=== PATIENT | female | born 1935 | race Caucasian/White ===

== ENCOUNTER 2017-03-31 07:12 | Emergency (ER) | payer MEDICARE, BC ==
[2017-03-31 07:33] VITALS: BP 184/109
--- NOTE | 2017-03-31 08:17 | EDM.PDOC ---
ED HPI GENERAL MEDICAL PROBLEM - General Chief Complaint: Respiratory Problem Stated Complaint: RESPIRATORY ISSUES Time Seen by Provider: 03/31/17 07:16 Source of Information: Reports: Family (2 daughters + [id number]) History Limitations: Reports: Altered Mental Status - History of Present Illness INITIAL COMMENTS - FREE TEXT/NARRATIVE: The patient has Alzheimer dementia and is unable to contribute to her history. The patient's 2 daughters and [id number] state that the patient woke this morning screaming, appearing to be short of breath, complaining of chest pain and left second toe pain. She had a cough. They state that she has had cold- like symptoms, including rhinorrhea, for approximately 10 days, and state that her urine has been malodorous for the past 3-4 days. The patient has not had a fever. No recent vomiting. She had some watery diarrhea 2 or 3 days ago, but appeared to be constipated today. The patient has a history of diabetes, hypertension, and dyslipidemia, but no heart or lung disease. The family relates that the patient's about a week ago. She lives at home with family members. The family does not know if the patient received an influenza vaccine this season. The patient's PCP is Dr. Anisa York. 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: Neurological History: Reports: Alzheimers Disease Psychiatric History: Reports: Depression Endocrine/Metabolic History: Reports: Diabetes, Type II, Hypothyroidism, Obesity /BMI 30+ - Past Surgical History HEENT Surgical History: Reports: Cataract Surgery Musculoskeletal Surgical History: Reports: Hip Replacement (right) Social & Family History - Tobacco Use Smoking Status *Q: Never Smoker Month Tobacco Last Used: 30 yrs ago Second Hand Smoke Exposure: No - Caffeine Use Caffeine Use: Reports: Coffee - Recreational Drug Use Recreational Drug Use: No - Living Situation & Occupation Living situation: Reports: , with Family Occupation: Retired ED ROS GENERAL - Review of Systems Review Of Systems: ROS reveals no pertinent complaints other than HPI. ED EXAM, GENERAL - Physical Exam Exam: See Below Exam Limited By: Altered Mental Status General Appearance: WD/WN, Other (The patient remained with her eyes closed shut , moaning, however, she did take deep breaths upon request) Ears: Normal External Exam, Hearing Grossly Normal Nose: Normal Inspection, No Blood Throat/Mouth: Normal Inspection, Normal Lips, Normal Voice, No Airway Compromise Head: Atraumatic, Normocephalic Neck: Normal Inspection, Full Range of Motion Respiratory/Chest: No Respiratory Distress, Lungs Clear, Normal Breath Sounds, No Accessory Muscle Use Cardiovascular: Normal Peripheral Pulses, No Gallop, No JVD, No Murmur, No Rub, Irregularly Irregular Peripheral Pulses: 4+: Radial (L), Radial (R) GI/Abdominal: Normal Bowel Sounds, Soft, No Organomegaly, No Distention, No Abnormal Bruit, No Mass, Tender (Generalized, non-focal (manifested by increased moaning)), Other (Obese) (Female) Exam: Deferred Rectal (Female) Exam: Deferred Extremities: Normal Inspection, Normal Range of Motion, Non-Tender (including the left 2nd toe, which has had thetoenail removed), No Pedal Edema, Normal Capillary Refill, Other (No swelling or erythema, to suggest an infection) Neurological: Other (Moves all 4 extremities spontaneously.) Psychiatric: Other (Unable to assess) Skin Exam: Warm, Dry, Intact, Normal Color, No Rash EKG INTERPRETATION EKG Date: 03/31/17 Time: 08:40 Rhythm: Other (Wandering atrial pacemaker) Rate (Beats/Min): 96 Fleming: LAD-Left Fleming Deviation P-Wave: Present QRS: Normal ST-T: Normal QT: Prolonged (QTc 519 ms) Comparison: NA - No Prior EKG Course - Vital Signs Last Recorded V/S: Last Vital Signs Temp 36.3 C 03/31/17 07:24 Pulse 89 03/31/17 07:24 Resp 20 03/31/17 07:24 BP 184/109 H 03/31/17 07:24 Pulse Ox 95 03/31/17 07:24 - Orders/Labs/Meds Orders: Active Orders 24 hr Category Date Time Status EKG Documentation Completion [RC] STAT Care 03/31/17 08:07 Active CULTURE URINE [RM] Stat Lab 03/31/17 08:40 Received Magnesium Sulfate/Water [Magnesium Sulfate 2 GM in Med 03/31/17 08:58 Active Water 50 ML] 2 gm Premix Bag 1 bag IV ONETIME Medication Orders Magnesium Sulfate 2 gm/ Premix 50 mls @ 50 mls/hr IV ONETIME ONE Stop: 03/31/17 09:57 Last Admin: 03/31/17 09:16 Dose: 50 mls/hr Labs: Laboratory Tests 03/31/17 03/31/17 03/31/17 Range/Units 07:25 07:25 08:30 WBC 6.89 (3.98-10.04) K/mm3 RBC 4.66 (3.98-5.22) M/mm3 Hgb 13.9 (11.2-15.7) gm/L Hct 41.7 (34.1-44.9) % MCV 89.5 (79.4-94.8) fl MCH 29.8 (25.6-32.2) pg MCHC 33.3 (32.2-35.5) g/dl RDW Std Deviation 44.1 (36.4-46.3) fL Plt Count 198 (182-369) K/mm3 MPV 11.9 (9.4-12.3) fl Neutrophils % (Manual) 29 L (40-60) % Band Neutrophils % 0 (0-10) % Lymphocytes % (Manual) 58 H (20-40) % Atypical Lymphs % 0 % Monocytes % (Manual) 10 (2-10) % Eosinophils % (Manual) 2 (0.7-5.8) % Basophils % (Manual) 1 (0.1-1.2) Differential Comment See note Platelet Estimate Adequate RBC Morph Comment Normal Sodium 140 (136-145) mEq/L Potassium 4.1 (3.5-5.1) mEq/L Chloride 102 (98-107) mEq/L Carbon Dioxide 26 (21-32) mEq/L Anion Gap 16.1 H (5-15) BUN 18 (7-18) mg/dL Creatinine 1.1 H (0.55-1.02) mg/dL Est Cr Clr Drug Dosing 35.22 mL/min Estimated GFR (MDRD) 48 (>60) mL/min BUN/Creatinine Ratio 16.4 (14-18) Glucose 148 H (83-115) mg/dL Calcium 8.9 (8.5-10.1) mg/dL Magnesium 1.4 L (1.8-2.4) mg/dl Total Bilirubin 0.3 (0.2-1.0) mg/dL AST 15 (15-37) U/L ALT 19 (14-59) U/L Alkaline Phosphatase 59 (46-116) U/L Troponin I < 0.017 (0.00-0.056) ng/mL NT-Pro-B Natriuret Pep 317 (0-450) pg/mL Total Protein 7.5 (6.4-8.2) g/dl Albumin 3.2 L (3.4-5.0) g/dl Globulin 4.3 gm/dL Albumin/Globulin Ratio 0.7 L (1-2) Lipase 142 (73-393) U/L Urine Color Yellow (Yellow) Urine Appearance Cloudy H (Clear) Urine pH 6.0 (5.0-8.0) Ur Specific Cameron 1.020 (1.005-1.030) Urine Protein 1+ H (Negative) Urine Glucose (UA) Negative (Negative) Urine Ketones Negative (Negative) Urine Occult Blood Trace-lysed H (Negative) Urine Nitrite Positive H (Negative) Urine Bilirubin Negative (Negative) Urine Urobilinogen 0.2 (0.2-1.0) Ur Leukocyte Esterase 2+ H (Negative) Urine RBC 0-5 (0-5) /hpf Urine WBC 20-30 H (0-5) /hpf Ur Epithelial Cells 0-5 (0-5) /hpf Urine Bacteria Many H (FEW) /hpf Urine Mucus Few (FEW) /hpf Meds: Medications Generic Name Dose Route Start Last Admin Trade Name Freq PRN Reason Stop Dose Admin Magnesium Sulfate 2 gm/ Premix 50 mls @ 50 mls/hr 03/31/17 08:58 03/31/17 09: 16 IV 03/31/17 09:57 50 mls/hr ONETIME ONE Administration Discontinued Medications Generic Name Dose Route Start Last Admin Trade Name Freq PRN Reason Stop Dose Admin Trimethoprim/Sulfamethoxazole 1 tab 03/31/17 09:06 03/31/17 09:17 Septra Ds PO 03/31/17 09:07 1 tab ONETIME ONE Administration - Re-Assessments/Exams Free Text/Narrative Re-Assessment/Exam: 03/31/17 09:05 Two-view chest radiograph appears to be grossly normal. Cardiac silhouette is within normal limits. No pulmonary vascular congestion. No pleural effusions. No focal infiltrate. No pneumothorax. Formal read per the Radiologist pending. 03/31/17 09:06 The patient's urinalysis is consistent with a UTI. I have ordered a urine culture, and will start the patient on empiric oral Bactrim. The patient's magnesium level returned depressed at 1.4. I have ordered a 2 g magnesium rider. The remainder of the patient's workup is unremarkable. I do not see an indication for hospitalization. Once the patient's magnesium rider has infused, I will discharge her home. 03/31/17 09:46 The above plan was discussed with 3 family members at the bedside. 03/31/17 09:53 2 of the patient's daughters stated that the for the patient's is on Friday, and, speculating that the patient's earlier chest pain was related to anxiety, were wondering if I could prescribe some Xanax. Given the patient's age and fragility, however, I do not feel that would be appropriate for me to do. I recommended that they talk to Dr. York about that. 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 Workup in the ER included blood work, a urinalysis, and influenza swab, an ECG, and a chest x-ray. Her workup found that she has a urinary tract infection. She has been started on the antibiotic Bactrim. She should take one tablet every 12 hours, as prescribed. She should finish the entire prescription unless told otherwise by Dr. York. Her workup also found modestly low magnesium. Her magnesium was replaced by IV in the ER. Her ECG has an abnormality known as a wandering atrial pacemaker. This is not serious, and may have been there for a long time - we do not have any old ECGs to compare. A sample of her urine was sent for culture. Contact the office of Dr. Anisa York on , 04/03/2017, to check on the urine culture results, to make sure that Tabitha is on the correct antibiotic. If any other problems, please do not hesitate to return Tabitha to the ER. - My Orders Last 24 Hours: My Active Orders 03/31/17 08:07 EKG Documentation Completion [RC] STAT 03/31/17 08:40 CULTURE URINE [RM] Stat 03/31/17 08:58 Magnesium Sulfate/Water [Magnesium Sulfate 2 GM in Water 50 ML] 2 gm Premix Bag 1 bag IV ONETIME - Assessment/Plan Last 24 Hours: My Active Orders 03/31/17 08:07 EKG Documentation Completion [RC] STAT 03/31/17 08:40 CULTURE URINE [RM] Stat 03/31/17 08:58 Magnesium Sulfate/Water [Magnesium Sulfate 2 GM in Water 50 ML] 2 gm Premix Bag 1 bag IV ONETIME
--- NOTE | 2017-03-31 08:54 | CR ---
Chest: Two views of the chest were obtained. Comparison: No prior chest x-ray. Heart size and mediastinum are normal. Lungs are clear. Bony structures are within normal limits for the patient's age. Impression: 1. Nothing acute is seen on two-view chest x-ray. Diagnostic code #1
[2017-03-31] MEDS ORDERED: Magnesium Sulfate/Water 2 GM in Premix Bag 1 BAG IV ONE (08:58)
[2017-03-31] MEDS ORDERED: Sulfamethoxazole/Trimethoprim 800-160 MG Tab PO ONE (09:06)
== END 2017-03-31 10:44 | disposition home or self-care (01) ==
LOC: JD.ED 07:12
DX: I49.8 Other specified cardiac arrhythmias (principal); E11.9 Type 2 diabetes mellitus without complications; N30.01 Acute cystitis with hematuria; E83.42 Hypomagnesemia; I10 Essential (primary) hypertension; G30.9 Alzheimer's disease, unspecified; E78.00 Pure hypercholesterolemia, unspecified; E78.5 Hyperlipidemia, unspecified
CPT/HCPCS: 36415; 71046; 80053; 81001; 83690; 83735; 83880; 84484; 85025; 87086; 87088; 87186; 87804; 93005; 96365; 99285; A9270; 93010; J3475

== ENCOUNTER 2017-11-08 22:03 | Emergency (ER) | payer MEDICARE, BC ==
[2017-11-08 22:22] VITALS: BP 150/60
--- NOTE | 2017-11-08 22:47 | EDM.PDOC ---
ED HPI GENERAL MEDICAL PROBLEM - General Chief Complaint: Chest Pain Stated Complaint: PAIN UNDER RIGHT SHOULDER BLADE/SOB Time Seen by Provider: 11/08/17 22:47 Source of Information: Reports: Patient History Limitations: Reports: No Limitations - History of Present Illness INITIAL COMMENTS - FREE TEXT/NARRATIVE: 82-year-old female presents to the ED with 2 of her daughters. Tonight she is just not feeling well. She is complaining of pain that seems to sit underneath her right breast and pressure discomfort in her epigastrium with associated excessive belching to try and relieve the discomfort. Pain along her right shoulder blade which is gnawing at her. No known injuries to this area although she did fall a week ago but landed more in her hip on the left side. States she is perhaps a little more short of breath today than usual. Denies cough or sputum production. Denies fever or chills. Eyes any central chest pain. Denies any nausea or vomiting. Onset: Today, Sudden Onset Date: 11/08/17 Onset Time: 12:00 Duration: Hour(s): Location: Reports: Abdomen (Epigastric pain with radiation of pain along the costal margin which radiates through to her mid back. This is been a recurrent problem is worse today.), Back (Right upper back adjacent to her shoulder blade. ) Quality: Reports: Ache, Burning, Throbbing, Other Severity: Moderate (No position is comfortable in her upper back. Pain is rated as 7 out of 10) Improves with: Reports: None Worsens with: Reports: Movement Context: Denies: Activity (Certain movements seem to make it a bit worse), Exercise, Lifting, Sick Contact, Trauma, Other Associated Symptoms: Reports: Malaise, Shortness of Breath. 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 (see below) (No new medications.) Right Back Pain Score (Numeric/FACES): 10 - Related Data Allergies Allergy/AdvReac Type Severity Reaction Status Date / Time No Known Allergies Allergy Verified 03/31/17 07:34 Home Meds: Home Meds Furosemide [Lasix] 40 mg PO DAILY 03/31/17 [History] Insulin Aspart [Novolog Flexpen] 14 injection SUBCUT ACBREAKFAST 03/31/17 [ History] Insulin Detemir [Levemir Flextouch] 60 units SUBCUT QAM 03/31/17 [History] Levothyroxine [Levothroid] 137 mcg PO DAILY 03/31/17 [History] Lisinopril [Zestril] 20 mg PO BID 03/31/17 [History] Pravastatin [Pravachol] 20 mg PO DAILY 03/31/17 [History] Sertraline [Zoloft] 75 mg PO DAILY 03/31/17 [History] amLODIPine [Norvasc] 7.5 mg PO DAILY 03/31/17 [History] glipiZIDE [Glucotrol] 5 mg PO DAILY 03/31/17 [History] metFORMIN [Glucophage] 850 mg PO BID 03/31/17 [History] Acetaminophen [Acetaminophen Extra Strength] 1,000 mg PO BEDTIME 11/08/17 [ History] Aspirin 81 mg PO DAILY 11/08/17 [History] Gabapentin [Neurontin] 600 mg PO TID 11/08/17 [History] Insulin Aspart [NovoLOG] 7 units SQ ACLUNCH 11/08/17 [History] Insulin Aspart [NovoLOG] 10 units SQ ACDINNER 11/08/17 [History] Magnesium Oxide 400 mg PO BID 11/08/17 [History] Potassium Chloride 10 meq PO DAILY 11/08/17 [History] Pramipexole Di-HCl [Mirapex] 0.125 mg PO BEDTIME 11/08/17 [History] Sennosides [Senna] 8.6 mg PO DAILY 11/08/17 [History] Dicyclomine [Bentyl] 20 mg PO Q6H PRN #20 tablet 11/09/17 [Rx] oxyCODONE HCl/Acetaminophen [Percocet 5-325 mg Tablet] 1 each PO Q6H PRN #10 tablet 11/09/17 [Rx] Past Medical History HEENT History: Reports: Impaired Vision Other HEENT History: Wears glasses Cardiovascular History: Reports: Heart Failure, High Cholesterol, Hypertension, [place] Gastrointestinal History: Reports: GERD Genitourinary History: Reports: UTI, 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: Neurological History: Reports: Alzheimers Disease Psychiatric History: Reports: Dementia, Depression Endocrine/Metabolic History: Reports: Diabetes, Type II (Using insulin for current sugar control), Hypothyroidism (On supplementation), Obesity/BMI 30+, Vitamin D Deficiency (Hypomagnesemia), Other (See Below) - Past Surgical History HEENT Surgical History: Reports: Cataract Surgery Musculoskeletal Surgical History: Reports: Hip Replacement Social & Family History - Caffeine Use Caffeine Use: Reports: Coffee - Living Situation & Occupation Living situation: Reports: , with Family Occupation: Retired ED ROS GENERAL - Review of Systems Review Of Systems: See Below Constitutional: Reports: Malaise, Weakness, Fatigue, Decreased Appetite. Denies : Fever, Chills, Weight Loss HEENT: Reports: Glasses, Vertigo (Occasional.). Denies: Hearing Loss, Nosebleed , Nose Pain, Rhinitis, Throat Swelling Respiratory: Reports: Shortness of Breath. Denies: Wheezing, Pleuritic Chest Pain (Perhaps a little worse today), Cough, Sputum, Hemoptysis Cardiovascular: Reports: Blood Pressure Problem (Has chronic hypertension.), Dyspnea on Exertion. Denies: Chest Pain, Claudication, Edema, Lightheadedness, Orthopnea, Palpitations (Chronically) Endocrine: Reports: Fatigue, High Glucose GI/Abdominal: Reports: Abdominal Pain (Epigastric pain associated with a lot of burping and belching chronically to try and relieve this discomfort.), Constipation : Reports: Frequency, Incontinence (Post stress and urge components.) Musculoskeletal: Reports: Joint Pain (Knees hips back and neck.) Skin: Reports: No Symptoms Neurological: Reports: Difficulty Walking (Can't walk very far due to leg weakness and pain in her knees and hips). Denies: Confusion, Dizziness, Headache, Numbness, Pre-Existing Deficit, Seizure, Syncope, Tingling Psychiatric: Reports: No Symptoms Hematologic/Lymphatic: Reports: No Symptoms Immunologic: Reports: No Symptoms ED EXAM, GENERAL - Physical Exam Exam: See Below Exam Limited By: No Limitations General Appearance: Alert, WD/WN, Moderate Distress (Just seems to be out of sorts with no position,.) Eye Exam: Bilateral Eye: Normal Inspection Neck: Normal Inspection, Limited Range of Motion, Tender Lateral (Bilateral cervical neck discomfort to palpation both posterior arthritic changes). No: Carotid Bruit, Lymphadenopathy (L), Lymphadenopathy (R) Respiratory/Chest: Respiratory Distress (Mild tachypnea at rest. O2 sats are 94 % on room air), Decreased Breath Sounds (Decreased breath sounds to the lower 20 % of lung cooper bilaterally), Crackles (Patient has crackles/rales in both bases perhaps a little worse on the right as compared to the left.) Cardiovascular: Regular Rate, Rhythm, No Edema, No Gallop, No Murmur, No Rub. No: Normal Peripheral Pulses Peripheral Pulses: 0: Posterior Tibial (L), Posterior Tibial (R), Dorsalis Pedis (L), Dorsalis Pedis (R), 1+: Femoral (L), Femoral (R), 2+: Carotid (L), Carotid (R), Radial (L), Radial (R) GI/Abdominal: Normal Bowel Sounds, Soft, Distended (Mildly distended and slightly hyperattenuated tympanitic to percussion in the epigastrium compatible with aerophagia.), Tender (Tenderness primarily in the epigastrium and along the costal margins bilaterally. No positive Bal's sign.) Back Exam: Decreased Range of Motion, Vertebral Tenderness (She has diffuse tenderness along the vertebra of the lumbar spine bilaterally.), Other (Patient has paraspinal muscle spasm on the right side from thoracic 4 to thoracic 9 vertebral. She has maximal point tenderness at the C5 rib head which seems to be causing a good deal of her right mid back pain.). No: CVA Tenderness (L), CVA Tenderness (R) Extremities: Limited Range of Motion (She has evidence most arthritic changes both knees and is severely limited range of motion both hips externally rotated compared with most arthritic changes.), Other (Labs are nontender with no evidence of DVT.). No: Normal Range of Motion Neurological: Alert, Oriented, CN II-XII Intact, Normal Cognition, Normal Gait Psychiatric: Normal Affect, Anxious Skin Exam: Warm, Dry (Mild), Intact, Normal Color, No Rash EKG INTERPRETATION EKG Date: 11/08/17 Time: 23:05 Rhythm: NSR Rate (Beats/Min): 72 [place]: LAD-Left [place] Deviation (-45) P-Wave: Present QRS: Other (There is initial poor R-wave progression with development of Q waves V4 V5 and V6 compatible with a anterior apical infarction. There are Q waves also in leads II, III, and F aVF compatible with an inferior wall myocardial infarction.) ST-T: Other (T-wave flattening in aVL which is nonspecific) QT: Normal EKG Interpretation Comments: Abnormal ECG Course - Vital Signs Last Recorded V/S: Last Vital Signs Temp 36.6 C 11/08/17 22:19 Pulse 67 11/08/17 22:19 Resp 21 H 11/08/17 22:19 BP 150/60 H 11/08/17 22:19 Pulse Ox 94 L 11/08/17 22:19 - Orders/Labs/Meds Orders: Active Orders 24 hr Category Date Time Status EKG Documentation Completion [RC] STAT Care 11/08/17 22:48 Active Chest 1V Frontal [CR] Stat Exams 11/08/17 22:48 Taken Labs: Laboratory Tests 11/08/17 11/08/17 11/08/17 Range/Units 23:04 23:04 23:04 WBC 10.15 H (3.98-10.04) K/mm3 RBC 4.66 (3.98-5.22) M/mm3 Hgb 13.1 (11.2-15.7) gm/L Hct 39.6 (34.1-44.9) % MCV 85.0 (79.4-94.8) fl MCH 28.1 (25.6-32.2) pg MCHC 33.1 (32.2-35.5) g/dl RDW Std Deviation 43.0 (36.4-46.3) fL Plt Count 229 (182-369) K/mm3 MPV 11.4 (9.4-12.3) fl Neutrophils % (Manual) 72 H (40-60) % Band Neutrophils % 1 (0-10) % Lymphocytes % (Manual) 22 (20-40) % Atypical Lymphs % 0 % Monocytes % (Manual) 4 (2-10) % Eosinophils % (Manual) 1 (0.7-5.8) % Basophils % (Manual) 0 L (0.1-1.2) Platelet Estimate Adequate RBC Morph Comment Normal PT 10.5 (9.5-12.1) SECONDS INR 0.96 D-Dimer, Quantitative 0.51 H (0.19-0.50) mg/L Sodium 137 (136-145) mEq/L Potassium 4.8 (3.5-5.1) mEq/L Chloride 102 (98-107) mEq/L Carbon Dioxide 25 (21-32) mEq/L Anion Gap 14.8 (5-15) BUN 21 H (7-18) mg/dL Creatinine 1.2 H (0.55-1.02) mg/dL Est Cr Clr Drug Dosing 26.41 mL/min Estimated GFR (MDRD) 43 (>60) mL/min BUN/Creatinine Ratio 17.5 (14-18) Glucose 121 H (83-115) mg/dL Calcium 9.5 (8.5-10.1) mg/dL Magnesium 1.6 L (1.8-2.4) mg/dl Total Bilirubin 0.2 (0.2-1.0) mg/dL AST 16 (15-37) U/L ALT 17 (14-59) U/L Alkaline Phosphatase 93 (46-116) U/L CK-MB (CK-2) 2.1 (0-3.6) ng/ml Troponin I < 0.017 (0.00-0.056) ng/mL C-Reactive Protein 0.2 (<1.0) mg/dL NT-Pro-B Natriuret Pep (0-450) pg/mL Total Protein 7.7 (6.4-8.2) g/dl Albumin 3.4 (3.4-5.0) g/dl Globulin 4.3 gm/dL Albumin/Globulin Ratio 0.8 L (1-2) /18/18 Range/Units 23:04 WBC (3.98-10.04) K/mm3 RBC (3.98-5.22) M/mm3 Hgb (11.2-15.7) gm/L Hct (34.1-44.9) % MCV (79.4-94.8) fl MCH (25.6-32.2) pg MCHC (32.2-35.5) g/dl RDW Std Deviation (36.4-46.3) fL Plt Count (182-369) K/mm3 MPV (9.4-12.3) fl Neutrophils % (Manual) (40-60) % Band Neutrophils % (0-10) % Lymphocytes % (Manual) (20-40) % Atypical Lymphs % % Monocytes % (Manual) (2-10) % Eosinophils % (Manual) (0.7-5.8) % Basophils % (Manual) (0.1-1.2) Platelet Estimate RBC Morph Comment PT (9.5-12.1) SECONDS INR D-Dimer, Quantitative (0.19-0.50) mg/L Sodium (136-145) mEq/L Potassium (3.5-5.1) mEq/L Chloride (98-107) mEq/L Carbon Dioxide (21-32) mEq/L Anion Gap (5-15) BUN (7-18) mg/dL Creatinine (0.55-1.02) mg/dL Est Cr Clr Drug Dosing mL/min Estimated GFR (MDRD) (>60) mL/min BUN/Creatinine Ratio (14-18) Glucose (83-115) mg/dL Calcium (8.5-10.1) mg/dL Magnesium (1.8-2.4) mg/dl Total Bilirubin (0.2-1.0) mg/dL AST (15-37) U/L ALT (14-59) U/L Alkaline Phosphatase (46-116) U/L CK-MB (CK-2) (0-3.6) ng/ml Troponin I (0.00-0.056) ng/mL C-Reactive Protein (<1.0) mg/dL NT-Pro-B Natriuret Pep 617 H (0-450) pg/mL Total Protein (6.4-8.2) g/dl Albumin (3.4-5.0) g/dl Globulin gm/dL Albumin/Globulin Ratio (1-2) Meds: Medications Discontinued Medications Generic Name Dose Route Start Last Admin Trade Name Elian PRN Reason Stop Dose Admin Dicyclomine HCl 20 mg 11/09/17 00:36 11/09/17 00:53 Bentyl PO 11/09/17 00:37 20 mg ONETIME ONE Administration Ondansetron HCl 4 mg 11/09/17 00:38 11/09/17 00:52 Zofran Odt PO 11/09/17 00:39 4 mg ONETIME ONE Administration Oxycodone/Acetaminophen 1 tab 11/09/17 00:38 11/09/17 00:52 Percocet 325-5 Mg PO 11/09/17 00:39 1 tab ONETIME ONE Administration - Radiology Interpretation Free Text/Narrative:: 82-year-old female brought to the ED by 2 of her daughters due to her just generally feeling poor. She is complaining primarily of pain in her right upper back between her shoulder blade in her spine. No known injuries. She has associated epigastric pressure discomfort with excessive burping and belching. He just doesn't feel well. No noted fever or chills. Is a history of insulin- dependent diabetes and sugars tend to run around 180. She does has urinary frequency. Denies any dysuria at this time. Perhaps is a little more short of breath than normal. She hasn't a lot of burping and belching to try and relieve epigastric pressure discomfort. This is a chronic problem. She never been told she has a hiatal hernia in the past but clinically this is highly suspect. Examination reveals paraspinal muscle spasm on the right side over rib head subluxation at thoracic 5 rib head. She has diffuse low back pain due to degenerative arthritic changes. He is tender in the epigastrium. Plan ECG chest x-ray to be done portably rule out myocardial infarction and PE. Medically her pain appears to be musculoskeletal in origin. Her abdominal discomfort and excessive burping and belching is most likely due to hiatal hernia. - Re-Assessments/Exams Free Text/Narrative Re-Assessment/Exam: 11/09/17 00:29 chest x-ray done portably reveals moderate cardiomegaly. 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 There is mild tortuosity of the thoracic aorta. There is very mild diffuse vascular congestion pattern with no pleural effusions. Transfer text. 11/09/17 00:32 Labs revealed a mildly elevated white count at 10.15 within 72% neutrophils and 1% band cells reported. Hemoglobin is 13.1 with hematocrit of 39.6. PT is 10.5 with an INR 0.96. D-dimer is 0.51 which is normal for her age. Sodium is 137 with potassium of 4.8. Cord 102 with a bicarbonate 25. And a gap is normal at 14.8. BUN is minimally elevated at 21 with a creatinine of 1.2. EGFR is reported to be 43. This suggests grade 3 renal insufficiency. Blood sugar today is 121. Calcium is 9.5 magnesium is slightly low at 1.6. Lobe and is 0.2. AST is 16 and ALT is 17. Alkaline phosphatase normal at 93. CK-MB fraction is 2.1 with a troponin I of less than 0.017. C-reactive protein is 0.2. BNP is elevated at 617. Patient and daughter is reassured of the findings. Peers that her pain is musculoskeletal in origin. Plan is to give her one Percocet tablet now for pain relief with Zofran 4 mg sublingually. Bentyl 29 g will also be given by mouth to help alleviate upper epigastric pain which I believe is due to hiatal hernia discomfort. She will need to see a chiropractor to have a rib heads luxation reduced in her right upper back. I did write a prescription for Bentyl 20 mg to be used on a every 6-8 hour when necessary basis for similar type symptoms with excessive burping belching due to hiatal hernia type pain. Advised her to increase her Lasix dose from 40 mg once daily in the morning to 40 in the morning and 20 in the p.m. for the next week and then follow-up with her personal care physician. Note she is already mildly hypomagnesemic but is on a magnesium supplement but admits she doesn't always take it. Departure - Departure Time of Disposition: 00:39 Disposition: Home, Self-Care 01 Condition: Fair Clinical Impression: Epigastric abdominal pain, Hiatal hernia CHF (congestive heart failure) Qualifiers: Heart failure type: diastolic Heart failure chronicity: chronic Qualified Code( s): I50.32 - Chronic diastolic (congestive) heart failure Acute thoracic back pain Qualifiers: Back pain laterality: right Qualified Code(s): M54.6 - Pain in thoracic spine - Discharge Information *PRESCRIPTION DRUG MONITORING PROGRAM REVIEWED*: Not Applicable *COPY OF PRESCRIPTION DRUG MONITORING REPORT IN PATIENT ROCHELLE: Not Applicable Prescriptions: Dicyclomine [Bentyl] 20 mg PO Q6H PRN #20 tablet PRN Reason: Abdominal cramps/diarrhea oxyCODONE HCl/Acetaminophen [Percocet 5-325 mg Tablet] 1 each PO Q6H PRN #10 tablet PRN Reason: pain relief. Instructions: Hiatal Hernia, Heart Failure Referrals: Anisa York MD [Primary Care Provider] - Forms: ED Department Discharge Additional Instructions: Evaluation in the emergency room tonight in regards to 2 or 3 things. One is development of right upper thoracic back pain which identified to be a rib head subluxation at thoracic 5 level on the right side of your back. For whatever reason this rib head has partially dislocated is causing significant pain and discomfort due to overlying muscle spasm. I would suggest follow-up with the massage therapist or chiropractor have this rib head replaced back in its normal position to alleviate her pain. In the meantime you may use Percocet tablet 1 tablet every 6 hours as needed for pain relief. Second problem is epigastric pain that radiates along the lower rib cage bilaterally and through to mid back highly suggestive of a hiatal hernia. Excessive need to burp and belch with intermittent feeling of nausea as well. Is to use of Bentyl tablet 20 mg every 6-8 hours as needed for relief of this type of discomfort on an as- needed basis. Thirdly identify that there is an excess amount of fluid buildup in your lungs both by lab and x-ray. He need to increase your water pill to 40 mg in the morning and a further dose 20 mg or half a tablet at about 2:00 in the afternoon for the next week to clear the extra fluid out of your lungs. Suggest follow-up with her personal care physician in 7-10 days for recheck. Bentyl is helping her stomach then it may be refilled if there are no other problems. - My Orders Last 24 Hours: My Active Orders 11/08/17 22:48 EKG Documentation Completion [RC] STAT Chest 1V Frontal [CR] Stat - Assessment/Plan Last 24 Hours: My Active Orders 11/08/17 22:48 EKG Documentation Completion [RC] STAT Chest 1V Frontal [CR] Stat
[2017-11-09] MEDS ORDERED: Dicyclomine 10 MG Cap PO ONE (00:36)
[2017-11-09] MEDS ORDERED: Acetaminophen/oxyCODONE 325-5 MG Tab PO ONE (00:38)
[2017-11-09] MEDS ORDERED: Ondansetron 4 MG Tab.DIS PO ONE (00:38)
--- NOTE | 2017-11-13 09:22 | CR ---
Chest: Portable view of the chest was obtained. Comparison: Right chest x-ray of 03/31/17. Heart size and mediastinum are within normal limits. Lungs are clear without acute parenchymal change. Scoliosis is noted within the spine. Impression: 1. Nothing acute is seen on portable chest x-ray. Diagnostic code #2
== END 2017-11-09 00:55 | disposition home or self-care (01) ==
LOC: JD.ED 22:03
DX: I11.0 Hypertensive heart disease with heart failure (principal); I50.32 Chronic diastolic (congestive) heart failure; K44.9 Diaphragmatic hernia without obstruction or gangrene; M54.6 Pain in thoracic spine; I25.2 Old myocardial infarction; E11.9 Type 2 diabetes mellitus without complications; Z79.4 Long term (current) use of insulin; Z79.899 Other long term (current) drug therapy; Z79.84 Long term (current) use of oral hypoglycemic drugs
CPT/HCPCS: 36415; 71045; 80053; 82553; 83735; 83880; 84484; 85007; 85027; 85379; 85610; 86140; 93005; 99285; A9270

== ENCOUNTER 2019-11-20 08:55 | Inpatient (IN) | payer MEDICARE, BC ==
--- NOTE | 2019-11-20 09:17 | EDM.PDOC ---
ED HPI GENERAL MEDICAL PROBLEM - General Chief Complaint: General Stated Complaint: VOMITING/HIGH BP Time Seen by Provider: 11/20/19 09:07 - History of Present Illness INITIAL COMMENTS - FREE TEXT/NARRATIVE: 84-year-old female brought in from [facility]. She has had a fever vomiting and was hypoxic. According to the folks at [facility] I talked to yesterday she was fine this morning she was complaining of her left second toe being painful but she complains of her toes hurting all the time secondary to her diabetic neuropathy. She was found to be hypertensive after a single episode of emesis where she brought up some bilious material and her O2 saturation was about 81% on room air. She looked pale and shaky they checked her blood sugar and it was 180 they checked her blood sugar again it was approximately 250 she did receive her morning insulin. I have no other history on this patient with interviewing the patient she answers simple questions but mostly complains that her toe hurts. - Related Data Allergies Allergy/AdvReac Type Severity Reaction Status Date / Time No Known Allergies Allergy Verified 11/20/19 12:52 Home Meds: Home Meds Furosemide [Lasix] 80 mg PO DAILY 03/31/17 [History] Insulin Aspart [Novolog Flexpen] 18 injection SUBCUT ACBREAKFAST 03/31/17 [History] Insulin Detemir [Levemir Flextouch] 60 units SUBCUT QAM 03/31/17 [History] Levothyroxine [Levothroid] 137 mcg PO DAILY 03/31/17 [History] Sertraline [Zoloft] 100 mg PO DAILY 03/31/17 [History] amLODIPine [Norvasc] 7.5 mg PO DAILY 03/31/17 [History] lisinopriL [Zestril] 20 mg PO BID 03/31/17 [History] metFORMIN [Glucophage] 500 mg PO DAILY 03/31/17 [History] Acetaminophen [Acetaminophen Extra Strength] 650 mg PO BID 11/08/17 [History] Aspirin 81 mg PO DAILY 11/08/17 [History] Gabapentin [Neurontin] 600 mg PO TID 11/08/17 [History] Insulin Aspart [NovoLOG] 12 units SQ ACLUNCH 11/08/17 [History] Insulin Aspart [NovoLOG] 14 units SQ ACDINNER 11/08/17 [History] Magnesium Oxide 400 mg PO BID 11/08/17 [History] Potassium Chloride 10 meq PO DAILY 11/08/17 [History] Pramipexole Di-HCl [Mirapex] 0.25 mg PO BEDTIME 11/08/17 [History] Sennosides [Senna] 8.6 mg PO DAILY 11/08/17 [History] Dicyclomine [Bentyl] 20 mg PO Q6H PRN #20 tablet 11/09/17 [Rx] Acetaminophen [Tylenol] 650 mg PO Q6HR PRN 11/20/19 [History] Cyanocobalamin (Vitamin B12) [Vitamin B13] 500 mcg PO DAILY 11/20/19 [History] Omeprazole 20 mg PO DAILY 11/20/19 [History] Past Medical History HEENT History: Reports: Impaired Vision Other HEENT History: Wears glasses Cardiovascular History: Reports: Heart Failure, High Cholesterol, Hypertension, [place] Gastrointestinal History: Reports: GERD Genitourinary History: Reports: UTI, Recurrent [employer] History: Reports: Neurological History: Reports: Alzheimers Disease Psychiatric History: Reports: Dementia, Depression Endocrine/Metabolic History: Reports: Diabetes, Type II (Using insulin for current sugar control), Hypothyroidism (On supplementation), Obesity/BMI 30+, Vitamin D Deficiency (Hypomagnesemia), Other (See Below) - Past Surgical History HEENT Surgical History: Reports: Cataract Surgery Musculoskeletal Surgical History: Reports: Hip Replacement Social & Family History - Caffeine Use Caffeine Use: Reports: Coffee - Living Situation & Occupation Living situation: Reports: , with Family Occupation: Retired ED ROS GENERAL - Review of Systems Review Of Systems: See Below Reason Not Obtained: Unable to obtain from the patient at this time ED EXAM, GENERAL - Physical Exam Exam: See Below Free Text/Narrative:: Unable to obtain from the patient at this time Exam Limited By: Other (Dementia. She answers simple questions she denies pain other than her toe and when asked other questions she wants to talk about her toe.) General Appearance: Alert, Lethargic, Obese Eye Exam: Bilateral Eye: Normal Inspection Ears: Normal External Exam, Normal Canal, Hearing Grossly Normal, Normal TMs Nose: Normal Inspection, Normal Mucosa, No Blood Throat/Mouth: Normal Inspection, Normal Lips, Normal Gums, Normal Oropharynx, Normal Voice, No Airway Compromise Head: Atraumatic, Normocephalic Neck: Normal Inspection, Supple, Non-Tender, Full Range of Motion. No: Lymphadenopathy (L), Lymphadenopathy (R) Respiratory/Chest: No Respiratory Distress, Lungs Clear Cardiovascular: Regular Rate, Rhythm, No Murmur, Other (He has trace pitting edema in the lower extremities more so in the right) GI/Abdominal: Normal Bowel Sounds, Soft, Non-Tender Extremities: Other (Right lower leg is more erythematous and slightly warm compared to the left. She has trace pitting edema more so on the right) Psychiatric: Other (Significant dementia) Skin Exam: Warm, Dry, Intact Course - Vital Signs Last Recorded V/S: Last Vital Signs Temp 39.4 C H 11/20/19 16:12 Pulse 87 11/20/19 15:27 Resp 20 11/20/19 15:26 BP 137/52 L 11/20/19 15:26 Pulse Ox 91 L 11/20/19 15:27 - Orders/Labs/Meds Orders: Active Orders 24 hr Category Date Time Status CULTURE BLOOD [BC] Stat Lab 11/20/19 09:20 Received CULTURE BLOOD [BC] Stat Lab 11/20/19 09:40 Received CULTURE URINE [RM] Stat Lab 11/20/19 09:15 Received PROCALCITONIN [REF] Stat Lab 11/20/19 09:20 Received VANCOMYCIN TROUGH [CHEM] Timed Lab 11/23/19 12:30 Ordered Lactated Ringers [Ringers, Lactated] 1,000 ml Med 11/20/19 11:00 Active IV ASDIRECTED Pharmacy to Dose - Vancomycin Med 11/20/19 11:15 Active 1 dose .XX ONETIME PRN Blood Culture x2 Reflex Set [OM.PC] Stat Oth 11/20/19 09:32 Ordered Medication Orders Acetaminophen (Tylenol) 325 mg PO Q4H PRN PRN Reason: Pain (Mild 1-3)/fever Last Admin: 11/20/19 16:12 Dose: 325 mg Documented by: NADEEM Budesonide (Pulmicort) 0.5 mg NEB BIDRT NISHA Last Admin: 11/20/19 16:56 Dose: Not Given Documented by: KARIN Dextrose/Water (Dextrose 50% In Water) 50 ml IVPUSH ASDIRECTED PRN PRN Reason: Hypoglycemia Enoxaparin Sodium (Lovenox) 40 mg SUBCUT BID NISHA Guaifenesin (Mucinex) 600 mg PO BID PRN PRN Reason: Cough Hydralazine HCl (Apresoline) 10 mg IVPUSH Q2H PRN PRN Reason: Hypertension Lactated Ringer's (Ringers, Lactated) 1,000 mls @ 150 mls/hr IV ASDIRECTED [facility] Cefazolin Sodium/Dextrose 2 gm (/ Premix) 50 mls @ 100 mls/hr IV Q8H [facility] Last Admin: 11/20/19 12:27 Dose: 100 mls/hr Documented by: NADEEM Ipratropium [place] (Atrovent) 0.5 mg NEB Q8HRRT [facility] Last Admin: 11/20/19 13:47 Dose: 0.5 mg Documented by: KARIN Methyl Salicylate (Icy Hot Cream) 0 gm TOP Q2HR PRN PRN Reason: Pain (mild 1-3) Methylprednisolone Sodium Succinate (Solu-Medrol) 40 mg IVPUSH Q12H [facility] Stop: 11/21/19 04:46 Last Admin: 11/20/19 17:43 Dose: 40 mg Documented by: NADEEM Ondansetron HCl (Zofran) 4 mg IV Q6H PRN PRN Reason: Nausea/Vomiting Vancomycin HCl (Pharmacy To Dose - Vancomycin) 1 dose .XX ONETIME PRN PRN Reason: RX TO DOSE VANCO Labs: Laboratory Tests 11/20/19 11/20/19 11/20/19 Range/Units 09:15 09:20 09:20 WBC 15.61 H (3.98-10.04) K/mm3 RBC 4.92 (3.98-5.22) M/mm3 Hgb 13.2 (11.2-15.7) gm/dl Hct 42.0 (34.1-44.9) % MCV 85.4 (79.4-94.8) fl MCH 26.8 (25.6-32.2) pg MCHC 31.4 L (32.2-35.5) g/dl RDW Std Deviation 44.8 (36.4-46.3) fL Plt Count 233 (182-369) K/mm3 MPV 11.3 (9.4-12.3) fl Neutrophils % (Manual) 88 H (40-60) % Band Neutrophils % 0 (0-10) % Lymphocytes % (Manual) 12 L (20-40) % Atypical Lymphs % 0 % Monocytes % (Manual) 0 L (2-10) % Eosinophils % (Manual) 0 L (0.7-5.8) % Basophils % (Manual) 0 L (0.1-1.2) Platelet Estimate Adequate RBC Morph Comment Normal PT 10.7 (9.7-11.7) SECONDS INR 1.00 Puncture Site ABG pH (7.35-7.45) ABG pCO2 (35.0-45.0) mmHg ABG pO2 (80.0-100.0) mmHg ABG HCO3 (22.0-26.0) meq/L ABG O2 Saturation (96.0-97.0) % ABG Base Excess (-2-2.0) Gianluca Test A-a Gradient mmHg O2 Delivery Device FiO2 (21.00-100.00) % Sodium (136-145) mEq/L Potassium (3.5-5.1) mEq/L Chloride (98-107) mEq/L Carbon Dioxide (21-32) mEq/L Anion Gap (5-15) BUN (7-18) mg/dL Creatinine (0.55-1.02) mg/dL Est Cr Clr Drug Dosing mL/min Estimated GFR (MDRD) (>60) mL/min BUN/Creatinine Ratio (14-18) Glucose (83-115) mg/dL Hemoglobin A1c (4.50-6.20) % Lactic Acid (0.4-2.0) mmol/L Calcium (8.5-10.1) mg/dL Phosphorus (2.6-4.7) mg/dL Magnesium (1.8-2.4) mg/dl Total Bilirubin (0.2-1.0) mg/dL AST (15-37) U/L ALT (14-59) U/L Alkaline Phosphatase (46-116) U/L Troponin I (0.00-0.056) ng/mL NT-Pro-B Natriuret Pep (0-450) pg/mL Total Protein (6.4-8.2) g/dl Albumin (3.4-5.0) g/dl Globulin gm/dL Albumin/Globulin Ratio (1-2) Urine Color Light yellow (Yellow) Urine Appearance Clear (Clear) Urine pH 7.0 (5.0-8.0) Ur Specific [place] 1.020 (1.005-1.030) Urine Protein 1+ H (Negative) Urine Glucose (UA) Negative (Negative) Urine Ketones 1+ H (Negative) Urine Occult Blood Trace-intact H (Negative) Urine Nitrite Negative (Negative) Urine Bilirubin Negative (Negative) Urine Urobilinogen 0.2 (0.2-1.0) Ur Leukocyte Esterase 1+ H (Negative) Urine RBC 0-5 (0-5) /hpf Urine WBC 50-75 H (0-5) /hpf Ur Epithelial Cells 0-5 (0-5) /hpf Urine Bacteria Few (FEW) /hpf Urine Mucus Few (FEW) /hpf SARS Virus RNA (PCR) (NEGATIVE) 11/20/19 11/20/19 11/20/19 Range/Units 09:20 09:20 09:20 WBC (3.98-10.04) K/mm3 RBC (3.98-5.22) M/mm3 Hgb (11.2-15.7) gm/dl Hct (34.1-44.9) % MCV (79.4-94.8) fl MCH (25.6-32.2) pg MCHC (32.2-35.5) g/dl RDW Std Deviation (36.4-46.3) fL Plt Count (182-369) K/mm3 MPV (9.4-12.3) fl Neutrophils % (Manual) (40-60) % Band Neutrophils % (0-10) % Lymphocytes % (Manual) (20-40) % Atypical Lymphs % % Monocytes % (Manual) (2-10) % Eosinophils % (Manual) (0.7-5.8) % Basophils % (Manual) (0.1-1.2) Platelet Estimate RBC Morph Comment PT (9.7-11.7) SECONDS INR Puncture Site ABG pH (7.35-7.45) ABG pCO2 (35.0-45.0) mmHg ABG pO2 (80.0-100.0) mmHg ABG HCO3 (22.0-26.0) meq/L ABG O2 Saturation (96.0-97.0) % ABG Base Excess (-2-2.0) Gianluca Test A-a Gradient mmHg O2 Delivery Device FiO2 (21.00-100.00) % Sodium 133 L (136-145) mEq/L Potassium 4.3 (3.5-5.1) mEq/L Chloride 98 (98-107) mEq/L Carbon Dioxide 29 (21-32) mEq/L Anion Gap 10.3 (5-15) BUN 27 H (7-18) mg/dL Creatinine 1.3 H (0.55-1.02) mg/dL Est Cr Clr Drug Dosing 27.12 mL/min Estimated GFR (MDRD) 39 (>60) mL/min BUN/Creatinine Ratio 20.8 H (14-18) Glucose 209 H (83-115) mg/dL Hemoglobin A1c (4.50-6.20) % Lactic Acid 1.8 (0.4-2.0) mmol/L Calcium 9.3 (8.5-10.1) mg/dL Phosphorus (2.6-4.7) mg/dL Magnesium (1.8-2.4) mg/dl Total Bilirubin 0.5 (0.2-1.0) mg/dL AST 18 (15-37) U/L ALT 18 (14-59) U/L Alkaline Phosphatase 88 (46-116) U/L Troponin I 0.155 H* (0.00-0.056) ng/mL NT-Pro-B Natriuret Pep 740 H (0-450) pg/mL Total Protein 8.5 H (6.4-8.2) g/dl Albumin 3.8 (3.4-5.0) g/dl Globulin 4.7 gm/dL Albumin/Globulin Ratio 0.8 L (1-2) Urine Color (Yellow) Urine Appearance (Clear) Urine pH (5.0-8.0) Ur Specific [place] (1.005-1.030) Urine Protein (Negative) Urine Glucose (UA) (Negative) Urine Ketones (Negative) Urine Occult Blood (Negative) Urine Nitrite (Negative) Urine Bilirubin (Negative) Urine Urobilinogen (0.2-1.0) Ur Leukocyte Esterase (Negative) Urine RBC (0-5) /hpf Urine WBC (0-5) /hpf Ur Epithelial Cells (0-5) /hpf Urine Bacteria (FEW) /hpf Urine Mucus (FEW) /hpf SARS Virus RNA (PCR) (NEGATIVE) 11/20/19 11/20/19 11/20/19 Range/Units 09:20 09:20 09:20 WBC (3.98-10.04) K/mm3 RBC (3.98-5.22) M/mm3 Hgb (11.2-15.7) gm/dl Hct (34.1-44.9) % MCV (79.4-94.8) fl MCH (25.6-32.2) pg MCHC (32.2-35.5) g/dl RDW Std Deviation (36.4-46.3) fL Plt Count (182-369) K/mm3 MPV (9.4-12.3) fl Neutrophils % (Manual) (40-60) % Band Neutrophils % (0-10) % Lymphocytes % (Manual) (20-40) % Atypical Lymphs % % Monocytes % (Manual) (2-10) % Eosinophils % (Manual) (0.7-5.8) % Basophils % (Manual) (0.1-1.2) Platelet Estimate RBC Morph Comment PT (9.7-11.7) SECONDS INR Puncture Site ABG pH (7.35-7.45) ABG pCO2 (35.0-45.0) mmHg ABG pO2 (80.0-100.0) mmHg ABG HCO3 (22.0-26.0) meq/L ABG O2 Saturation (96.0-97.0) % ABG Base Excess (-2-2.0) Gianluca Test A-a Gradient mmHg O2 Delivery Device FiO2 (21.00-100.00) % Sodium (136-145) mEq/L Potassium (3.5-5.1) mEq/L Chloride (98-107) mEq/L Carbon Dioxide (21-32) mEq/L Anion Gap (5-15) BUN (7-18) mg/dL Creatinine (0.55-1.02) mg/dL Est Cr Clr Drug Dosing mL/min Estimated GFR (MDRD) (>60) mL/min BUN/Creatinine Ratio (14-18) Glucose (83-115) mg/dL Hemoglobin A1c (4.50-6.20) % Lactic Acid (0.4-2.0) mmol/L Calcium (8.5-10.1) mg/dL Phosphorus 2.6 (2.6-4.7) mg/dL Magnesium 1.8 (1.8-2.4) mg/dl Total Bilirubin (0.2-1.0) mg/dL AST (15-37) U/L ALT (14-59) U/L Alkaline Phosphatase (46-116) U/L Troponin I (0.00-0.056) ng/mL NT-Pro-B Natriuret Pep (0-450) pg/mL Total Protein (6.4-8.2) g/dl Albumin (3.4-5.0) g/dl Globulin gm/dL Albumin/Globulin Ratio (1-2) Urine Color (Yellow) Urine Appearance (Clear) Urine pH (5.0-8.0) Ur Specific [place] (1.005-1.030) Urine Protein (Negative) Urine Glucose (UA) (Negative) Urine Ketones (Negative) Urine Occult Blood (Negative) Urine Nitrite (Negative) Urine Bilirubin (Negative) Urine Urobilinogen (0.2-1.0) Ur Leukocyte Esterase (Negative) Urine RBC (0-5) /hpf Urine WBC (0-5) /hpf Ur Epithelial Cells (0-5) /hpf Urine Bacteria (FEW) /hpf Urine Mucus (FEW) /hpf SARS Virus RNA (PCR) Negative (NEGATIVE) 11/20/19 11/20/19 Range/Units 09:20 10:23 WBC (3.98-10.04) K/mm3 RBC (3.98-5.22) M/mm3 Hgb (11.2-15.7) gm/dl Hct (34.1-44.9) % MCV (79.4-94.8) fl MCH (25.6-32.2) pg MCHC (32.2-35.5) g/dl RDW Std Deviation (36.4-46.3) fL Plt Count (182-369) K/mm3 MPV (9.4-12.3) fl Neutrophils % (Manual) (40-60) % Band Neutrophils % (0-10) % Lymphocytes % (Manual) (20-40) % Atypical Lymphs % % Monocytes % (Manual) (2-10) % Eosinophils % (Manual) (0.7-5.8) % Basophils % (Manual) (0.1-1.2) Platelet Estimate RBC Morph Comment PT (9.7-11.7) SECONDS INR Puncture Site Rt radial ABG pH 7.45 (7.35-7.45) ABG pCO2 36.9 (35.0-45.0) mmHg ABG pO2 54.0 L (80.0-100.0) mmHg ABG HCO3 25.2 (22.0-26.0) meq/L ABG O2 Saturation 85.1 L (96.0-97.0) % ABG Base Excess 1.8 (-2-2.0) Gianluca Test Positive A-a Gradient 128 mmHg O2 Delivery Device Room air FiO2 21.00 (21.00-100.00) % Sodium (136-145) mEq/L Potassium (3.5-5.1) mEq/L Chloride (98-107) mEq/L Carbon Dioxide (21-32) mEq/L Anion Gap (5-15) BUN (7-18) mg/dL Creatinine (0.55-1.02) mg/dL Est Cr Clr Drug Dosing mL/min Estimated GFR (MDRD) (>60) mL/min BUN/Creatinine Ratio (14-18) Glucose (83-115) mg/dL Hemoglobin A1c 6.00 (4.50-6.20) % Lactic Acid (0.4-2.0) mmol/L Calcium (8.5-10.1) mg/dL Phosphorus (2.6-4.7) mg/dL Magnesium (1.8-2.4) mg/dl Total Bilirubin (0.2-1.0) mg/dL AST (15-37) U/L ALT (14-59) U/L Alkaline Phosphatase (46-116) U/L Troponin I (0.00-0.056) ng/mL NT-Pro-B Natriuret Pep (0-450) pg/mL Total Protein (6.4-8.2) g/dl Albumin (3.4-5.0) g/dl Globulin gm/dL Albumin/Globulin Ratio (1-2) Urine Color (Yellow) Urine Appearance (Clear) Urine pH (5.0-8.0) Ur Specific [place] (1.005-1.030) Urine Protein (Negative) Urine Glucose (UA) (Negative) Urine Ketones (Negative) Urine Occult Blood (Negative) Urine Nitrite (Negative) Urine Bilirubin (Negative) Urine Urobilinogen (0.2-1.0) Ur Leukocyte Esterase (Negative) Urine RBC (0-5) /hpf Urine WBC (0-5) /hpf Ur Epithelial Cells (0-5) /hpf Urine Bacteria (FEW) /hpf Urine Mucus (FEW) /hpf SARS Virus RNA (PCR) (NEGATIVE) Meds: Medications Generic Name Dose Route Start Last Admin Trade Name Freq PRN Reason Stop Dose Admin Acetaminophen 325 mg 11/20/19 11:25 11/20/19 16:12 Tylenol PO 325 mg Q4H PRN Administration Pain (Mild 1-3)/fever Budesonide 0.5 mg 11/20/19 16:32 11/20/19 16:56 Pulmicort NEB Not Given BIDRT NISHA Dextrose/Water 50 ml 11/20/19 11:32 Dextrose 50% In Water IVPUSH ASDIRECTED PRN Hypoglycemia Enoxaparin Sodium 40 mg 11/20/19 21:00 Lovenox SUBCUT BID NISHA Guaifenesin 600 mg 11/20/19 11:32 Mucinex PO BID PRN Cough Hydralazine HCl 10 mg 11/20/19 11:32 Apresoline IVPUSH Q2H PRN Hypertension Lactated Ringer's 1,000 mls @ 150 mls/hr 11/20/19 11:00 Ringers, Lactated IV ASDIRECTED NISHA Cefazolin Sodium/Dextrose 2 gm 50 mls @ 100 mls/hr 11/20/19 12:00 11/20/19 12:27 / Premix IV 100 mls/hr Q8H NISHA Administration Ipratropium [place] 0.5 mg 11/20/19 14:00 11/20/19 13:47 Atrovent NEB 0.5 mg Q8HRRT NISHA Administration Methyl Salicylate 0 gm 11/20/19 18:18 Icy Hot Cream TOP Q2HR PRN Pain (mild 1-3) Methylprednisolone Sodium Succinate 40 mg 11/20/19 16:45 11/20/19 17:43 Solu-Medrol IVPUSH 11/21/19 04:46 40 mg Q12H NISHA Administration Ondansetron HCl 4 mg 11/20/19 11:25 Zofran IV Q6H PRN Nausea/Vomiting Vancomycin HCl 1 dose 11/20/19 11:15 Pharmacy To Dose - Vancomycin .XX ONETIME PRN RX TO DOSE VANCO Discontinued Medications Generic Name Dose Route Start Last Admin Trade Name Freq PRN Reason Stop Dose Admin Lactated Ringer's 1,000 mls @ 999 mls/hr 11/20/19 09:34 11/20/19 09:42 Ringers, Lactated IV 11/20/19 10:34 999 mls/hr .BOLUS ONE Administration Lactated Ringer's 500 mls @ 999 mls/hr 11/20/19 10:56 11/20/19 11:01 Ringers, Lactated IV 11/20/19 11:26 999 mls/hr .BOLUS ONE Administration Piperacillin Sod/Tazobactam 100 mls @ 200 mls/hr 11/20/19 11:08 11/20/19 11:23 Sod 4.5 gm/ Sodium Chloride IV 11/20/19 11:37 200 mls/hr ONETIME ONE Administration Vancomycin HCl 1 gm/ 500 mls @ 250 mls/hr 11/20/19 13:00 11/20/19 13:07 Vancomycin HCl 500 mg/ Sodium IV 11/20/19 14:59 250 mls/hr Chloride ONETIME ONE Administration Vancomycin HCl 1 gm/ Sodium 250 mls @ 250 mls/hr 11/21/19 13:00 Chloride IV Q24H NISHA Levalbuterol HCl 1.25 mg 11/20/19 16:33 11/20/19 18:47 Xopenex NEB Not Given Q8HRRT NISHA Ondansetron HCl 4 mg 11/20/19 10:07 11/20/19 10:22 Zofran IVPUSH 11/20/19 10:08 4 mg ONETIME ONE Administration - Re-Assessments/Exams Free Text/Narrative Re-Assessment/Exam: 11/20/19 10:34 She has an elevated white count urine is probably suggestive of UTI. Chest x- ray shows no definitive abnormality however she is rotated and I am wondering if perhaps she might have a infiltrate developing in the left lower costophrenic angle. The patient could be septic at this point and will definitely need to be admitted I have notified Dr. Avila, our hospitalist, of the situation and she will see the patient shortly. Departure - Departure Time of Disposition: 10:30 Disposition: Admitted As Inpatient 67 Clinical Impression: Urinary tract infection Qualifiers: Urinary tract infection type: acute cystitis Hematuria presence: with hematuria Qualified Code(s): N30.01 - Acute cystitis with hematuria - Discharge Information Sepsis Event Note (ED) - Focused Exam Vital Signs: Vital Signs Temp Pulse Resp BP Pulse Ox 11/20/19 09:16 38.3 C H 101 H 27 H 164/94 H 80 L - My Orders Last 24 Hours: My Active Orders 11/20/19 09:15 CULTURE URINE [RM] Stat 11/20/19 09:20 CULTURE BLOOD [BC] Stat PROCALCITONIN [REF] Stat 11/20/19 09:32 Blood Culture x2 Reflex Set [OM.PC] Stat 11/20/19 09:40 CULTURE BLOOD [BC] Stat 11/20/19 11:00 Lactated Ringers [Ringers, Lactated] 1,000 ml IV ASDIRECTED 11/20/19 11:15 Pharmacy to Dose - Vancomycin 1 dose .XX ONETIME PRN - Assessment/Plan Last 24 Hours: My Active Orders 11/20/19 09:15 CULTURE URINE [RM] Stat 11/20/19 09:20 CULTURE BLOOD [BC] Stat PROCALCITONIN [REF] Stat 11/20/19 09:32 Blood Culture x2 Reflex Set [OM.PC] Stat 11/20/19 09:40 CULTURE BLOOD [BC] Stat 11/20/19 11:00 Lactated Ringers [Ringers, Lactated] 1,000 ml IV ASDIRECTED 11/20/19 11:15 Pharmacy to Dose - Vancomycin 1 dose .XX ONETIME PRN
[2019-11-20] MEDS ORDERED: Lactated Ringers 1,000 ML IV ONE (09:34)
[2019-11-20] MEDS ORDERED: Ondansetron 4 MG/2 ML SDV IVPUSH ONE (10:07)
[2019-11-20] MEDS ORDERED: Lactated Ringers 500 ML IV ONE (10:56)
[2019-11-20] MEDS ORDERED: Piperacillin/Tazobactam 4.5 GM in Sodium Chloride 0.9% 100 ML IV ONE (11:08)
[2019-11-20] MEDS ORDERED: Ondansetron 4 MG/2 ML SDV IV PRN (11:25)
[2019-11-20] MEDS ORDERED: 50% Dextrose in Water 50 ML Syringe IVPUSH PRN (11:32)
[2019-11-20] MEDS ORDERED: hydrALAZINE 20 MG/ML SDV IVPUSH PRN (11:32)
--- NOTE | 2019-11-20 11:39 | CR ---
Chest: Portable upright view of the chest was obtained. Comparison: Prior chest x-ray of 11/08/17. Heart size and mediastinum are normal. Lung markings are minimally increased from prior study. Difficult to exclude mild bronchitis if patient is correlating symptoms. No alveolar type densities of pneumonia are seen. Bony structures are grossly intact. Impression: 1. Slight increased central lung markings raising the possibility of mild bronchitis. 2. Nothing acute is otherwise seen. Diagnostic code #3 This report was dictated in MDT
--- NOTE | 2019-11-20 11:52 | PCM.HP.2 ---
H&P History of Present Illness - General Date of Service: 11/20/19 Admit Problem/Dx: Admission Diagnosis/Problem Admission Diagnosis/Problem UTI, Urinary tract infectious disease - History of Present Illness Initial Comments - Free Text/Narative: Information obtained by chart review due to patient's cognitive status This is an 84-year-old male with past medical history of diabetes, hypertension and dementia who is brought to the ED via private car sent by [facility] for high blood pressure, vomiting bile, fever and pallor. As per [facility] staff patient was fine yesterday with usual complaints. Found to be hypertensive after vomiting episode and pulse ox dropped to 81%, described as looking pale and shaky. Glucose 180 with repeat 250 Bilateral Foot Pain Score (Numeric/FACES): 5 - Related Data Allergies/Adverse Reactions: Allergies Allergy/AdvReac Type Severity Reaction Status Date / Time No Known Allergies Allergy Verified 11/20/19 12:52 Home Medications: Home Meds Furosemide [Lasix] 80 mg PO DAILY 03/31/17 [History] Insulin Aspart [Novolog Flexpen] 18 injection SUBCUT ACBREAKFAST 03/31/17 [History] Insulin Detemir [Levemir Flextouch] 60 units SUBCUT QAM 03/31/17 [History] Levothyroxine [Levothroid] 137 mcg PO DAILY 03/31/17 [History] Sertraline [Zoloft] 100 mg PO DAILY 03/31/17 [History] amLODIPine [Norvasc] 7.5 mg PO DAILY 03/31/17 [History] lisinopriL [Zestril] 20 mg PO BID 03/31/17 [History] metFORMIN [Glucophage] 500 mg PO DAILY 03/31/17 [History] Acetaminophen [Acetaminophen Extra Strength] 650 mg PO BID 11/08/17 [History] Aspirin 81 mg PO DAILY 11/08/17 [History] Gabapentin [Neurontin] 600 mg PO TID 11/08/17 [History] Insulin Aspart [NovoLOG] 12 units SQ ACLUNCH 11/08/17 [History] Insulin Aspart [NovoLOG] 14 units SQ ACDINNER 11/08/17 [History] Magnesium Oxide 400 mg PO BID 11/08/17 [History] Potassium Chloride 10 meq PO DAILY 11/08/17 [History] Pramipexole Di-HCl [Mirapex] 0.25 mg PO BEDTIME 11/08/17 [History] Sennosides [Senna] 8.6 mg PO DAILY 11/08/17 [History] Dicyclomine [Bentyl] 20 mg PO Q6H PRN #20 tablet 11/09/17 [Rx] Acetaminophen [Tylenol] 650 mg PO Q6HR PRN 11/20/19 [History] Cyanocobalamin (Vitamin B12) [Vitamin B13] 500 mcg PO DAILY 11/20/19 [History] Omeprazole 20 mg PO DAILY 11/20/19 [History] Past Medical History HEENT History: Reports: Impaired Vision Other HEENT History: Wears glasses Cardiovascular History: Reports: Heart Failure, High Cholesterol, Hypertension, [place] Gastrointestinal History: Reports: GERD Genitourinary History: Reports: UTI, Recurrent [employer] History: Reports: Neurological History: Reports: Alzheimers Disease Psychiatric History: Reports: Dementia, Depression Endocrine/Metabolic History: Reports: Diabetes, Type II (Using insulin for current sugar control), Hypothyroidism (On supplementation), Obesity/BMI 30+, Vitamin D Deficiency (Hypomagnesemia), Other (See Below) - Past Surgical History HEENT Surgical History: Reports: Cataract Surgery Musculoskeletal Surgical History: Reports: Hip Replacement Social & Family History - Family History Family Medical History: Noncontributory - Tobacco Use Smoking Status *Q: Never Smoker Second Hand Smoke Exposure: No - Caffeine Use Caffeine Use: Reports: Coffee - Living Situation & Occupation Living situation: Reports: , with Family Occupation: Retired H&P Review of Systems - Review of Systems: Review Of Systems: Unable To Obtain Reason Not Obtained: Patient with cognitive impairment Exam - Exam Exam: See Below - Vital Signs Vital Signs: Last Vital Signs Temp 100.2 F 11/20/19 11:34 Pulse 101 H 11/20/19 09:16 Resp 27 H 11/20/19 09:16 BP 164/94 H 11/20/19 09:16 Pulse Ox 80 L 11/20/19 09:16 Weight: 105.868 kg - Exam Quality Assessment: Supplemental Oxygen General: Alert, Cooperative, Mild Distress, Moderate Distress HEENT: Conjunctiva Clear, EACs Clear, EOMI, Mucosa Moist & [place] Neck: Supple, Trachea Midline, Full Range of Motion, Carotid Bruit. No: Lymphadenopathy Lungs: Clear to Auscultation, Decreased Breath Sounds, Crackles, Wheezing (end expiratory). No: Rales, Rhonchi, Rub, Stridor Cardiovascular: Regular Rate, Regular Rhythm, Systolic Murmur. No: Diastolic Murmur, Rubs, Gallop/S3, Gallop/S4 GI/Abdominal Exam: Normal Bowel Sounds, Soft, Non-Tender, Distended. No: Guarding, Rigid, Rebound Extremities: Other (erythema over right phillips that covers most of anterior surface and goes around leg, no drainage or wounds visible. 1-2+ pitting edema) Peripheral Pulses: 2+: Radial (L), Radial (R), Dorsalis Pedis (L), Dorsalis Pedis (R) Skin: Warm, Dry, Rash Psychiatric: Normal Affect - Patient Data Result Diagrams: 11/22/19 05:20 11/22/19 05:20 Sepsis Event Note - Evaluation Sepsis Screening Result: No Definite Risk - Problem List (1) UTI (urinary tract infection) SNOMED Code(s): 87531547 ICD Code: N39.0 - URINARY TRACT INFECTION, SITE NOT SPECIFIED Status: Acute Current Visit: Yes Qualifiers: Urinary tract infection type: acute cystitis Hematuria presence: with hematuria Qualified Code(s): N30.01 - Acute cystitis with hematuria (2) Cellulitis of right leg without foot SNOMED Code(s): 423935073 ICD Code: L03.115 - CELLULITIS OF RIGHT LOWER LIMB Status: Acute Current Visit: Yes (3) Acute kidney injury SNOMED Code(s): 56495279, 72191280 ICD Code: N17.9 - ACUTE KIDNEY FAILURE, UNSPECIFIED Status: Acute Current Visit: Yes (4) Fever SNOMED Code(s): 893276745 ICD Code: R50.9 - FEVER, UNSPECIFIED Status: Acute Current Visit: Yes (5) Sinus tachycardia SNOMED Code(s): 79306904 ICD Code: R00.0 - TACHYCARDIA, UNSPECIFIED Status: Acute Current Visit: Yes (6) Leukocytosis SNOMED Code(s): 589466335, 256042782 ICD Code: D72.829 - ELEVATED WHITE BLOOD CELL COUNT, UNSPECIFIED Status: Acute Current Visit: Yes (7) Acute hypoxemic respiratory failure SNOMED Code(s): 585272355 ICD Code: J96.01 - ACUTE RESPIRATORY FAILURE WITH HYPOXIA Status: Acute Current Visit: Yes (8) Hypertension SNOMED Code(s): 65914671 ICD Code: I10 - ESSENTIAL (PRIMARY) HYPERTENSION Status: Acute Current Visit: Yes (9) Diabetes mellitus SNOMED Code(s): 20021765 ICD Code: E11.9 - TYPE 2 DIABETES MELLITUS WITHOUT COMPLICATIONS Status: Acute Current Visit: Yes (10) Diastolic heart failure SNOMED Code(s): 157262308 ICD Code: I50.30 - UNSPECIFIED DIASTOLIC (CONGESTIVE) HEART FAILURE Status: Acute Current Visit: Yes (11) Dyslipidemia SNOMED Code(s): 782939731 ICD Code: E78.5 - HYPERLIPIDEMIA, UNSPECIFIED Status: Acute Current Visit: Yes (12) Gastroparesis SNOMED Code(s): 826204139 ICD Code: K31.84 - GASTROPARESIS Status: Acute Current Visit: Yes (13) Hypothyroidism SNOMED Code(s): 76165960 ICD Code: E03.9 - HYPOTHYROIDISM, UNSPECIFIED Status: Acute Current Visit: Yes (14) Depression SNOMED Code(s): 61442139 ICD Code: F32.9 - MAJOR DEPRESSIVE DISORDER, SINGLE EPISODE, UNSPECIFIED Status: Acute Current Visit: Yes (15) Dementia SNOMED Code(s): 39867541 ICD Code: F03.90 - UNSPECIFIED DEMENTIA WITHOUT BEHAVIORAL DISTURBANCE Status: Acute Current Visit: Yes Problem List Initiated/Reviewed/Updated: Yes Assessment/Plan Comment:: ASSESSMENT [facility] for fever hypertension nausea vomiting and hypoxemia Vital signs on admission: BP 164/94, heart rate 101, respiratory rate 27, temperature 101, pulse ox 80% Lab results CBC: WBC 15.61 (88% neutrophils without bands), hemoglobin 13.2, hematocrit 42, platelets 233 CMP: Sodium 133, potassium 4.3, chloride 98, CO2 29, BUN 27, creatinine 1.3, GFR 39, glucose 209, calcium 9.3, magnesium 1.8 Lactate 1.8 Troponin 0 0.155, proBNP 740 Liver function tests: Total bili 0.5, a AST 18, ALT 18, alk phos 88, total protein 8.5, albumin 3.8 Urinalysis: Light yellow, 1.0 20, pH 7, +1 protein, +1 leukocyte esterase, +1 ketones and trace blood, negative nitrites, glucose, bilirubin, urobilinogen Micro WBC 50-75, RBC 0-5 Few bacteria Few mucus ABGs: 7.45/36.9/54/25.2/85.1 Was given all her medications this morning Urine and blood culture sent in the emergency department Meets sirs criteria but does not qualify for sepsis as no end organ damage was identified Physical exam: No CVA tenderness Erythematous rash on anterior right lower leg, no purulent drainage, obvious demarcation PLAN UTI (urinary tract infection) Cellulitis of right leg without foot Leukocytosis/Fever/Sinus tachycardia Start piperacillin tazobactam and cefazolin MRSA PCR Follow-up on blood and urine cultures Trend temperature and panculture if temperature greater than 100.1 Intractable nausea and vomiting Acute kidney injury Hyponatremia Start NS PRN Zofran Monitor urine output Renally dose medications Repeat labs in the morning Acute hypoxemic respiratory failure Continue oxygen supplementation via nasal cannula Pulse ox with vital signs Taper down supplementation as tolerated Hypertension Continue home medications once available Diabetes mellitus Gastroparesis Peripheral neuropathy Continue home insulin Hold any p.o. home medications Scheduled Accu-Cheks before meals and 2 hours after New hemoglobin A1c Hypoglycemia protocol Diastolic heart failure Continue home meds Request prior echocardiogram Dyslipidemia Continue home meds Hypothyroidism Continue home meds Dementia Depression Let me sleep protocol Continue home medications Polypharmacy Reconciled medications prior to discharge as per beers criteria PROPHYLAXIS DVT Lovenox GI not indicated CODE STATUS: DNR/DNI DISPOSITION: Patient will be admitted for IV antibiotics and oxygen supplementation as well as IV fluids. SOCIAL: Resident of [facility] - Mortality Measure Prognosis:: Poor
[2019-11-20] MEDS: ceFAZolin 2 GM in Premix Bag 1 BAG IV SCH ×2 (12:27→22:03)
[2019-11-20] MEDS ORDERED: Vancomycin 1 GM, Vancomycin 500 MG in Sodium Chloride 0.9% 500 ML IV ONE (13:00)
[2019-11-20] MEDS: Ipratropium 0.02% 0.5 MG/2.5 ML Neb Soln NEB SCH ×2 (13:47→20:33)
[2019-11-20] MEDS: Acetaminophen 325 MG Tab PO PRN ×2 (16:12→22:39)
[2019-11-20] MEDS ORDERED: Levalbuterol HCl 1.25 MG/3 ML Neb NEB SCH (16:33)
[2019-11-20] MEDS: Budesonide 0.5 MG/2 ML Neb Susp NEB SCH ×2 (16:56→20:33)
[2019-11-20] MEDS: methylPREDNISolone Sodium Succinate 40 MG/1 ML SDV IVPUSH SCH (17:43)
[2019-11-20] MEDS: Lactated Ringers 1,000 ML IV SCH (19:32)
[2019-11-20] MEDS: Enoxaparin 40 MG/0.4 ML Syringe SUBCUT SCH (22:04)
[2019-11-21] MEDS: ceFAZolin 2 GM in Premix Bag 1 BAG IV SCH ×3 (03:54→20:26)
[2019-11-21] MEDS: methylPREDNISolone Sodium Succinate 40 MG/1 ML SDV IVPUSH SCH (03:54)
[2019-11-21] MEDS: Lactated Ringers 1,000 ML IV SCH (03:54)
[2019-11-21] MEDS: Ipratropium 0.02% 0.5 MG/2.5 ML Neb Soln NEB SCH ×3 (05:47→20:53)
[2019-11-21] MEDS: Budesonide 0.5 MG/2 ML Neb Susp NEB SCH ×2 (05:48→20:53)
[2019-11-21] MEDS: Enoxaparin 40 MG/0.4 ML Syringe SUBCUT SCH ×2 (08:54→20:33)
[2019-11-21] MEDS ORDERED: Furosemide 40 MG/4 ML VIAL IVPUSH ONE (08:55)
[2019-11-21] MEDS: Acetaminophen 325 MG Tab PO PRN ×3 (09:40→20:32)
[2019-11-21] MEDS: Menthol/Methyl Salicylate 85 GM Tube TOP PRN ×2 (10:43→20:33)
[2019-11-21] MEDS: guaiFENesin 600 MG Tab.ER PO PRN (12:15)
[2019-11-21] MEDS ORDERED: Insuln Aspart Prot/Insulin Aspart 100 Units/ML 3 ML FlexPen SUBCUT STA (12:30)
[2019-11-21] MEDS ORDERED: Insulin Lispro 100 Units/ML 3 ML Vial SUBCUT ONE (12:42)
--- NOTE | 2019-11-21 18:51 | PCM.PN ---
- General Info Date of Service: 11/21/19 Subjective Update: Tolerating diet Slept through the night Ambulating with assistance - Patient Data Vitals - Most Recent: Last Vital Signs Temp 98.1 F 11/21/19 15:44 Pulse 75 11/21/19 15:44 Resp 20 11/21/19 15:44 BP 177/53 H 11/21/19 15:44 Pulse Ox 95 11/21/19 15:44 Weight - Most Recent: 106.503 kg - Exam General: Alert, Cooperative, No Acute Distress HEENT: Pupils Equal, Pupils Reactive, EOMI, Mucous Membr. Moist/[place] Neck: Supple Lungs: Normal Respiratory Effort, Decreased Breath Sounds, Crackles. No: Rales, Rhonchi, Rub, Stridor, Wheezing Cardiovascular: Regular Rate, Regular Rhythm. No: Murmurs, Gallops, Rubs GI/Abdominal Exam: Normal Bowel Sounds, Soft, Non-Tender, Distended. No: Guarding, Rigid, Rebound Back Exam: No: CVA Tenderness (L), CVA Tenderness (R) Extremities: Pedal Edema, Slow Capillary Refill. No: Non-Tender Peripheral Pulses: 2+: Radial (L), Radial (R), Dorsalis Pedis (L), Dorsalis Pedis (R) Skin: Warm, Dry, Rash (stable). No: Intact Neurological: No New Focal Deficit Psy/Mental Status: Normal Affect, Normal Mood Sepsis Event Note - Evaluation Sepsis Screening Result: No Definite Risk - Problem List & Annotations (1) UTI (urinary tract infection) SNOMED Code(s): 14514148 Code(s): N39.0 - URINARY TRACT INFECTION, SITE NOT SPECIFIED Status: Acute Current Visit: Yes Qualifiers: Urinary tract infection type: acute cystitis Hematuria presence: with hematuria Qualified Code(s): N30.01 - Acute cystitis with hematuria (2) Cellulitis of right leg without foot SNOMED Code(s): 813976679 Code(s): L03.115 - CELLULITIS OF RIGHT LOWER LIMB Status: Acute Current Visit: Yes (3) Acute kidney injury SNOMED Code(s): 24435811, 42811223 Code(s): N17.9 - ACUTE KIDNEY FAILURE, UNSPECIFIED Status: Acute Current Visit: Yes (4) Fever SNOMED Code(s): 149466567 Code(s): R50.9 - FEVER, UNSPECIFIED Status: Acute Current Visit: Yes (5) Sinus tachycardia SNOMED Code(s): 35076585 Code(s): R00.0 - TACHYCARDIA, UNSPECIFIED Status: Acute Current Visit: Yes (6) Leukocytosis SNOMED Code(s): 386138597, 268352475 Code(s): D72.829 - ELEVATED WHITE BLOOD CELL COUNT, UNSPECIFIED Status: Acute Current Visit: Yes (7) Acute hypoxemic respiratory failure SNOMED Code(s): 967098239 Code(s): J96.01 - ACUTE RESPIRATORY FAILURE WITH HYPOXIA Status: Acute Current Visit: Yes (8) Hypertension SNOMED Code(s): 95818296 Code(s): I10 - ESSENTIAL (PRIMARY) HYPERTENSION Status: Acute Current Visit: Yes (9) Diabetes mellitus SNOMED Code(s): 18190792 Code(s): E11.9 - TYPE 2 DIABETES MELLITUS WITHOUT COMPLICATIONS Status: Acute Current Visit: Yes (10) Diastolic heart failure SNOMED Code(s): 315519128 Code(s): I50.30 - UNSPECIFIED DIASTOLIC (CONGESTIVE) HEART FAILURE Status: Acute Current Visit: Yes (11) Dyslipidemia SNOMED Code(s): 391432178 Code(s): E78.5 - HYPERLIPIDEMIA, UNSPECIFIED Status: Acute Current Visit: Yes (12) Gastroparesis SNOMED Code(s): 975028803 Code(s): K31.84 - GASTROPARESIS Status: Acute Current Visit: Yes (13) Hypothyroidism SNOMED Code(s): 57538030 Code(s): E03.9 - HYPOTHYROIDISM, UNSPECIFIED Status: Acute Current Visit: Yes (14) Depression SNOMED Code(s): 00666586 Code(s): F32.9 - MAJOR DEPRESSIVE DISORDER, SINGLE EPISODE, UNSPECIFIED Status: Acute Current Visit: Yes (15) Dementia SNOMED Code(s): 95247343 Code(s): F03.90 - UNSPECIFIED DEMENTIA WITHOUT BEHAVIORAL DISTURBANCE Status: Acute Current Visit: Yes (16) Intractable nausea and vomiting SNOMED Code(s): 952711162 Code(s): R11.2 - NAUSEA WITH VOMITING, UNSPECIFIED Status: Acute Current Visit: Yes (17) Polypharmacy SNOMED Code(s): 677973563 Code(s): Z79.899 - OTHER HALF-WAY (CURRENT) DRUG THERAPY Status: Acute Current Visit: Yes - Problem List Review Problem List Initiated/Reviewed/Updated: Yes - Assessment Assessment:: 11/20/19 [facility] hypertension nausea vomiting and hypoxemia Vital signs on admission: BP 164/94, heart rate 101, respiratory rate 27, temperature 101, pulse ox 80% Lab results CBC: WBC 15.61 (88% neutrophils without bands), hemoglobin 13.2, hematocrit 42, platelets 233 CMP: Sodium 133, potassium 4.3, chloride 98, CO2 29, BUN 27, creatinine 1.3, GFR 39, glucose 209, calcium 9.3, magnesium 1.8 Lactate 1.8 Troponin 0 0.155, proBNP 740 Liver function tests: Total bili 0.5, a AST 18, ALT 18, alk phos 88, total protein 8.5, albumin 3.8 Urinalysis: Light yellow, 1.0 20, pH 7, +1 protein, +1 leukocyte esterase, +1 ketones and trace blood, negative nitrites, glucose, bilirubin, urobilinogen Micro WBC 50-75, RBC 0-5 Few bacteria Few mucus ABGs: 7.45/36.9/54/25.2/85.1 Was given all her medications this morning Urine and blood culture sent in the emergency department Meets sirs criteria but does not qualify for sepsis as no end organ damage was identified Physical exam: No CVA tenderness Erythematous rash on anterior right lower leg, no purulent drainage, obvious demarcation PLAN Start piperacillin tazobactam and cefazolin MRSA PCR Follow-up on blood and urine cultures Trend temperature and panculture if temperature greater than 100.1 Start NS PRN Zofran Monitor urine output Renally dose medications Repeat labs in the morning Continue oxygen supplementation via nasal cannula Pulse ox with vital signs Taper down O2 supplementation as tolerated Continue home medications once available Scheduled Accu-Cheks before meals and 2 hours after New hemoglobin A1c Hypoglycemia protocol Request prior echocardiogram Let me sleep protocol Reconcile medications prior to discharge as per beers criteria Patient will be admitted for IV antibiotics and oxygen supplementation as well as IV fluids. 11/21/19 Vital signs BP: 126-164/50-94 T-max 103 Heart rate 81-94 Pulse ox greater than 90 Dropped oxygenation on exertion, increased NC to 3 L/min at 4:30 PM Lab results WBC 15.61 down to 13.98 Hemoglobin down from 13.2-10.3 Platelets down from 233-268 Sodium up from 133-234 GFR down from 39-36 Glucose trend 172-291 Hemoglobin A1c 6% MRSA PCR negative - Plan Plan:: PLAN UTI (urinary tract infection) Cellulitis of right leg without foot, stable Continue piperacillin tazobactam and cefazolin Follow-up on blood and urine cultures Trend temperature and panculture if temperature greater than 100.1 Intractable nausea and vomiting Acute kidney injury Hyponatremia, improved Discontinue NS PRN Zofran Monitor urine output Renally dose medications Repeat labs in the morning Acute hypoxemic respiratory failure, worsened Lasix 40 mg IV now Continue oxygen supplementation via nasal cannula Pulse ox with vital signs Taper down supplementation as tolerated Hypertension, controlled Continue home medications once available Diabetes mellitus, [id number]% Gastroparesis Peripheral neuropathy Continue home insulin Scheduled Accu-Cheks before meals and 2 hours after Hypoglycemia protocol Diastolic heart failure Continue home meds Request prior echocardiogram Dyslipidemia Continue home meds Hypothyroidism Continue home meds Dementia Depression Let me sleep protocol Continue home medications Polypharmacy Reconcile medications prior to discharge as per beers criteria Leukocytosis/Fever/Sinus tachycardia,, resolved PROPHYLAXIS DVT Lovenox GI not indicated CODE STATUS: DNR/DNI DISPOSITION: Patient will remain admitted for IV antibiotics and oxygen supplementation as well as IV fluids.
[2019-11-21] MEDS ORDERED: hydrALAZINE 20 MG/ML SDV IVPUSH PRN (21:49)
[2019-11-22] MEDS: ceFAZolin 2 GM in Premix Bag 1 BAG IV SCH (03:02)
[2019-11-22] MEDS: guaiFENesin 600 MG Tab.ER PO PRN (03:02)
[2019-11-22] MEDS: Acetaminophen 325 MG Tab PO PRN ×2 (03:02→08:21)
[2019-11-22] MEDS: Budesonide 0.5 MG/2 ML Neb Susp NEB SCH (06:27)
[2019-11-22] MEDS: Ipratropium 0.02% 0.5 MG/2.5 ML Neb Soln NEB SCH ×2 (06:27→13:29)
[2019-11-22] MEDS ORDERED: Insulin Lispro 100 Units/ML 3 ML Vial SUBCUT SCH ×3 (07:30→16:00)
[2019-11-22] MEDS ORDERED: Insulin Glarg,Human.Rec.Analog 100 Unit/ML SUBCUT SCH (08:00)
[2019-11-22] MEDS: Gabapentin 600 MG Tab PO SCH ×2 (08:22→15:52)
[2019-11-22] MEDS: Enoxaparin 40 MG/0.4 ML Syringe SUBCUT SCH (08:29)
[2019-11-22] MEDS ORDERED: amLODIPine 5 MG Tab PO SCH (09:00)
[2019-11-22] MEDS ORDERED: Sertraline 25 MG Tab PO SCH (09:00)
[2019-11-22] MEDS ORDERED: Furosemide 40 MG/4 ML VIAL IVPUSH SCH (09:00)
[2019-11-22] MEDS ORDERED: Sennosides 8.6 MG Tab PO SCH (09:00)
[2019-11-22] MEDS ORDERED: Aspirin 81 MG Tab.Chew PO SCH (09:00)
[2019-11-22] MEDS ORDERED: Insulin Lispro 100 Units/ML 3 ML Vial SUBCUT ONE (10:45)
[2019-11-22] MEDS ORDERED: Cephalexin 500 MG Cap PO SCH (11:00)
--- NOTE | 2019-11-22 12:41 | PCM.PN ---
- General Info Date of Service: 11/22/19 Admission Dx/Problem (Free Text): Admission Diagnosis/Problem Admission Diagnosis/Problem UTI, Urinary tract infectious disease - Patient Data Vitals - Most Recent: Last Vital Signs Temp 98.8 F 11/22/19 11:31 Pulse 98 11/22/19 11:31 Resp 20 11/22/19 11:31 BP 144/79 H 11/22/19 11:31 Pulse Ox 94 L 11/22/19 11:31 Weight - Most Recent: 234 lb 12.8 oz I&O - Last 24 Hours: Intake & Output 11/21/19 11/22/19 11/22/19 22:59 06:59 14:59 Intake Total 1672 450 900 Output Total 464 1575 1030 Balance 1208 -1125 -130 Lab Results Last 24 Hours: Laboratory Results - last 24 hr 11/21/19 11/21/19 11/21/19 Range/Units 14:34 16:45 18:52 WBC (3.98-10.04) K/mm3 RBC (3.98-5.22) M/mm3 Hgb (11.2-15.7) gm/dl Hct (34.1-44.9) % MCV (79.4-94.8) fl MCH (25.6-32.2) pg MCHC (32.2-35.5) g/dl RDW Std Deviation (36.4-46.3) fL Plt Count (182-369) K/mm3 MPV (9.4-12.3) fl Neut % (Auto) (34.0-71.1) % Lymph % (Auto) (19.3-51.7) % Dunn % (Auto) (4.7-12.5) % Eos % (Auto) (0.7-5.8) Baso % (Auto) (0.1-1.2) % Neut # (Auto) (1.56-6.13) K/mm3 Lymph # (Auto) (1.18-3.74) K/mm3 Dunn # (Auto) (0.24-0.36) K/mm3 Eos # (Auto) (0.04-0.36) K/mm3 Baso # (Auto) (0.01-0.08) K/mm3 Manual Slide Review Sodium (136-145) mEq/L Potassium (3.5-5.1) mEq/L Chloride (98-107) mEq/L Carbon Dioxide (21-32) mEq/L Anion Gap (5-15) BUN (7-18) mg/dL Creatinine (0.55-1.02) mg/dL Est Cr Clr Drug Dosing mL/min Estimated GFR (MDRD) (>60) mL/min BUN/Creatinine Ratio (14-18) Glucose (83-115) mg/dL POC Glucose 348 H 256 H 312 H (83-110) mg/dL Calcium (8.5-10.1) mg/dL Phosphorus (2.6-4.7) mg/dL Magnesium (1.8-2.4) mg/dl SARS Virus RNA (PCR) (NEGATIVE) 11/22/19 11/22/19 11/22/19 Range/Units 05:20 05:20 06:11 WBC 16.81 H (3.98-10.04) K/mm3 RBC 3.88 L (3.98-5.22) M/mm3 Hgb 10.5 L (11.2-15.7) gm/dl Hct 33.5 L (34.1-44.9) % MCV 86.3 (79.4-94.8) fl MCH 27.1 (25.6-32.2) pg MCHC 31.3 L (32.2-35.5) g/dl RDW Std Deviation 45.1 (36.4-46.3) fL Plt Count 184 (182-369) K/mm3 MPV 11.9 (9.4-12.3) fl Neut % (Auto) 87.3 H (34.0-71.1) % Lymph % (Auto) 5.8 L (19.3-51.7) % Dunn % (Auto) 6.5 (4.7-12.5) % Eos % (Auto) 0 L (0.7-5.8) Baso % (Auto) 0.1 (0.1-1.2) % Neut # (Auto) 14.68 H (1.56-6.13) K/mm3 Lymph # (Auto) 0.97 L (1.18-3.74) K/mm3 Dunn # (Auto) 1.10 H (0.24-0.36) K/mm3 Eos # (Auto) 0.00 L (0.04-0.36) K/mm3 Baso # (Auto) 0.01 (0.01-0.08) K/mm3 Manual Slide Review Abnormal smear Sodium 135 L (136-145) mEq/L Potassium 3.9 (3.5-5.1) mEq/L Chloride 99 (98-107) mEq/L Carbon Dioxide 27 (21-32) mEq/L Anion Gap 12.9 (5-15) BUN 39 H (7-18) mg/dL Creatinine 1.4 H (0.55-1.02) mg/dL Est Cr Clr Drug Dosing 25.19 mL/min Estimated GFR (MDRD) 36 (>60) mL/min BUN/Creatinine Ratio 27.9 H (14-18) Glucose 309 H (83-115) mg/dL POC Glucose 290 H (83-110) mg/dL Calcium 8.7 (8.5-10.1) mg/dL Phosphorus 2.8 (2.6-4.7) mg/dL Magnesium 1.8 (1.8-2.4) mg/dl SARS Virus RNA (PCR) (NEGATIVE) 11/22/19 11/22/19 11/22/19 Range/Units 09:43 11:00 11:47 WBC (3.98-10.04) K/mm3 RBC (3.98-5.22) M/mm3 Hgb (11.2-15.7) gm/dl Hct (34.1-44.9) % MCV (79.4-94.8) fl MCH (25.6-32.2) pg MCHC (32.2-35.5) g/dl RDW Std Deviation (36.4-46.3) fL Plt Count (182-369) K/mm3 MPV (9.4-12.3) fl Neut % (Auto) (34.0-71.1) % Lymph % (Auto) (19.3-51.7) % Dunn % (Auto) (4.7-12.5) % Eos % (Auto) (0.7-5.8) Baso % (Auto) (0.1-1.2) % Neut # (Auto) (1.56-6.13) K/mm3 Lymph # (Auto) (1.18-3.74) K/mm3 Dunn # (Auto) (0.24-0.36) K/mm3 Eos # (Auto) (0.04-0.36) K/mm3 Baso # (Auto) (0.01-0.08) K/mm3 Manual Slide Review Sodium (136-145) mEq/L Potassium (3.5-5.1) mEq/L Chloride (98-107) mEq/L Carbon Dioxide (21-32) mEq/L Anion Gap (5-15) BUN (7-18) mg/dL Creatinine (0.55-1.02) mg/dL Est Cr Clr Drug Dosing mL/min Estimated GFR (MDRD) (>60) mL/min BUN/Creatinine Ratio (14-18) Glucose 396 H (83-115) mg/dL POC Glucose 222 H (83-110) mg/dL Calcium (8.5-10.1) mg/dL Phosphorus (2.6-4.7) mg/dL Magnesium (1.8-2.4) mg/dl SARS Virus RNA (PCR) Negative (NEGATIVE) [facility]ides Results Last 24 Hours: Microbiology 11/20/19 09:15 Urine Culture - Final Urine, Clean Catch Escherichia Coli 11/20/19 09:40 Aerobic Blood Culture - Preliminary Blood - Venous - Lab Draw NO GROWTH AFTER 2 DAYS Anaerobic Blood Culture - Final 11/20/19 09:20 Aerobic Blood Culture - Preliminary Blood - Venous NO GROWTH AFTER 2 DAYS Anaerobic Blood Culture - Preliminary NO GROWTH AFTER 2 DAYS Med Orders - Current: Current Medications Acetaminophen (Tylenol) 325 mg PO Q4H PRN PRN Reason: Pain (Mild 1-3)/fever Last Admin: 11/22/19 08:21 Dose: 325 mg Documented by: Amlodipine Besylate (Norvasc) 7.5 mg PO DAILY [facility] Last Admin: 11/22/19 08:22 Dose: 7.5 mg Documented by: Aspirin (Aspirin) 81 mg PO DAILY [facility] Last Admin: 11/22/19 08:21 Dose: 81 mg Documented by: Budesonide (Pulmicort) 0.5 mg NEB BIDRT [facility] Last Admin: 11/22/19 06:27 Dose: 0.5 mg Documented by: Cephalexin (Keflex) 500 mg PO BID [facility] Last Admin: 11/22/19 11:07 Dose: 500 mg Documented by: Dextrose/Water (Dextrose 50% In Water) 50 ml IVPUSH ASDIRECTED PRN PRN Reason: Hypoglycemia Enoxaparin Sodium (Lovenox) 40 mg SUBCUT BID [facility] Last Admin: 11/22/19 08:29 Dose: 40 mg Documented by: Furosemide (Lasix) 80 mg IVPUSH DAILY [facility] Last Admin: 11/22/19 08:31 Dose: 80 mg Documented by: Gabapentin (Neurontin) 600 mg PO TID [facility] Last Admin: 11/22/19 08:22 Dose: 600 mg Documented by: Guaifenesin (Mucinex) 600 mg PO BID PRN PRN Reason: Cough Last Admin: 11/22/19 03:02 Dose: 600 mg Documented by: Hydralazine HCl (Apresoline) 10 mg IVPUSH Q2H PRN PRN Reason: Hypertension Insulin Glargine (Lantus) 60 unit SUBCUT QAM [facility] Last Admin: 11/22/19 08:28 Dose: 60 units Documented by: Insulin Human Lispro (Humalog) 12 unit SUBCUT ACLUNCH [facility] Last Admin: 11/22/19 10:46 Dose: Not Given Documented by: Insulin Human Lispro (Humalog) 14 unit SUBCUT ACDINNER [facility] Insulin Human Lispro (Humalog) 18 unit SUBCUT ACBREAKFAST [facility] Last Admin: 11/22/19 08:26 Dose: 18 units Documented by: Ipratropium [place] (Atrovent) 0.5 mg NEB Q8HRRT [facility] Last Admin: 11/22/19 06:27 Dose: 0.5 mg Documented by: Lisinopril (Prinivil) 20 mg PO BEDTIME [facility] Methyl Salicylate (Icy Hot Cream) 0 gm TOP Q2HR PRN PRN Reason: Pain (mild 1-3) Last Admin: 11/21/19 20:33 Dose: 1 applic Documented by: Ondansetron HCl (Zofran) 4 mg IV Q6H PRN PRN Reason: Nausea/Vomiting Pramipexole Dihydrochloride (Mirapex) 0.25 mg PO BEDTIME [facility] Senna (Senna) 8.6 mg PO DAILY [facility] Last Admin: 11/22/19 08:22 Dose: 8.6 mg Documented by: Sertraline HCl (Zoloft) 100 mg PO DAILY [facility] Last Admin: 11/22/19 08:22 Dose: 100 mg Documented by: Discontinued Medications Furosemide (Lasix) 40 mg IVPUSH NOW ONE Stop: 11/21/19 08:56 Last Admin: 11/21/19 09:41 Dose: 40 mg Documented by: Hydralazine HCl (Apresoline) 10 mg IVPUSH Q2H PRN PRN Reason: Hypertension Lactated Ringer's (Ringers, Lactated) 1,000 mls @ 999 mls/hr IV .BOLUS ONE Stop: 11/20/19 10:34 Last Admin: 11/20/19 09:42 Dose: 999 mls/hr Documented by: Lactated Ringer's (Ringers, Lactated) 500 mls @ 999 mls/hr IV .BOLUS ONE Stop: 11/20/19 11:26 Last Admin: 11/20/19 11:01 Dose: 999 mls/hr Documented by: Lactated Ringer's (Ringers, Lactated) 1,000 mls @ 150 mls/hr IV ASDIRECTED [facility] Last Admin: 11/21/19 03:54 Dose: 150 mls/hr Documented by: Piperacillin Sod/Tazobactam (Sod 4.5 gm/ Sodium Chloride) 100 mls @ 200 mls/hr IV ONETIME ONE Stop: 11/20/19 11:37 Last Admin: 11/20/19 11:23 Dose: 200 mls/hr Documented by: Vancomycin HCl 1 gm/Vancomycin HCl 500 mg/ Sodium Chloride 500 mls @ 250 mls/hr IV ONETIME ONE Stop: 11/20/19 14:59 Last Admin: 11/20/19 13:07 Dose: 250 mls/hr Documented by: Vancomycin HCl 1 gm/ Sodium (Chloride) 250 mls @ 250 mls/hr IV Q24H [facility] Cefazolin Sodium/Dextrose 2 gm (/ Premix) 50 mls @ 100 mls/hr IV Q8H [facility] Last Admin: 11/22/19 03:02 Dose: 100 mls/hr Documented by: Insulin Aspart (Novolog Mix 70-30) 12 unit SUBCUT STAT STA Stop: 11/21/19 12:31 Last Admin: 11/21/19 12:45 Dose: Not Given Documented by: Insulin Aspart (Novolog) 18 unit SUBCUT ACBREAKFAST [facility] Last Admin: 11/22/19 08:28 Dose: Not Given Documented by: Insulin Human Lispro (Humalog) 12 unit SUBCUT ONETIME ONE Stop: 11/21/19 12:43 Last Admin: 11/21/19 12:55 Dose: 12 units Documented by: Insulin Human Lispro (Humalog) 10 unit SUBCUT ONETIME ONE Stop: 11/22/19 10:46 Last Admin: 11/22/19 11:10 Dose: 10 units Documented by: Levalbuterol HCl (Xopenex) 1.25 mg NEB Q8HRRT [facility] Last Admin: 11/20/19 18:47 Dose: Not Given Documented by: Methylprednisolone Sodium Succinate (Solu-Medrol) 40 mg IVPUSH Q12H [facility] Stop: 11/21/19 04:46 Last Admin: 11/21/19 03:54 Dose: 40 mg Documented by: Ondansetron HCl (Zofran) 4 mg IVPUSH ONETIME ONE Stop: 11/20/19 10:08 Last Admin: 11/20/19 10:22 Dose: 4 mg Documented by: Vancomycin HCl (Pharmacy To Dose - Vancomycin) 1 dose .XX ONETIME PRN PRN Reason: RX TO DOSE VANCO Sepsis Event Note - Evaluation Sepsis Screening Result: No Definite Risk - Focused Exam Vital Signs: Vital Signs Temp Temp Pulse Pulse Resp BP BP 11/22/19 11:31 98.8 F 98 20 144/79 H 11/22/19 08:28 85 11/22/19 08:22 176/96 H 11/22/19 08:04 97.9 F 83 20 176/96 H 11/22/19 06:27 11/22/19 03:29 99.8 F 89 89 21 H 147/61 H 11/22/19 00:44 98.2 F 88 18 145/76 H Pulse Ox Pulse Ox 11/22/19 11:31 94 L 11/22/19 08:28 90 L 11/22/19 08:22 11/22/19 08:04 11/22/19 06:27 90 L 11/22/19 03:29 97 11/22/19 00:44 93 L - Assessment Assessment:: 11/20/19 [facility] nausea vomiting and hypoxemia Vital signs on admission: BP 164/94, heart rate 101, respiratory rate 27, temperature 101, pulse ox 80% Lab results CBC: WBC 15.61 (88% neutrophils without bands), hemoglobin 13.2, hematocrit 42, platelets 233 CMP: Sodium 133, potassium 4.3, chloride 98, CO2 29, BUN 27, creatinine 1.3, GFR 39, glucose 209, calcium 9.3, magnesium 1.8 Lactate 1.8 Troponin 0 0.155, proBNP 740 Liver function tests: Total bili 0.5, a AST 18, ALT 18, alk phos 88, total protein 8.5, albumin 3.8 Urinalysis: Light yellow, 1.0 20, pH 7, +1 protein, +1 leukocyte esterase, +1 ketones and trace blood, negative nitrites, glucose, bilirubin, urobilinogen Micro WBC 50-75, RBC 0-5 Few bacteria Few mucus ABGs: 7.45/36.9/54/25.2/85.1 Was given all her medications this morning Urine and blood culture sent in the emergency department Meets sirs criteria but does not qualify for sepsis as no end organ damage was identified Physical exam: No CVA tenderness Erythematous rash on anterior right lower leg, no purulent drainage, obvious demarcation PLAN Start piperacillin tazobactam and cefazolin MRSA PCR Follow-up on blood and urine cultures Trend temperature and panculture if temperature greater than 100.1 Start NS PRN Zofran Monitor urine output Renally dose medications Repeat labs in the morning Continue oxygen supplementation via nasal cannula Pulse ox with vital signs Taper down O2 supplementation as tolerated Continue home medications once available Scheduled Accu-Cheks before meals and 2 hours after New hemoglobin A1c Hypoglycemia protocol Request prior echocardiogram Let ok sleep protocol Reconcile medications prior to discharge as per beers criteria Patient will be admitted for IV antibiotics and oxygen supplementation as well as IV fluids. 11/21/19 Vital signs BP: 126-164/50-94 T-max 103 Heart rate 81-94 Pulse ox greater than 90 Dropped oxygenation on exertion, increased NC to 3 L/min at 4:30 PM Lab results WBC 15.61 down to 13.98 Hemoglobin down from 13.2-10.3 Platelets down from 233-268 Sodium up from 133-234 GFR down from 39-36 Glucose trend 172-291 Hemoglobin A1c 6% MRSA PCR negative - Plan Plan:: PLAN UTI (urinary tract infection) Cellulitis of right leg without foot, stable Continue piperacillin tazobactam and cefazolin Follow-up on blood and urine cultures Trend temperature and panculture if temperature greater than 100.1 Intractable nausea and vomiting Acute kidney injury Hyponatremia, improved Discontinue NS PRN Zofran Monitor urine output Renally dose medications Repeat labs in the morning Acute hypoxemic respiratory failure, worsened Lasix 40 mg IV now Continue oxygen supplementation via nasal cannula Pulse ox with vital signs Taper down supplementation as tolerated Hypertension, controlled Continue home medications once available Diabetes mellitus, [id number]% Gastroparesis Peripheral neuropathy Continue home insulin Scheduled Accu-Cheks before meals and 2 hours after Hypoglycemia protocol Diastolic heart failure Continue home meds Request prior echocardiogram Dyslipidemia Continue home meds Hypothyroidism Continue home meds Dementia Depression Let me sleep protocol Continue home medications Polypharmacy Reconcile medications prior to discharge as per beers criteria Leukocytosis/Fever/Sinus tachycardia,, resolved PROPHYLAXIS DVT Lovenox GI not indicated CODE STATUS: DNR/DNI DISPOSITION: Patient will remain admitted for IV antibiotics and oxygen supplementation as well as IV fluids.
[2019-11-22] MEDS ORDERED: Diltiazem 50 MG/10 ML SDV IVPUSH STA (13:35)
[2019-11-22 14:52] VITALS: PULSE 145
--- NOTE | 2019-11-22 15:32 | CR ---
Chest: PA and lateral views of the chest were obtained. Comparison: Prior chest x-ray of 11/20/19. Increased density within the left mid and lower lung is seen most likely representing pneumonia. Small left-sided pleural effusion which may represent a small parapneumonic effusion. Heart at the upper limits of normal in size. Scattered degenerative change is noted throughout the spine. Impression: 1. Increased density left mid and lower lung most likely representing pneumonia. 2. Small left-sided parapneumonic effusion. 3. Heart size at the upper limits of normal. Other findings believed to be nonacute and incidental. Diagnostic code #3 Study was dictated in [facility]
[2019-11-22] MEDS ORDERED: Heparin Sodium 5,000 Units/ML Vial IVPUSH ONE (15:45)
[2019-11-22] MEDS ORDERED: Heparin Sodium/D5W 25,000 UNITS/500 ML BAG IV SCH (15:45)
[2019-11-22] MEDS ORDERED: Diltiazem 100 MG in Sodium Chloride 0.9% 100 ML IV SCH (15:45)
--- NOTE | 2019-11-22 16:16 | PCM.DCSUM1 ---
Discharge Summary - Hospital Course HPI Initial Comments: Information obtained by chart review due to patient's cognitive status This is an 84-year-old male with past medical history of diabetes, hypertension and dementia who is brought to the ED via private car sent by [facility] for high blood pressure, vomiting bile, fever and pallor. As per [facility] staff patient was fine yesterday with usual complaints. Found to be hypertensive after vomiting episode and pulse ox dropped to 81%, nadia cribed as looking pale and shaky. Glucose 180 with repeat 250 Diagnosis: Stroke: No - Discharge Data Discharge Date: 11/22/19 (Admit date: 11/20/19) Discharge Disposition: DC/Tfer to [facility] 02 Condition: Stable - Referral to Home Health Primary Care Physician: Anisa York MD - Discharge Diagnosis/Problem(s) (1) Hyponatremia SNOMED Code(s): 91821619 ICD Code: E87.1 - HYPO-OSMOLALITY AND HYPONATREMIA Status: Chronic Priority: High Current Visit: Yes (2) Peripheral neuropathy SNOMED Code(s): 097868316 ICD Code: G62.9 - POLYNEUROPATHY, UNSPECIFIED Status: Chronic Priority: Medium Current Visit: No Qualifiers: Peripheral neuropathy type: polyneuropathy, unspecified Qualified Code(s): G62.9 - Polyneuropathy, unspecified (3) Atrial fibrillation with RVR SNOMED Code(s): 173095027180814 ICD Code: I48.91 - UNSPECIFIED ATRIAL FIBRILLATION Status: Acute Priority: High Current Visit: Yes (4) Non-STEMI (non-ST elevated myocardial infarction) SNOMED Code(s): 48468226 ICD Code: I21.4 - NON-ST ELEVATION (NSTEMI) MYOCARDIAL INFARCTION Status: Acute Priority: High Current Visit: Yes (5) Elevated troponin SNOMED Code(s): 561964612, 093985706, 041494198 ICD Code: R79.89 - OTHER SPECIFIED ABNORMAL FINDINGS OF BLOOD CHEMISTRY Status: Acute Priority: High Current Visit: Yes (6) Acute hypoxemic respiratory failure SNOMED Code(s): 296570473 ICD Code: J96.01 - ACUTE RESPIRATORY FAILURE WITH HYPOXIA Status: Acute Priority: High Current Visit: Yes (7) Acute kidney injury SNOMED Code(s): 17585456, 80411839 ICD Code: N17.9 - ACUTE KIDNEY FAILURE, UNSPECIFIED Status: Acute Priority: High Current Visit: Yes (8) Cellulitis of right leg without foot SNOMED Code(s): 274259919 ICD Code: L03.115 - CELLULITIS OF RIGHT LOWER LIMB Status: Acute Priority: High Current Visit: Yes (9) Dementia SNOMED Code(s): 14977196 ICD Code: F03.90 - UNSPECIFIED DEMENTIA WITHOUT BEHAVIORAL DISTURBANCE Status: Chronic Priority: Medium Current Visit: Yes Qualifiers: Dementia type: Alzheimer's disease Alzheimer's disease onset: unspecified onset Dementia behavioral disturbance: without behavioral disturbance Qualified Code(s): G30.9 - Alzheimer's disease, unspecified; F02.80 - Dementia in other diseases classified elsewhere without behavioral disturbance (10) Depression SNOMED Code(s): 76334871 ICD Code: F32.9 - MAJOR DEPRESSIVE DISORDER, SINGLE EPISODE, UNSPECIFIED Status: Chronic Priority: Low Current Visit: No Qualifiers: Depression Type: other depression Qualified Code(s): F32.89 - Other s pecified depressive episodes (11) Diabetes mellitus SNOMED Code(s): 64606395 ICD Code: E11.9 - TYPE 2 DIABETES MELLITUS WITHOUT COMPLICATIONS Status: Chronic Priority: Medium Current Visit: Yes Qualifiers: Diabetes mellitus type: type 2 Diabetes mellitus buttermaker insulin use: with fpc use Diabetes mellitus complication status: with other specified complication Qualified Code(s): E11.69 - Type 2 diabetes mellitus with other specified complication; Z79.4 - terminal carman (current) use of insulin (12) Diastolic heart failure SNOMED Code(s): 153435868 ICD Code: I50.30 - UNSPECIFIED DIASTOLIC (CONGESTIVE) HEART FAILURE Status: Chronic Priority: Medium Current Visit: Yes Qualifiers: Heart failure chronicity: unspecified Qualified Code(s): I50.30 - Unspecified diastolic (congestive) heart failure (13) Dyslipidemia SNOMED Code(s): 705928080 ICD Code: E78.5 - HYPERLIPIDEMIA, UNSPECIFIED Status: Chronic Priority: Low Current Visit: No (14) Fever SNOMED Code(s): 591218438 ICD Code: R50.9 - FEVER, UNSPECIFIED Status: Resolved Priority: High Current Visit: Yes (15) Gastroparesis SNOMED Code(s): 480227666 ICD Code: K31.84 - GASTROPARESIS Status: Chronic Priority: Medium Current Visit: No (16) Hypertension SNOMED Code(s): 37128125 ICD Code: I10 - ESSENTIAL (PRIMARY) HYPERTENSION Status: Chronic Priority: Medium Current Visit: No Qualifiers: Hypertension type: unspecified Qualified Code(s): I10 - Essential (primary) hypertension (17) Hypothyroidism SNOMED Code(s): 58240209 ICD Code: E03.9 - HYPOTHYROIDISM, UNSPECIFIED Status: Chronic Priority: Low Current Visit: No Qualifiers: Hypothyroidism type: unspecified Qualified Code(s): E03.9 - Hypothyroidism, unspecified (18) Intractable nausea and vomiting SNOMED Code(s): 108547563 ICD Code: R11.2 - NAUSEA WITH VOMITING, UNSPECIFIED Status: Resolved Priority: High Current Visit: Yes (19) Leukocytosis SNOMED Code(s): 238869474, 021724777 ICD Code: D72.829 - ELEVATED WHITE BLOOD CELL COUNT, UNSPECIFIED Status: Acute Priority: High Current Visit: Yes Qualifiers: Leukocytosis type: unspecified Qualified Code(s): D72.829 - Elevated white blood cell count, unspecified (20) Polypharmacy SNOMED Code(s): 860762217 ICD Code: Z79.899 - OTHER PRISON (CURRENT) DRUG THERAPY Status: Chronic Priority: Medium Current Visit: Yes (21) UTI (urinary tract infection) SNOMED Code(s): 13875423 ICD Code: N39.0 - URINARY TRACT INFECTION, SITE NOT SPECIFIED Status: Acute Priority: High Current Visit: Yes Qualifiers: Urinary tract infection type: acute cystitis Hematuria presence: with hematuria Qualified Code(s): N30.01 - Acute cystitis with hematuria - Patient Summary/Data Consults: Consultations 11/20/19 11:25 OT Evaluation and Treatment [CONS] Routine PT Evaluation and Treatment [CONS] Routine Labs Pending at D/C: aPTT and TSH obtained and pending . Hospital Course: Tabitha was admitted to the floor due to intractable nausea and vomiting with hypoxemia. She initially noted to have an elevated WBC of 15.61. Lactate was 1.8 and troponin was 0.155. proBNP was 740. UA showed 1+ leukocyte esterase 5075 WBCs and few bacteria. Urine and blood cultures were sent in the ED and although blood cultures were negative urine cultures revealed pansensitive E. coli. She was noted to meet Sirs criteria but not sepsis. She was started on cefazolin and Zosyn. She was requiring oxygen. He was noted to have a temperature of 103 and a pulse ox that would drop with exertion. Oxygen was therefore turned up to 3 L. WBC did trend down to 13.98. Sodium was stable. Hemoglobin A1c was obtained was 6.0. MRSA screen was negative. Unfortunately her oxygen demand continue to increase. Repeat chest x-ray was obtained and showed a possible pneumonia in the left lower and midlung. She had been switched to p.o. antibiotics earlier in the day. Her white count did also increase to 16.81. Blood sugars have been in the 2-300s. Today nursing noticed that the patient had a heart rate in the 140s. Twelve-lead EKG was obtained showing A. fib with RVR. Patient does not have a history of A. fib. Patient was given a 5 mg dose of diltiazem with minimal response. Troponin was obtained and was 2.533. [place] [phone] call was contacted and report was given to Dr. Butler, melvin with [facility] who recommended starting the patient on diltiazem drip and also starting a heparin drip. Report was then given to Dr. Colon, hospitalist, with [facility] who accepted patient care. Patient will be transferred via ground ambulance. aPTT and TSH were obtained prior to transport. Patient's daughter was contacted and she did agree to the transport. - Patient Instructions Diet: Heart Healthy Diet, Diabetic Diet - Discharge Plan *PRESCRIPTION DRUG MONITORING PROGRAM REVIEWED*: No *COPY OF PRESCRIPTION DRUG MONITORING REPORT IN PATIENT ROCHELLE: No Home Medications: Home Meds Furosemide [Lasix] 80 mg PO DAILY 03/31/17 [History] Insulin Aspart [Novolog Flexpen] 18 injection SUBCUT ACBREAKFAST 03/31/17 [History] Insulin Detemir [Levemir Flextouch] 60 units SUBCUT QAM 03/31/17 [History] Levothyroxine [Levothroid] 137 mcg PO DAILY 03/31/17 [History] Sertraline [Zoloft] 100 mg PO DAILY 03/31/17 [History] amLODIPine [Norvasc] 7.5 mg PO DAILY 03/31/17 [History] lisinopriL [Zestril] 20 mg PO BID 03/31/17 [History] metFORMIN [Glucophage] 500 mg PO DAILY 03/31/17 [History] Acetaminophen [Acetaminophen Extra Strength] 650 mg PO BID 11/08/17 [History] Aspirin 81 mg PO DAILY 11/08/17 [History] Gabapentin [Neurontin] 600 mg PO TID 11/08/17 [History] Insulin Aspart [NovoLOG] 12 units SQ ACLUNCH 11/08/17 [History] Insulin Aspart [NovoLOG] 14 units SQ ACDINNER 11/08/17 [History] Magnesium Oxide 400 mg PO BID 11/08/17 [History] Potassium Chloride 10 meq PO DAILY 11/08/17 [History] Pramipexole Di-HCl [Mirapex] 0.25 mg PO BEDTIME 11/08/17 [History] Sennosides [Senna] 8.6 mg PO DAILY 11/08/17 [History] Dicyclomine [Bentyl] 20 mg PO Q6H PRN #20 tablet 11/09/17 [Rx] Acetaminophen [Tylenol] 650 mg PO Q6HR PRN 11/20/19 [History] Cyanocobalamin (Vitamin B12) [Vitamin B13] 500 mcg PO DAILY 11/20/19 [History] Omeprazole 20 mg PO DAILY 11/20/19 [History] Oxygen Therapy Mode: Nasal Cannula Oxygen Flow Rate (L/min): 4 Patient Handouts: Heart Failure, Self Care, Heart Failure Action Plan, Heart- Healthy Eating Plan Referrals: Anisa York MD [Primary Care Provider] - - Discharge Summary/Plan Comment DC Time >30 min.: Yes (60 minutes ) - General Info Date of Service: 11/22/19 Functional Status: Reports: Pain Controlled, Tolerating Diet, Ambulating, Urinating - Review of Systems General: Reports: No Symptoms. Denies: Fever, Weakness, Fatigue, Malaise, Chil ls HEENT: Reports: No Symptoms. Denies: Headaches, Sore Throat Pulmonary: Reports: No Symptoms. Denies: Shortness of Breath, Cough, Hemoptysis Cardiovascular: Reports: No Symptoms. Denies: Chest Pain, Palpitations, Dyspnea on Exertion, Edema Gastrointestinal: Reports: No Symptoms. Denies: Abdominal Pain, Constipation, Difficulty Swallowing Genitourinary: Reports: No Symptoms. Denies: Pain Musculoskeletal: Reports: No Symptoms Skin: Reports: No Symptoms. Denies: Cyanosis Neurological: Reports: Confusion (Baseline ) Psychiatric: Reports: No Symptoms - Patient Data Vitals - Most Recent: Last Vital Signs Temp 98.4 F 11/22/19 16:11 Pulse 145 H 11/22/19 13:12 Resp 18 11/22/19 16:11 BP 153/94 H 11/22/19 16:11 Pulse Ox 96 11/22/19 16:11 Weight - Most Recent: 234 lb 12.8 oz I&O - Last 24 hours: Intake & Output 11/22/19 11/22/19 11/22/19 06:59 14:59 22:59 Intake Total 450 950 Output Total 1575 1230 Balance -1125 -280 Lab Results - Last 24 hrs: Laboratory Results - last 24 hr 11/21/19 11/21/19 11/22/19 Range/Units 16:45 18:52 05:20 WBC 16.81 H (3.98-10.04) K/mm3 RBC 3.88 L (3.98-5.22) M/mm3 Hgb 10.5 L (11.2-15.7) gm/dl Hct 33.5 L (34.1-44.9) % MCV 86.3 (79.4-94.8) fl MCH 27.1 (25.6-32.2) pg MCHC 31.3 L (32.2-35.5) g/dl RDW Std Deviation 45.1 (36.4-46.3) fL Plt Count 184 (182-369) K/mm3 MPV 11.9 (9.4-12.3) fl Neut % (Auto) 87.3 H (34.0-71.1) % Lymph % (Auto) 5.8 L (19.3-51.7) % [place] % (Auto) 6.5 (4.7-12.5) % Eos % (Auto) 0 L (0.7-5.8) Baso % (Auto) 0.1 (0.1-1.2) % Neut # (Auto) 14.68 H (1.56-6.13) K/mm3 Lymph # (Auto) 0.97 L (1.18-3.74) K/mm3 [place] # (Auto) 1.10 H (0.24-0.36) K/mm3 Eos # (Auto) 0.00 L (0.04-0.36) K/mm3 Baso # (Auto) 0.01 (0.01-0.08) K/mm3 Manual Slide Review Abnormal smear Sodium (136-145) mEq/L Potassium (3.5-5.1) mEq/L Chloride (98-107) mEq/L Carbon Dioxide (21-32) mEq/L Anion Gap (5-15) BUN (7-18) mg/dL Creatinine (0.55-1.02) mg/dL Est Cr Clr Drug Dosing mL/min Estimated GFR (MDRD) (>60) mL/min BUN/Creatinine Ratio (14-18) Glucose (83-115) mg/dL POC Glucose 256 H 312 H (83-110) mg/dL Calcium (8.5-10.1) mg/dL Phosphorus (2.6-4.7) mg/dL Magnesium (1.8-2.4) mg/dl Troponin I (0.00-0.056) ng/mL SARS Virus RNA (PCR) (NEGATIVE) 11/22/19 11/22/19 11/22/19 Range/Units 05:20 06:11 09:43 WBC (3.98-10.04) K/mm3 RBC (3.98-5.22) M/mm3 Hgb (11.2-15.7) gm/dl Hct (34.1-44.9) % MCV (79.4-94.8) fl MCH (25.6-32.2) pg MCHC (32.2-35.5) g/dl RDW Std Deviation (36.4-46.3) fL Plt Count (182-369) K/mm3 MPV (9.4-12.3) fl Neut % (Auto) (34.0-71.1) % Lymph % (Auto) (19.3-51.7) % [place] % (Auto) (4.7-12.5) % Eos % (Auto) (0.7-5.8) Baso % (Auto) (0.1-1.2) % Neut # (Auto) (1.56-6.13) K/mm3 Lymph # (Auto) (1.18-3.74) K/mm3 [place] # (Auto) (0.24-0.36) K/mm3 Eos # (Auto) (0.04-0.36) K/mm3 Baso # (Auto) (0.01-0.08) K/mm3 Manual Slide Review Sodium 135 L (136-145) mEq/L Potassium 3.9 (3.5-5.1) mEq/L Chloride 99 (98-107) mEq/L Carbon Dioxide 27 (21-32) mEq/L Anion Gap 12.9 (5-15) BUN 39 H (7-18) mg/dL Creatinine 1.4 H (0.55-1.02) mg/dL Est Cr Clr Drug Dosing 25.19 mL/min Estimated GFR (MDRD) 36 (>60) mL/min BUN/Creatinine Ratio 27.9 H (14-18) Glucose 309 H 396 H (83-115) mg/dL POC Glucose 290 H (83-110) mg/dL Calcium 8.7 (8.5-10.1) mg/dL Phosphorus 2.8 (2.6-4.7) mg/dL Magnesium 1.8 (1.8-2.4) mg/dl Troponin I (0.00-0.056) ng/mL SARS Virus RNA (PCR) (NEGATIVE) 11/22/19 11/22/19 11/22/19 Range/Units 11:00 11:47 13:19 WBC (3.98-10.04) K/mm3 RBC (3.98-5.22) M/mm3 Hgb (11.2-15.7) gm/dl Hct (34.1-44.9) % MCV (79.4-94.8) fl MCH (25.6-32.2) pg MCHC (32.2-35.5) g/dl RDW Std Deviation (36.4-46.3) fL Plt Count (182-369) K/mm3 MPV (9.4-12.3) fl Neut % (Auto) (34.0-71.1) % Lymph % (Auto) (19.3-51.7) % [place] % (Auto) (4.7-12.5) % Eos % (Auto) (0.7-5.8) Baso % (Auto) (0.1-1.2) % Neut # (Auto) (1.56-6.13) K/mm3 Lymph # (Auto) (1.18-3.74) K/mm3 [place] # (Auto) (0.24-0.36) K/mm3 Eos # (Auto) (0.04-0.36) K/mm3 Baso # (Auto) (0.01-0.08) K/mm3 Manual Slide Review Sodium (136-145) mEq/L Potassium (3.5-5.1) mEq/L Chloride (98-107) mEq/L Carbon Dioxide (21-32) mEq/L Anion Gap (5-15) BUN (7-18) mg/dL Creatinine (0.55-1.02) mg/dL Est Cr Clr Drug Dosing mL/min Estimated GFR (MDRD) (>60) mL/min BUN/Creatinine Ratio (14-18) Glucose (83-115) mg/dL POC Glucose 222 H (83-110) mg/dL Calcium (8.5-10.1) mg/dL Phosphorus (2.6-4.7) mg/dL Magnesium (1.8-2.4) mg/dl Troponin I 2.533 H* (0.00-0.056) ng/mL SARS Virus RNA (PCR) Negative (NEGATIVE) 11/22/19 Range/Units 15:58 WBC (3.98-10.04) K/mm3 RBC (3.98-5.22) M/mm3 Hgb (11.2-15.7) gm/dl Hct (34.1-44.9) % MCV (79.4-94.8) fl MCH (25.6-32.2) pg MCHC (32.2-35.5) g/dl RDW Std Deviation (36.4-46.3) fL Plt Count (182-369) K/mm3 MPV (9.4-12.3) fl Neut % (Auto) (34.0-71.1) % Lymph % (Auto) (19.3-51.7) % [place] % (Auto) (4.7-12.5) % Eos % (Auto) (0.7-5.8) Baso % (Auto) (0.1-1.2) % Neut # (Auto) (1.56-6.13) K/mm3 Lymph # (Auto) (1.18-3.74) K/mm3 [place] # (Auto) (0.24-0.36) K/mm3 Eos # (Auto) (0.04-0.36) K/mm3 Baso # (Auto) (0.01-0.08) K/mm3 Manual Slide Review Sodium (136-145) mEq/L Potassium (3.5-5.1) mEq/L Chloride (98-107) mEq/L Carbon Dioxide (21-32) mEq/L Anion Gap (5-15) BUN (7-18) mg/dL Creatinine (0.55-1.02) mg/dL Est Cr Clr Drug Dosing mL/min Estimated GFR (MDRD) (>60) mL/min BUN/Creatinine Ratio (14-18) Glucose (83-115) mg/dL POC Glucose 191 H (83-110) mg/dL Calcium (8.5-10.1) mg/dL Phosphorus (2.6-4.7) mg/dL Magnesium (1.8-2.4) mg/dl Troponin I (0.00-0.056) ng/mL SARS Virus RNA (PCR) (NEGATIVE) TEX Results - Last 24 hrs: Microbiology 11/20/19 09:15 Urine Culture - Final Urine, Clean Catch Escherichia Coli 11/20/19 09:40 Aerobic Blood Culture - Preliminary Blood - Venous - Lab Draw NO GROWTH AFTER 2 DAYS Anaerobic Blood Culture - Final 11/20/19 09:20 Aerobic Blood Culture - Preliminary Blood - Venous NO GROWTH AFTER 2 DAYS Anaerobic Blood Culture - Preliminary NO GROWTH AFTER 2 DAYS Med Orders - Current: Current Medications Acetaminophen (Tylenol) 325 mg PO Q4H PRN PRN Reason: Pain (Mild 1-3)/fever Last Admin: 11/22/19 08:21 Dose: 325 mg Documented by: Amlodipine Besylate (Norvasc) 7.5 mg PO DAILY [facility] Last Admin: 11/22/19 08:22 Dose: 7.5 mg Documented by: Aspirin (Aspirin) 81 mg PO DAILY [facility] Last Admin: 11/22/19 08:21 Dose: 81 mg Documented by: Budesonide (Pulmicort) 0.5 mg NEB BIDRT [facility] Last Admin: 11/22/19 06:27 Dose: 0.5 mg Documented by: Cephalexin (Keflex) 500 mg PO BID [facility] Last Admin: 11/22/19 11:07 Dose: 500 mg Documented by: Dextrose/Water (Dextrose 50% In Water) 50 ml IVPUSH ASDIRECTED PRN PRN Reason: Hypoglycemia Enoxaparin Sodium (Lovenox) 40 mg SUBCUT BID [facility] Last Admin: 11/22/19 08:29 Dose: 40 mg Documented by: Furosemide (Lasix) 80 mg IVPUSH DAILY [facility] Last Admin: 11/22/19 08:31 Dose: 80 mg Documented by: Gabapentin (Neurontin) 600 mg PO TID [facility] Last Admin: 11/22/19 15:52 Dose: 600 mg Documented by: Guaifenesin (Mucinex) 600 mg PO BID PRN PRN Reason: Cough Last Admin: 11/22/19 03:02 Dose: 600 mg Documented by: Hydralazine HCl (Apresoline) 10 mg IVPUSH Q2H PRN PRN Reason: Hypertension Diltiazem HCl 100 mg/ Sodium (Chloride) 100 mls @ 5 mls/hr IV TITRATE [facility]; Protocol Last Admin: 11/22/19 15:50 Dose: 5 mg/hr, 5 mls/hr Documented by: Heparin Sodium/Dextrose (Heparin 25,000 Units In D5w 500 Ml) 25,000 units in 500 mls @ 25.561 mls/hr IV TITRATE [facility]; Protocol Last Admin: 11/22/19 16:04 Dose: 12 units/kg/hr, 25.561 mls/hr Documented by: Insulin Glargine (Lantus) 60 unit SUBCUT QAM [facility] Last Admin: 11/22/19 08:28 Dose: 60 units Documented by: Insulin Human Lispro (Humalog) 12 unit SUBCUT ACLUNCH [facility] Last Admin: 11/22/19 10:46 Dose: Not Given Documented by: Insulin Human Lispro (Humalog) 14 unit SUBCUT ACDINNER [facility] Last Admin: 11/22/19 16:00 Dose: Not Given Documented by: Insulin Human Lispro (Humalog) 18 unit SUBCUT ACBREAKFAST [facility] Last Admin: 11/22/19 08:26 Dose: 18 units Documented by: Ipratropium Winter (Atrovent) 0.5 mg NEB Q8HRRT [facility] Last Admin: 11/22/19 13:29 Dose: 0.5 mg Documented by: Lisinopril (Prinivil) 20 mg PO BEDTIME [facility] Methyl Salicylate (Icy Hot Cream) 0 gm TOP Q2HR PRN PRN Reason: Pain (mild 1-3) Last Admin: 11/21/19 20:33 Dose: 1 applic Documented by: Ondansetron HCl (Zofran) 4 mg IV Q6H PRN PRN Reason: Nausea/Vomiting Pramipexole Dihydrochloride (Mirapex) 0.25 mg PO BEDTIME [facility] Senna (Senna) 8.6 mg PO DAILY [facility] Last Admin: 11/22/19 08:22 Dose: 8.6 mg Documented by: Sertraline HCl (Zoloft) 100 mg PO DAILY [facility] Last Admin: 11/22/19 08:22 Dose: 100 mg Documented by: Discontinued Medications Diltiazem HCl (Cardizem) 25 mg IVPUSH ONETIME STA Stop: 11/22/19 13:36 Last Admin: 11/22/19 13:47 Dose: 25 mg Documented by: Furosemide (Lasix) 40 mg IVPUSH NOW ONE Stop: 11/21/19 08:56 Last Admin: 11/21/19 09:41 Dose: 40 mg Documented by: Heparin Sodium (Porcine) (Heparin Sodium) 4,000 units IVPUSH .BOLUS ONE Stop: 11/22/19 15:46 Last Admin: 11/22/19 15:59 Dose: 4,000 units Documented by: Hydralazine HCl (Apresoline) 10 mg IVPUSH Q2H PRN PRN Reason: Hypertension Lactated Ringer's (Ringers, Lactated) 1,000 mls @ 999 mls/hr IV .BOLUS ONE Stop: 11/20/19 10:34 Last Admin: 11/20/19 09:42 Dose: 999 mls/hr Documented by: Lactated Ringer's (Ringers, Lactated) 500 mls @ 999 mls/hr IV .BOLUS ONE Stop: 11/20/19 11:26 Last Admin: 11/20/19 11:01 Dose: 999 mls/hr Documented by: Lactated Ringer's (Ringers, Lactated) 1,000 mls @ 150 mls/hr IV ASDIRECTED [facility] Last Admin: 11/21/19 03:54 Dose: 150 mls/hr Documented by: Piperacillin Sod/Tazobactam (Sod 4.5 gm/ Sodium Chloride) 100 mls @ 200 mls/hr IV ONETIME ONE Stop: 11/20/19 11:37 Last Admin: 11/20/19 11:23 Dose: 200 mls/hr Documented by: Vancomycin HCl 1 gm/Vancomycin HCl 500 mg/ Sodium Chloride 500 mls @ 250 mls/hr IV ONETIME ONE Stop: 11/20/19 14:59 Last Admin: 11/20/19 13:07 Dose: 250 mls/hr Documented by: Vancomycin HCl 1 gm/ Sodium (Chloride) 250 mls @ 250 mls/hr IV Q24H [facility] Cefazolin Sodium/Dextrose 2 gm (/ Premix) 50 mls @ 100 mls/hr IV Q8H [facility] Last Admin: 11/22/19 03:02 Dose: 100 mls/hr Documented by: Insulin Aspart (Novolog Mix 70-30) 12 unit SUBCUT STAT STA Stop: 11/21/19 12:31 Last Admin: 11/21/19 12:45 Dose: Not Given Documented by: Insulin Aspart (Novolog) 18 unit SUBCUT ACBREAKFAST [facility] Last Admin: 11/22/19 08:28 Dose: Not Given Documented by: Insulin Human Lispro (Humalog) 12 unit SUBCUT ONETIME ONE Stop: 11/21/19 12:43 Last Admin: 11/21/19 12:55 Dose: 12 units Documented by: Insulin Human Lispro (Humalog) 10 unit SUBCUT ONETIME ONE Stop: 11/22/19 10:46 Last Admin: 11/22/19 11:10 Dose: 10 units Documented by: Levalbuterol HCl (Xopenex) 1.25 mg NEB Q8HRRT [facility] Last Admin: 11/20/19 18:47 Dose: Not Given Documented by: Methylprednisolone Sodium Succinate (Solu-Medrol) 40 mg IVPUSH Q12H [facility] Stop: 11/21/19 04:46 Last Admin: 11/21/19 03:54 Dose: 40 mg Documented by: Ondansetron HCl (Zofran) 4 mg IVPUSH ONETIME ONE Stop: 11/20/19 10:08 Last Admin: 11/20/19 10:22 Dose: 4 mg Documented by: Vancomycin HCl (Pharmacy To Dose - Vancomycin) 1 dose .XX ONETIME PRN PRN Reason: RX TO DOSE VANCO - Exam Quality Assessment: Reports: DVT Prophylaxis General: Reports: Alert, Cooperative, No Acute Distress HEENT: Reports: Pupils Equal, Pupils Reactive, Mucous Membr. Moist/[place] Neck: Reports: Supple, Trachea Midline Lungs: Reports: Normal Respiratory Effort, Decreased Breath Sounds Cardiovascular: Reports: Irregular Rhythm (A-fib with RVR ), Tachycardia GI/Abdominal Exam: Normal Bowel Sounds, Soft, Non-Tender, No Distention (Female) Exam: Deferred Rectal (Female) Exam: Deferred Back Exam: Reports: Normal Inspection, Full Range of Motion Extremities: Normal Inspection, Normal Range of Motion, Non-Tender, No Pedal Edema, Normal Capillary Refill Skin: Reports: Warm, Dry, Intact Wound/Incisions: Reports: Healing Well, No Drainage, Erythema Improving Neurological: Reports: No New Focal Deficit Psy/Mental Status: Reports: Alert
[2019-11-22] MEDS ORDERED: Diltiazem 50 MG/10 ML SDV IVPUSH ONE (16:30)
[2019-11-22 16:47] VITALS: BP 156/80
[2019-11-22] MEDS ORDERED: Pramipexole 0.25 MG Tab PO SCH (21:00)
[2019-11-22] MEDS ORDERED: Lisinopril 10 MG Tab PO SCH (21:00)
== END 2019-11-22 17:49 | DRG 280 ==
LOC: JD.ED 08:55 → JD.MS 11:25 → JD.ICU 11-22 15:35
PROVIDERS: ADMIT Internal Medicine; ATTEND Internal Medicine
DX: I21.4 Non-ST elevation (NSTEMI) myocardial infarction (principal); J96.01 Acute respiratory failure with hypoxia; J18.9 Pneumonia, unspecified organism; E87.1 Hypo-osmolality and hyponatremia; I50.9 Heart failure, unspecified; E78.00 Pure hypercholesterolemia, unspecified; N17.9 Acute kidney failure, unspecified; L03.115 Cellulitis of right lower limb; Z87.440 Personal history of urinary (tract) infections; N30.01 Acute cystitis with hematuria; E11.40 Type 2 diabetes mellitus with diabetic neuropathy, unspecified; I50.32 Chronic diastolic (congestive) heart failure; F32.9 Major depressive disorder, single episode, unspecified; R65.10 Systemic inflammatory response syndrome (SIRS) of non-infectious origin without acute organ dysfunction; E66.9 Obesity, unspecified; E55.9 Vitamin D deficiency, unspecified; Z98.49 Cataract extraction status, unspecified eye; Z96.649 Presence of unspecified artificial hip joint; K21.9 Gastro-esophageal reflux disease without esophagitis; E11.43 Type 2 diabetes mellitus with diabetic autonomic (poly)neuropathy; H54.7 Unspecified visual loss; Z66 Do not resuscitate; I11.0 Hypertensive heart disease with heart failure; Z20.828 Contact with and (suspected) exposure to other viral communicable diseases; E11.42 Type 2 diabetes mellitus with diabetic polyneuropathy; I48.91 Unspecified atrial fibrillation; G30.9 Alzheimer's disease, unspecified; F02.80 Dementia in other diseases classified elsewhere, unspecified severity, without behavioral disturbance, psychotic disturbance, mood disturbance, and anxiety; F32.89 Other specified depressive episodes; E78.5 Hyperlipidemia, unspecified; K31.84 Gastroparesis; E03.9 Hypothyroidism, unspecified; Z79.899 Other long term (current) drug therapy; I25.2 Old myocardial infarction; Z79.4 Long term (current) use of insulin; Z79.890 Hormone replacement therapy; Z79.82 Long term (current) use of aspirin
CPT/HCPCS: 36415; 36600; 71045; 80053; 81001; 82803; 83036; 83605; 83735; 83880; 84100; 84145; 84484; 85007; 85027; 85610; 87040 ×2; 87086; 87088; 87186; 93005; 96361; 96374; 96375; 99285; J2405; J2543; J7050; J7120 ×2; U0002; 71046; 71046-26; 80048; 82947; 82962; 84134; 84443; 85025; 85730; 87641; 94640; 97162-GP; 97165-GO; 97530-GO; 99284; A9270-GY; J0690; J1644; J1650; J1815-GY; J1940; J2920; J3370; J3490; J7040

== ENCOUNTER 2020-09-14 20:44 | Inpatient (IN) | payer MEDICARE, BC ==
[2020-09-14] MEDS ORDERED: Sodium Chloride 0.9% 10 ML Syringe FLUSH PRN (21:07)
[2020-09-14] MEDS ORDERED: cefTRIAXone 2 GM in Sodium Chloride 0.9% 100 ML IV ONE (21:09)
--- NOTE | 2020-09-14 22:24 | EDM.PDOC ---
ED HPI GENERAL MEDICAL PROBLEM - General Chief Complaint: Respiratory Problem Stated Complaint: [facility] Time Seen by Provider: 09/14/20 20:47 Source of Information: Reports: Patient, EMS, Family, Alf Records History Limitations: Reports: No Limitations - History of Present Illness INITIAL COMMENTS - FREE TEXT/NARRATIVE: The patient presents by [facility] for low oxygen saturations and a fever. The patient is a resident of [facility]. She did not feel well today. She did not want to eat. She had a cough. Her oxygen saturations were low in the 70s. She normally does not use oxygen. She also had a temp. She has no chest pain. She has no abdominal pain, nausea or vomiting. She does have dementia. Onset: Gradual Duration: Hour(s): Severity: Moderate Improves with: Reports: None Worsens with: Reports: None Associated Symptoms: Reports: Cough, Fever/Chills. Denies: Chest Pain, Headaches, Nausea/Vomiting, Shortness of Breath - Related Data Allergies Allergy/AdvReac Type Severity Reaction Status Date / Time No Known Allergies Allergy Verified 09/14/20 20:52 Home Meds: Home Meds Furosemide [Lasix] 80 mg PO DAILY 03/31/17 [History] Levothyroxine [Levothroid] 175 mcg PO DAILY 03/31/17 [History] Sertraline [Zoloft] 100 mg PO DAILY 03/31/17 [History] lisinopriL [Zestril] 20 mg PO DAILY 03/31/17 [History] Acetaminophen [Acetaminophen Extra Strength] 650 mg PO BID 11/08/17 [History] Aspirin 81 mg PO DAILY 11/08/17 [History] Gabapentin [Neurontin] 300 mg PO BID 11/08/17 [History] Magnesium Oxide 400 mg PO BID 11/08/17 [History] Pramipexole Di-HCl [Mirapex] 0.25 mg PO BEDTIME 11/08/17 [History] Acetaminophen [Tylenol] 650 mg PO BID PRN 11/20/19 [History] Cyanocobalamin (Vitamin B12) [Vitamin B13] 500 mcg PO DAILY 11/20/19 [History] Albuterol Sulfate [Proair Digihaler] 2 puff IH Q6HR PRN 09/14/20 [History] Baclofen 5 mg PO BID 09/14/20 [History] Diltiazem [Cardizem CD] 240 mg PO DAILY 09/14/20 [History] Metoprolol Succinate [Toprol Xl] 50 mg PO DAILY 09/14/20 [History] Nitroglycerin [Nitro-Bid 2%] 0.5 inch TOP Q6HR PRN 09/14/20 [History] Pantoprazole Sodium [Protonix] 40 mg PO DAILY 09/14/20 [History] Pravastatin [Pravachol] 20 mg PO BEDTIME 09/14/20 [History] bisacodyL [Dulcolax] 10 mg RC DAILY PRN 09/14/20 [History] cloNIDine [Catapres] 0.3 mg PO BID 09/14/20 [History] hydrALAZINE [Apresoline] 20 mg PO QID 09/14/20 [History] Past Medical History HEENT History: Reports: Impaired Vision Other HEENT History: Wears glasses Cardiovascular History: Reports: Heart Failure, High Cholesterol, Hypertension, [place] Other Cardiovascular History: acute chronic diastolic CHF Respiratory History: Reports: None Gastrointestinal History: Reports: GERD Other Gastrointestinal History: gastroparesis Genitourinary History: Reports: UTI, 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 - Infectious Disease History Infectious Disease History: Reports: Chicken Pox, Measles - Past Surgical History HEENT Surgical History: Reports: Cataract Surgery Other Female Surgeries/Procedures: 10 vaginal deliveries and 2 misccarriages Musculoskeletal Surgical History: Reports: Hip Replacement Other Musculoskeletal Surgeries/Procedures:: this isnt on history portion on the paperwork given by [facility]. Social & Family History - Family History Family Medical History: No Pertinent Family History - Tobacco Use Tobacco Use Status *Q: Never Tobacco User - Caffeine Use Caffeine Use: Reports: Coffee - Recreational Drug Use Recreational Drug Use: No - Living Situation & Occupation Living situation: Reports: , with Family Occupation: Retired ED ROS GENERAL - Review of Systems Review Of Systems: See Below Constitutional: Reports: Fever HEENT: Reports: No Symptoms Respiratory: Reports: Shortness of Breath, Cough Cardiovascular: Reports: No Symptoms Endocrine: Reports: No Symptoms GI/Abdominal: Reports: No Symptoms : Reports: No Symptoms Musculoskeletal: Reports: No Symptoms ED EXAM, GENERAL - Physical Exam Exam: See Below Exam Limited By: No Limitations General Appearance: Alert, No Apparent Distress Ears: Normal External Exam Nose: Normal Inspection Head: Atraumatic, Normocephalic Neck: Normal Inspection Respiratory/Chest: No Respiratory Distress, Decreased Breath Sounds Cardiovascular: Regular Rate, Rhythm, No Edema, No Murmur GI/Abdominal: Soft, Non-Tender, No Organomegaly, No Mass Back Exam: Normal Inspection Extremities: Normal Inspection Neurological: Alert, Oriented, No Motor/Sensory Deficits Course - Vital Signs Last Recorded V/S: Last Vital Signs Temp 99.6 F 09/14/20 20:55 Pulse 63 09/14/20 23:30 Resp 18 09/14/20 23:30 BP 110/38 L 09/14/20 23:30 Pulse Ox 95 09/14/20 23:30 - Orders/Labs/Meds Orders: Active Orders 24 hr Category Date Time Status Cardiac Monitoring [RC] . DIRECTED Care 09/14/20 21:07 Active Oxygen Therapy [RC] PRN Care 09/14/20 21:07 Active Peripheral IV Care [RC] . DIRECTED Care 09/14/20 21:08 Active Chest 1V Frontal [CR] Stat Exams 09/14/20 21:09 Taken CULTURE BLOOD [BC] Stat Lab 09/14/20 21:35 Received CULTURE BLOOD [BC] Stat Lab 09/14/20 21:44 Received Sodium Chloride 0.9% [Saline Flush] Med 09/14/20 21:07 Active 10 ml FLUSH ASDIRECTED PRN Blood Culture x2 Reflex Set [OM.PC] Stat Oth 09/14/20 21:09 Ordered Peripheral IV Insertion Adult [OM.PC] Stat Oth 09/14/20 21:07 Ordered Medication Orders Sodium Chloride (Sodium Chloride 0.9% 10 Ml Syringe) 10 ml FLUSH ASDIRECTED PRN PRN Reason: Keep Vein Open Last Admin: 09/14/20 21:35 Dose: 10 ml Documented by: LAURA Labs: Laboratory Tests 06/09/14/20 09/14/20 Range/Units 20:52 20:52 20:56 WBC 14.36 H (3.98-10.04) K/mm3 RBC 4.27 (3.98-5.22) M/mm3 Hgb 11.7 (11.2-15.7) gm/dl Hct 36.7 (34.1-44.9) % MCV 85.9 (79.4-94.8) fl MCH 27.4 (25.6-32.2) pg MCHC 31.9 L (32.2-35.5) g/dl RDW Std Deviation 48.8 H (36.4-46.3) fL Plt Count 209 (182-369) K/mm3 MPV 11.9 (9.4-12.3) fl Neut % (Auto) 85.2 H (34.0-71.1) % Lymph % (Auto) 8.7 L (19.3-51.7) % Esmeralda % (Auto) 5.6 (4.7-12.5) % Eos % (Auto) 0.1 L (0.7-5.8) Baso % (Auto) 0.1 (0.1-1.2) % Neut # (Auto) 12.23 H (1.56-6.13) K/mm3 Lymph # (Auto) 1.25 (1.18-3.74) K/mm3 Esmeralda # (Auto) 0.80 H (0.24-0.36) K/mm3 Eos # (Auto) 0.02 L (0.04-0.36) K/mm3 Baso # (Auto) 0.02 (0.01-0.08) K/mm3 Manual Slide Review Abnormal smear Sodium 133 L (136-145) mEq/L Potassium 4.5 (3.5-5.1) mEq/L Chloride 97 L (98-107) mEq/L Carbon Dioxide 29 (21-32) mEq/L Anion Gap 11.5 (5-15) BUN 38 H (7-18) mg/dL Creatinine 1.5 H (0.55-1.02) mg/dL Est Cr Clr Drug Dosing 25.57 mL/min Estimated GFR (MDRD) 33 (>60) mL/min BUN/Creatinine Ratio 25.3 H (14-18) Glucose 402 H* (70-99) mg/dL POC Glucose 369 H (70-99) mg/dL Lactic Acid (0.4-2.0) mmol/L Calcium 8.3 L (8.5-10.1) mg/dL Total Bilirubin 0.4 (0.2-1.0) mg/dL AST 11 L (15-37) U/L ALT 15 (14-59) U/L Alkaline Phosphatase 78 (46-116) U/L C-Reactive Protein 3.1 H* (<1.0) mg/dL Total Protein 7.1 (6.4-8.2) g/dl Albumin 3.1 L (3.4-5.0) g/dl Globulin 4.0 gm/dL Albumin/Globulin Ratio 0.8 L (1-2) Urine Color (Yellow) Urine Appearance (Clear) Urine pH (5.0-8.0) Ur Specific [place] (1.005-1.030) Urine Protein (Negative) Urine Glucose (UA) (Negative) Urine Ketones (Negative) Urine Occult Blood (Negative) Urine Nitrite (Negative) Urine Bilirubin (Negative) Urine Urobilinogen (0.2-1.0) Ur Leukocyte Esterase (Negative) Urine RBC (0-5) /hpf Urine WBC (0-5) /hpf Ur Squamous Epith Cells (0-5) /hpf Urine Bacteria (FEW) /hpf Urine Mucus (FEW) /hpf SARS-CoV-2 RNA (ROXY) (NEGATIVE) 09/14/20 09/14/20 09/14/20 Range/Units 21:15 21:35 22:28 WBC (3.98-10.04) K/mm3 RBC (3.98-5.22) M/mm3 Hgb (11.2-15.7) gm/dl Hct (34.1-44.9) % MCV (79.4-94.8) fl MCH (25.6-32.2) pg MCHC (32.2-35.5) g/dl RDW Std Deviation (36.4-46.3) fL Plt Count (182-369) K/mm3 MPV (9.4-12.3) fl Neut % (Auto) (34.0-71.1) % Lymph % (Auto) (19.3-51.7) % Esmeralda % (Auto) (4.7-12.5) % Eos % (Auto) (0.7-5.8) Baso % (Auto) (0.1-1.2) % Neut # (Auto) (1.56-6.13) K/mm3 Lymph # (Auto) (1.18-3.74) K/mm3 Esmeralda # (Auto) (0.24-0.36) K/mm3 Eos # (Auto) (0.04-0.36) K/mm3 Baso # (Auto) (0.01-0.08) K/mm3 Manual Slide Review Sodium (136-145) mEq/L Potassium (3.5-5.1) mEq/L Chloride (98-107) mEq/L Carbon Dioxide (21-32) mEq/L Anion Gap (5-15) BUN (7-18) mg/dL Creatinine (0.55-1.02) mg/dL Est Cr Clr Drug Dosing mL/min Estimated GFR (MDRD) (>60) mL/min BUN/Creatinine Ratio (14-18) Glucose (70-99) mg/dL POC Glucose (70-99) mg/dL Lactic Acid 1.0 (0.4-2.0) mmol/L Calcium (8.5-10.1) mg/dL Total Bilirubin (0.2-1.0) mg/dL AST (15-37) U/L ALT (14-59) U/L Alkaline Phosphatase (46-116) U/L C-Reactive Protein (<1.0) mg/dL Total Protein (6.4-8.2) g/dl Albumin (3.4-5.0) g/dl Globulin gm/dL Albumin/Globulin Ratio (1-2) Urine Color Yellow (Yellow) Urine Appearance Slt cloudy H (Clear) Urine pH 5.5 (5.0-8.0) Ur Specific [place] 1.020 (1.005-1.030) Urine Protein 1+ H (Negative) Urine Glucose (UA) 1+ H (Negative) Urine Ketones Negative (Negative) Urine Occult Blood Negative (Negative) Urine Nitrite Positive H (Negative) Urine Bilirubin Negative (Negative) Urine Urobilinogen 0.2 (0.2-1.0) Ur Leukocyte Esterase 1+ H (Negative) Urine RBC 0-5 (0-5) /hpf Urine WBC 30-40 H (0-5) /hpf Ur Squamous Epith Cells 5-10 H (0-5) /hpf Urine Bacteria Many H (FEW) /hpf Urine Mucus Few (FEW) /hpf SARS-CoV-2 RNA (ROXY) Negative (NEGATIVE) Meds: Medications Generic Name Dose Route Start Last Admin Trade Name Elian PRN Reason Stop Dose Admin Sodium Chloride 10 ml 09/14/20 21:07 09/14/20 21:35 Sodium Chloride 0.9% 10 Ml Syringe FLUSH 10 ml ASDIRECTED PRN Administration Keep Vein Open Discontinued Medications Generic Name Dose Route Start Last Admin Trade Name Freandry PRN Reason Stop Dose Admin Ceftriaxone Sodium 2 gm/ 100 mls @ 200 mls/hr 09/14/20 21:09 09/14/20 22:02 Sodium Chloride IV 09/14/20 21:38 200 mls/hr ONETIME ONE Administration Insulin Human Regular 10 unit 09/14/20 23:30 Insulin Regular, Human 100 Units/Ml 3 Ml Vial SUBCUT 09/14/20 23:31 ONETIME ONE - Re-Assessments/Exams Free Text/Narrative Re-Assessment/Exam: 09/14/20 23:34 I ordered oxygen, CXR, IV saline lock, labs, blood cultures, UA and rocephin 2 grams IV. Her CXR shows a right middle lobe infiltrate. Her WBC was elevated at 14.36. Her Na was low at 133. Her creatinine is elevated at 1.5. Her glucose is elevated at 402. Her lactic acid is normal at 1. Her CRP is elevated at 3.1. Her UA shows a UTI. I have ordered urine cultures. I called Dr Scherer and he agreed to the admission. 09/14/20 23:37 COVID was negative. Departure - Departure Time of Disposition: 23:40 Disposition: Admitted As Inpatient 67 Condition: Serious Clinical Impression: Hypoxia Pneumonia Qualifiers: Pneumonia type: due to unspecified organism Laterality: right Lung location: middle lobe of lung Qualified Code(s): J18.9 - Pneumonia, unspecified organism UTI (urinary tract infection) Qualifiers: Urinary tract infection type: acute cystitis Hematuria presence: with hematuria Qualified Code(s): N30.01 - Acute cystitis with hematuria - Discharge Information Sepsis Event Note (ED) - Evaluation Sepsis Screening Result: No Definite Risk - Focused Exam Vital Signs: Vital Signs Temp Pulse Resp BP Pulse Ox 09/14/20 20:55 99.6 F 72 24 H 147/84 H 98 - My Orders Last 24 Hours: My Active Orders 09/14/20 21:07 Cardiac Monitoring [RC] . DIRECTED Oxygen Therapy [RC] PRN Sodium Chloride 0.9% [Saline Flush] 10 ml FLUSH ASDIRECTED PRN Peripheral IV Insertion Adult [OM.PC] Stat 09/14/20 21:08 Peripheral IV Care [RC] . DIRECTED 09/14/20 21:09 Chest 1V Frontal [CR] Stat Blood Culture x2 Reflex Set [OM.PC] Stat 09/14/20 21:35 CULTURE BLOOD [BC] Stat 09/14/20 21:44 CULTURE BLOOD [BC] Stat - Assessment/Plan Last 24 Hours: My Active Orders 09/14/20 21:07 Cardiac Monitoring [RC] . DIRECTED Oxygen Therapy [RC] PRN Sodium Chloride 0.9% [Saline Flush] 10 ml FLUSH ASDIRECTED PRN Peripheral IV Insertion Adult [OM.PC] Stat 09/14/20 21:08 Peripheral IV Care [RC] . DIRECTED 09/14/20 21:09 Chest 1V Frontal [CR] Stat Blood Culture x2 Reflex Set [OM.PC] Stat 09/14/20 21:35 CULTURE BLOOD [BC] Stat 09/14/20 21:44 CULTURE BLOOD [BC] Stat
[2020-09-14] MEDS ORDERED: Insulin Regular, Human 100 Units/ML 3 ML Vial SUBCUT ONE (23:30)
[2020-09-15] MEDS ORDERED: Ondansetron 4 MG/2 ML SDV IVPUSH PRN (02:05)
[2020-09-15] MEDS: Acetaminophen 325 MG Tab PO PRN ×2 (04:15→16:56)
[2020-09-15] MEDS ORDERED: Albuterol 6.7 GM Inhaler INH PRN (06:53)
[2020-09-15] MEDS ORDERED: Bisacodyl 10 MG Supp RECTAL PRN (06:53)
[2020-09-15] MEDS ORDERED: oxyCODONE 5 MG Tab PO PRN (07:00)
[2020-09-15] MEDS ORDERED: Albuterol/Ipratropium 3.0-0.5 MG/3 ML Neb Soln NEB PRN (07:00)
[2020-09-15] MEDS ORDERED: Ondansetron 4 MG Tab.DIS PO PRN (07:00)
--- NOTE | 2020-09-15 07:40 | PCM.HP.2 ---
H&P History of Present Illness - General Date of Service: 09/15/20 Admit Problem/Dx: Admission Diagnosis/Problem Admission Diagnosis/Problem Pneumonia Source of Information: Patient, EMS Notes Reviewed, Old Records History Limitations: Reports: Other (Baseline dementia) - History of Present Illness Initial Comments - Free Text/Narative: The patient is an 84-year-old lady who was brought to the emergency room [facility] as she was reported to have low oxygen saturations and a fever. The patient is a resident of [facility]. The patient had not been well today. She does have severe baseline dementia and the patient is not able to participate in any meaningful way with her history and physical. Family members are not present. Therefore information has been taken from her previous records as well as emergency room charting. She will respond to questions with one-word answers and she is denied any pain. She also denied any fever or chills although she did spike a fever yesterday evening. Onset of Symptoms: Reports: Unknown/Unsure Improves with: Reports: None Worsens with: Reports: None Associated Symptoms: Reports: Other ([facility] resident) - Related Data Allergies/Adverse Reactions: Allergies Allergy/AdvReac Type Severity Reaction Status Date / Time No Known Allergies Allergy Verified 09/14/20 20:52 Home Medications: Home Meds Furosemide [Lasix] 80 mg PO DAILY 03/31/17 [History] Levothyroxine [Levothroid] 175 mcg PO DAILY 03/31/17 [History] Sertraline [Zoloft] 100 mg PO DAILY 03/31/17 [History] lisinopriL [Zestril] 20 mg PO DAILY 03/31/17 [History] Acetaminophen [Acetaminophen Extra Strength] 650 mg PO BID 11/08/17 [History] Aspirin 81 mg PO DAILY 11/08/17 [History] Gabapentin [Neurontin] 300 mg PO BID 11/08/17 [History] Magnesium Oxide 400 mg PO BID 11/08/17 [History] Pramipexole Di-HCl [Mirapex] 0.25 mg PO BEDTIME 11/08/17 [History] Acetaminophen [Tylenol] 650 mg PO BID PRN 11/20/19 [History] Cyanocobalamin (Vitamin B12) [Vitamin B13] 500 mcg PO DAILY 11/20/19 [History] Albuterol Sulfate [Proair Digihaler] 2 puff IH Q6HR PRN 09/14/20 [History] Baclofen 5 mg PO BID 09/14/20 [History] Diltiazem [Cardizem CD] 240 mg PO DAILY 09/14/20 [History] Insulin Glargine,Hum.Rec.Anlog [Lantus Solostar] 36 unit SQ ACBREAKFAST 09/14/20 [History] Metoprolol Succinate [Toprol Xl] 50 mg PO DAILY 09/14/20 [History] Nitroglycerin [Nitro-Bid 2%] 0.5 inch TOP Q6HR PRN 09/14/20 [History] Pantoprazole Sodium [Protonix] 40 mg PO DAILY 09/14/20 [History] Pravastatin [Pravachol] 20 mg PO BEDTIME 09/14/20 [History] bisacodyL [Dulcolax] 10 mg RC DAILY PRN 09/14/20 [History] cloNIDine [Catapres] 0.3 mg PO BID 09/14/20 [History] hydrALAZINE [Apresoline] 20 mg PO QID 09/14/20 [History] Past Medical History HEENT History: Reports: Impaired Vision Other HEENT History: Wears glasses Cardiovascular History: Reports: Heart Failure, High Cholesterol, Hypertension, [place] Other Cardiovascular History: acute chronic diastolic CHF Respiratory History: Reports: None Gastrointestinal History: Reports: GERD Other Gastrointestinal History: gastroparesis Genitourinary History: Reports: UTI, Recurrent 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 - Infectious Disease History Infectious Disease History: Reports: Chicken Pox, Measles - Past Surgical History HEENT Surgical History: Reports: Cataract Surgery Other Female Surgeries/Procedures: 10 vaginal deliveries and 2 misccarriages Musculoskeletal Surgical History: Reports: Hip Replacement Other Musculoskeletal Surgeries/Procedures:: this isnt on history portion on the paperwork given by [employer]. Social & Family History - Family History Family Medical History: No Pertinent Family History - Tobacco Use Tobacco Use Status *Q: Never Tobacco User - Caffeine Use Caffeine Use: Reports: Coffee - Recreational Drug Use Recreational Drug Use: No - Living Situation & Occupation Living situation: Reports: , Extended Care Facility Occupation: Retired H&P Review of Systems - Review of Systems: Review Of Systems: Unable To Obtain Reason Not Obtained: Baseline dementia Exam - Exam Exam: See Below - Vital Signs Vital Signs: Last Vital Signs Temp 37.5 C 09/15/20 06:00 Pulse 79 09/15/20 03:56 Resp 22 H 09/15/20 03:56 BP 141/89 H 09/15/20 03:56 Pulse Ox 93 L 09/15/20 03:56 Weight: 102.013 kg - Exam Quality Assessment: Supplemental Oxygen, DVT Prophylaxis General: No: Alert, Oriented (Oriented to person only) HEENT: Conjunctiva Clear, EACs Clear, EOMI. No: Mucosa Moist & [place] (Dry) Neck: Supple, Trachea Midline Lungs: Normal Respiratory Effort, Rales (Right lung) Cardiovascular: Regular Rate, Regular Rhythm GI/Abdominal Exam: Normal Bowel Sounds, Soft, Non-Tender (No reaction), No Distention (Female) Exam: Deferred Rectal (Female) Exam: Deferred Back Exam: No: Normal Inspection (Appropriate for age) Extremities: Normal Inspection, No Pedal Edema Skin: Warm, Dry, Intact Neurological: No: Normal Gait, Normal Speech Neuro Extensive - Mental Status: No: Alert, Oriented x3 Psychiatric: Alert - Patient Data Lab Results Last 24 hrs: Laboratory Results - last 24 hr 09/14/20 09/14/20 09/14/20 Range/Units 20:52 20:52 20:56 WBC 14.36 H (3.98-10.04) K/mm3 RBC 4.27 (3.98-5.22) M/mm3 Hgb 11.7 (11.2-15.7) gm/dl Hct 36.7 (34.1-44.9) % MCV 85.9 (79.4-94.8) fl MCH 27.4 (25.6-32.2) pg MCHC 31.9 L (32.2-35.5) g/dl RDW Std Deviation 48.8 H (36.4-46.3) fL Plt Count 209 (182-369) K/mm3 MPV 11.9 (9.4-12.3) fl Neut % (Auto) 85.2 H (34.0-71.1) % Lymph % (Auto) 8.7 L (19.3-51.7) % [place] % (Auto) 5.6 (4.7-12.5) % Eos % (Auto) 0.1 L (0.7-5.8) Baso % (Auto) 0.1 (0.1-1.2) % Neut # (Auto) 12.23 H (1.56-6.13) K/mm3 Lymph # (Auto) 1.25 (1.18-3.74) K/mm3 [place] # (Auto) 0.80 H (0.24-0.36) K/mm3 Eos # (Auto) 0.02 L (0.04-0.36) K/mm3 Baso # (Auto) 0.02 (0.01-0.08) K/mm3 Manual Slide Review Abnormal smear Sodium 133 L (136-145) mEq/L Potassium 4.5 (3.5-5.1) mEq/L Chloride 97 L (98-107) mEq/L Carbon Dioxide 29 (21-32) mEq/L Anion Gap 11.5 (5-15) BUN 38 H (7-18) mg/dL Creatinine 1.5 H (0.55-1.02) mg/dL Est Cr Clr Drug Dosing 25.57 mL/min Estimated GFR (MDRD) 33 (>60) mL/min BUN/Creatinine Ratio 25.3 H (14-18) Glucose 402 H* (70-99) mg/dL POC Glucose 369 H (70-99) mg/dL Lactic Acid (0.4-2.0) mmol/L Calcium 8.3 L (8.5-10.1) mg/dL Total Bilirubin 0.4 (0.2-1.0) mg/dL AST 11 L (15-37) U/L ALT 15 (14-59) U/L Alkaline Phosphatase 78 (46-116) U/L C-Reactive Protein 3.1 H* (<1.0) mg/dL Total Protein 7.1 (6.4-8.2) g/dl Albumin 3.1 L (3.4-5.0) g/dl Globulin 4.0 gm/dL Albumin/Globulin Ratio 0.8 L (1-2) Urine Color (Yellow) Urine Appearance (Clear) Urine pH (5.0-8.0) Ur Specific [place] (1.005-1.030) Urine Protein (Negative) Urine Glucose (UA) (Negative) Urine Ketones (Negative) Urine Occult Blood (Negative) Urine Nitrite (Negative) Urine Bilirubin (Negative) Urine Urobilinogen (0.2-1.0) Ur Leukocyte Esterase (Negative) Urine RBC (0-5) /hpf Urine WBC (0-5) /hpf Ur Squamous Epith Cells (0-5) /hpf Urine Bacteria (FEW) /hpf Urine Mucus (FEW) /hpf SARS-CoV-2 RNA (ROXY) (NEGATIVE) MRSA (PCR) 09/14/20 09/14/20 09/14/20 Range/Units 21:15 21:35 22:28 WBC (3.98-10.04) K/mm3 RBC (3.98-5.22) M/mm3 Hgb (11.2-15.7) gm/dl Hct (34.1-44.9) % MCV (79.4-94.8) fl MCH (25.6-32.2) pg MCHC (32.2-35.5) g/dl RDW Std Deviation (36.4-46.3) fL Plt Count (182-369) K/mm3 MPV (9.4-12.3) fl Neut % (Auto) (34.0-71.1) % Lymph % (Auto) (19.3-51.7) % [place] % (Auto) (4.7-12.5) % Eos % (Auto) (0.7-5.8) Baso % (Auto) (0.1-1.2) % Neut # (Auto) (1.56-6.13) K/mm3 Lymph # (Auto) (1.18-3.74) K/mm3 [place] # (Auto) (0.24-0.36) K/mm3 Eos # (Auto) (0.04-0.36) K/mm3 Baso # (Auto) (0.01-0.08) K/mm3 Manual Slide Review Sodium (136-145) mEq/L Potassium (3.5-5.1) mEq/L Chloride (98-107) mEq/L Carbon Dioxide (21-32) mEq/L Anion Gap (5-15) BUN (7-18) mg/dL Creatinine (0.55-1.02) mg/dL Est Cr Clr Drug Dosing mL/min Estimated GFR (MDRD) (>60) mL/min BUN/Creatinine Ratio (14-18) Glucose (70-99) mg/dL POC Glucose (70-99) mg/dL Lactic Acid 1.0 (0.4-2.0) mmol/L Calcium (8.5-10.1) mg/dL Total Bilirubin (0.2-1.0) mg/dL AST (15-37) U/L ALT (14-59) U/L Alkaline Phosphatase (46-116) U/L C-Reactive Protein (<1.0) mg/dL Total Protein (6.4-8.2) g/dl Albumin (3.4-5.0) g/dl Globulin gm/dL Albumin/Globulin Ratio (1-2) Urine Color Yellow (Yellow) Urine Appearance Slt cloudy H (Clear) Urine pH 5.5 (5.0-8.0) Ur Specific [place] 1.020 (1.005-1.030) Urine Protein 1+ H (Negative) Urine Glucose (UA) 1+ H (Negative) Urine Ketones Negative (Negative) Urine Occult Blood Negative (Negative) Urine Nitrite Positive H (Negative) Urine Bilirubin Negative (Negative) Urine Urobilinogen 0.2 (0.2-1.0) Ur Leukocyte Esterase 1+ H (Negative) Urine RBC 0-5 (0-5) /hpf Urine WBC 30-40 H (0-5) /hpf Ur Squamous Epith Cells 5-10 H (0-5) /hpf Urine Bacteria Many H (FEW) /hpf Urine Mucus Few (FEW) /hpf SARS-CoV-2 RNA (ROXY) Negative (NEGATIVE) MRSA (PCR) 09/15/20 09/15/20 09/15/20 Range/Units 02:55 03:29 06:12 WBC (3.98-10.04) K/mm3 RBC (3.98-5.22) M/mm3 Hgb (11.2-15.7) gm/dl Hct (34.1-44.9) % MCV (79.4-94.8) fl MCH (25.6-32.2) pg MCHC (32.2-35.5) g/dl RDW Std Deviation (36.4-46.3) fL Plt Count (182-369) K/mm3 MPV (9.4-12.3) fl Neut % (Auto) (34.0-71.1) % Lymph % (Auto) (19.3-51.7) % [place] % (Auto) (4.7-12.5) % Eos % (Auto) (0.7-5.8) Baso % (Auto) (0.1-1.2) % Neut # (Auto) (1.56-6.13) K/mm3 Lymph # (Auto) (1.18-3.74) K/mm3 [place] # (Auto) (0.24-0.36) K/mm3 Eos # (Auto) (0.04-0.36) K/mm3 Baso # (Auto) (0.01-0.08) K/mm3 Manual Slide Review Sodium (136-145) mEq/L Potassium (3.5-5.1) mEq/L Chloride (98-107) mEq/L Carbon Dioxide (21-32) mEq/L Anion Gap (5-15) BUN (7-18) mg/dL Creatinine (0.55-1.02) mg/dL Est Cr Clr Drug Dosing mL/min Estimated GFR (MDRD) (>60) mL/min BUN/Creatinine Ratio (14-18) Glucose (70-99) mg/dL POC Glucose 242 H 217 H (70-99) mg/dL Lactic Acid (0.4-2.0) mmol/L Calcium (8.5-10.1) mg/dL Total Bilirubin (0.2-1.0) mg/dL AST (15-37) U/L ALT (14-59) U/L Alkaline Phosphatase (46-116) U/L C-Reactive Protein (<1.0) mg/dL Total Protein (6.4-8.2) g/dl Albumin (3.4-5.0) g/dl Globulin gm/dL Albumin/Globulin Ratio (1-2) Urine Color (Yellow) Urine Appearance (Clear) Urine pH (5.0-8.0) Ur Specific [place] (1.005-1.030) Urine Protein (Negative) Urine Glucose (UA) (Negative) Urine Ketones (Negative) Urine Occult Blood (Negative) Urine Nitrite (Negative) Urine Bilirubin (Negative) Urine Urobilinogen (0.2-1.0) Ur Leukocyte Esterase (Negative) Urine RBC (0-5) /hpf Urine WBC (0-5) /hpf Ur Squamous Epith Cells (0-5) /hpf Urine Bacteria (FEW) /hpf Urine Mucus (FEW) /hpf SARS-CoV-2 RNA (ROXY) (NEGATIVE) MRSA (PCR) Negative Result Diagrams: 09/15/20 07:23 09/15/20 07:23 Sepsis Event Note - Evaluation Sepsis Screening Result: Sepsis Risk Current Stage of Sepsis: Sepsis - Focused Exam Sepsis Event Note Statement: Focused Sepsis Exam Completed Vital Signs: Vital Signs Temp Temp Temp Pulse Pulse Resp BP 09/15/20 06:00 37.5 C 09/15/20 04:15 38.8 C H 09/15/20 03:56 38.8 C H 79 22 H 141/89 H 09/15/20 01:29 24 H 09/15/20 01:20 63 169/78 H 09/15/20 01:17 36.7 C 63 20 173/110 H 09/14/20 23:30 63 18 09/14/20 20:55 37.6 C 72 24 H BP Pulse Ox 09/15/20 06:00 09/15/20 04:15 09/15/20 03:56 93 L 09/15/20 01:29 138/62 100 09/15/20 01:20 100 09/15/20 01:17 100 09/14/20 23:30 110/38 L 95 09/14/20 20:55 147/84 H 98 Capillary Refill, Detail: Less than/Equal to (</=) 2 Seconds Pulse Description: 2+ Normal Peripheral Pulse Location: Radial Skin Exam (Focused Sepsis): Pale *Q Meaningful Use (ADM) - VTE *Q VTE Mechanical Contraindications *Q: At Risk for Falls - Problem List (1) Sepsis SNOMED Code(s): 21573222 ICD Code: A41.9 - SEPSIS, UNSPECIFIED ORGANISM Status: Acute Priority: High Current Visit: Yes Qualifiers: Sepsis type: sepsis due to unspecified organism Sepsis acute organ dysfunction status: with acute organ dysfunction Severe sepsis acute organ dysfunction type: acute respiratory failure Acute respiratory failure type: with hypoxia Severe sepsis shock status: without septic shock Qualified Code(s): A41.9 - Sepsis, unspecified organism; R65.20 - Severe sepsis without se ptic shock; J96.01 - Acute respiratory failure with hypoxia (2) Acute respiratory failure SNOMED Code(s): 59606164 ICD Code: J96.00 - ACUTE RESPIRATORY FAILURE, UNSP W HYPOXIA OR HYPERCAPNIA Status: Acute Priority: High Current Visit: Yes Qualifiers: Respiratory failure complication: hypoxia Qualified Code(s): J96.01 - Acute respiratory failure with hypoxia (3) Pneumonia SNOMED Code(s): 659414888 ICD Code: J18.9 - PNEUMONIA, UNSPECIFIED ORGANISM Status: Acute Priority: High Current Visit: Yes Qualifiers: Pneumonia type: due to unspecified organism Laterality: right Lung location: middle lobe of lung Qualified Code(s): J18.9 - Pneumonia, unspecified organism (4) UTI (urinary tract infection) SNOMED Code(s): 13309544 ICD Code: N39.0 - URINARY TRACT INFECTION, SITE NOT SPECIFIED Status: Acute Priority: High Current Visit: Yes Qualifiers: Urinary tract infection type: acute cystitis Hematuria presence: with hematuria Qualified Code(s): N30.01 - Acute cystitis with hematuria (5) Dementia SNOMED Code(s): 15940202 ICD Code: F03.90 - UNSPECIFIED DEMENTIA WITHOUT BEHAVIORAL DISTURBANCE Status: Chronic Priority: Medium Current Visit: Yes Qualifiers: Dementia type: Alzheimer's disease Alzheimer's disease onset: unspecified onset Dementia behavioral disturbance: without behavioral disturbance Qualified Code(s): G30.9 - Alzheimer's disease, unspecified; F02.80 - Dementia in other diseases classified elsewhere without behavioral disturbance (6) Hypertension SNOMED Code(s): 44443514 ICD Code: I10 - ESSENTIAL (PRIMARY) HYPERTENSION Status: Chronic Priority: Medium Current Visit: Yes Qualifiers: Hypertension type: essential hypertension Qualified Code(s): I10 - Essential (primary) hypertension Problem List Initiated/Reviewed/Updated: Yes Orders Last 24hrs: Active Orders 24 hr Category Date Time Status Patient Status [ADT] Routine ADT 09/14/20 23:15 Active Bedrest [RC] ASDIRECTED Care 09/15/20 01:50 Active Blood Glucose Check, Bedside [RC] QIDACANDBED Care 09/15/20 05:00 Active Blood Glucose Check, Bedside [RC] TIDMEALS Care 09/15/20 07:00 Active Blood Glucose Check, Bedside [RC] TIDMEALS Care 09/15/20 07:00 Active Blood Glucose Check, Bedside [RC] TIDMEALS Care 09/15/20 07:00 Active Diabetes Education [RC] Click to Edit Care 09/15/20 07:01 Active Oxygen Therapy [RC] PRN Care 09/14/20 21:07 Active Oxygen Therapy [RC] PRN Care 09/15/20 07:00 Active Peripheral IV Care [RC] . DIRECTED Care 09/14/20 21:08 Active RT Aerosol Therapy [RC] ASDIRECTED Care 09/15/20 07:03 Active Up With Assistance [RC] ASDIRECTED Care 09/15/20 07:00 Active VTE/DVT Education [RC] PER UNIT ROUTINE Care 09/15/20 07:00 Active Vital Signs [RC] Q4H Care 09/15/20 07:00 Active Vital Signs [RC] Q4HR Care 09/15/20 04:00 Active OT Evaluation and Treatment [CONS] Routine Cons 09/15/20 07:00 Active PT Evaluation and Treatment [CONS] Routine Cons 09/15/20 07:00 Active Consistent Carbohydrate Diet [DIET] Diet 09/15/20 Breakfast Active Chest 1V Frontal [CR] Stat Exams 09/14/20 21:09 Taken BASIC METABOLIC PANEL,BMP [CHEM] Routine Lab 09/15/20 07:23 Received CBC WITH AUTO DIFF [HEME] AM Lab 09/16/20 05:11 Ordered CBC WITH AUTO DIFF [HEME] Routine Lab 09/15/20 07:23 Received COMPREHENSIVE METABOLIC PN,CMP [CHEM] AM Lab 09/16/20 05:11 Ordered CULTURE BLOOD [BC] Stat Lab 09/14/20 21:35 Received CULTURE BLOOD [BC] Stat Lab 09/14/20 21:44 Received CULTURE URINE [MREF] Stat Lab 09/14/20 22:28 Received MAGNESIUM [CHEM] AM Lab 09/16/20 05:11 Ordered Acetaminophen [TylenoL] Med 09/15/20 02:03 Active 975 mg PO Q6H PRN Albuterol [Proventil HFA] Med 09/15/20 06:53 Active 0 gm INH Q6H PRN Albuterol/Ipratropium [DuoNeb 3.0-0.5 MG/3 ML] Med 09/15/20 07:00 Active 3 ml NEB Q4H PRN Aspirin Med 09/15/20 09:00 Active 81 mg PO DAILY Baclofen [Lioresal] Med 09/15/20 09:00 Active 5 mg PO BID Diltiazem [Dilacor XR] Med 09/15/20 09:00 Active 240 mg PO DAILY Enoxaparin [Lovenox] Med 09/15/20 09:00 Active 30 mg SUBCUT DAILY Furosemide [Lasix] Med 09/15/20 09:00 Active 80 mg PO DAILY Gabapentin [Neurontin] Med 09/15/20 09:00 Active 300 mg PO BID Insulin Regular, Human [HumuLIN R] Med 09/15/20 09:00 Active See Protocol SUBCUT TIDPC Levothyroxine Med 09/15/20 07:30 Active 75 mcg PO 0700 Levothyroxine [Synthroid] Med 09/15/20 07:30 Active 100 mcg PO DAILY@0700 Magnesium Oxide Med 09/15/20 09:00 Active 400 mg PO BID Metoprolol Succinate [Toprol XL] Med 09/15/20 09:00 Active 50 mg PO DAILY Ondansetron [Zofran ODT] Med 09/15/20 07:00 Active 4 mg PO Q4H PRN Ondansetron [Zofran] Med 09/15/20 02:05 Active 4 mg IVPUSH Q6H PRN Pantoprazole [ProTONIX] Med 09/15/20 09:00 Active 40 mg PO DAILY Pramipexole [Mirapex] Med 09/15/20 21:00 Active 0.25 mg PO BEDTIME Pravastatin [Pravachol] Med 09/15/20 21:00 Active 20 mg PO BEDTIME Sertraline [Zoloft] Med 09/15/20 09:00 Active 100 mg PO DAILY Sodium Chloride 0.9% [Normal Saline] 1,000 ml Med 09/15/20 07:00 Active IV ASDIRECTED Sodium Chloride 0.9% [Saline Flush] Med 09/14/20 21:07 Active 10 ml FLUSH ASDIRECTED PRN bisacodyL [Dulcolax] Med 09/15/20 06:53 Active 10 mg RECTAL DAILY PRN cefTRIAXone [Rocephin] 2 gm Med 09/15/20 21:00 Active Sodium Chloride 0.9% [Normal Saline] 100 ml IV Q24H cloNIDine [Catapres] Med 09/15/20 09:00 Active 0.3 mg PO BID hydrALAZINE [Apresoline] Med 09/15/20 09:00 Active 20 mg PO QID lisinopriL [Prinivil] Med 09/15/20 09:00 Active 20 mg PO DAILY oxyCODONE Med 09/15/20 07:00 Active 5 mg PO Q4H PRN Blood Culture x2 Reflex Set [OM.PC] Stat Ot 09/14/20 21:09 Ordered Glucose Management Sub Q Reflex [OM.PC] Click to Edit Oth 09/15/20 07:00 Ordered Peripheral IV Insertion Adult [OM.PC] Stat Ot 09/14/20 21:07 Ordered VTE Mechanical Contraindications [AST] Per Unit Routine Oth 09/15/20 07:00 Ordered Code Status [Resuscitation Status] Routine Resus Stat 09/15/20 01:49 Ordered Medication Orders Acetaminophen (Acetaminophen 325 Mg Tab) 975 mg PO Q6H PRN PRN Reason: Pain/Fever Last Admin: 09/15/20 04:15 Dose: 975 mg Documented by: CULLEN Albuterol (Albuterol 6.7 Gm Inhaler) 0 gm INH Q6H PRN PRN Reason: Shortness of Breath Albuterol/Ipratropium (Albuterol/Ipratropium 3.0-0.5 Mg/3 Ml Neb Soln) 3 ml NEB Q4H PRN PRN Reason: Shortness Of Breath/wheezing Aspirin (Aspirin 81 Mg Tab.Chew) 81 mg PO DAILY NISHA Baclofen (Baclofen 10 Mg Tab) 5 mg PO BID NISHA Bisacodyl (Bisacodyl 10 Mg Supp) 10 mg RECTAL DAILY PRN PRN Reason: Constipation Clonidine HCl (Clonidine 0.1 Mg Tab) 0.3 mg PO BID NISHA Diltiazem HCl (Diltiazem 240 Mg Cap.Er) 240 mg PO DAILY NISHA Enoxaparin Sodium (Enoxaparin 30 Mg/0.3 Ml Syringe) 30 mg SUBCUT DAILY [facility] Furosemide (Furosemide 40 Mg Tab) 80 mg PO DAILY [facility] Gabapentin (Gabapentin 300 Mg Cap) 300 mg PO BID [facility] Hydralazine HCl (Hydralazine 10 Mg Tab) 20 mg PO QID [facility] Ceftriaxone Sodium 2 gm/ (Sodium Chloride) 100 mls @ 200 mls/hr IV Q24H [facility] Sodium Chloride (Normal Saline) 1,000 mls @ 75 mls/hr IV ASDIRECTED [facility] Insulin Human Regular (Insulin Regular, Human 100 Units/Ml 3 Ml Vial) 0 unit SUBCUT TIDPC NISHA; Protocol Levothyroxine Sodium (Levothyroxine 100 Mcg Tab) 100 mcg PO DAILY@0700 [facility] Levothyroxine Sodium (Levothyroxine 75 Mcg Tab) 75 mcg PO 0700 [facility] Lisinopril (Lisinopril 20 Mg Tab) 20 mg PO DAILY [facility] Magnesium Oxide (Magnesium Oxide 400 Mg Tab) 400 mg PO BID [facility] Metoprolol Succinate (Metoprolol Succinate 50 Mg Tab.Er) 50 mg PO DAILY [facility] Ondansetron HCl (Ondansetron 4 Mg/2 Ml Sdv) 4 mg IVPUSH Q6H PRN PRN Reason: Nausea/Vomiting Ondansetron HCl (Ondansetron 4 Mg Tab.Dis) 4 mg PO Q4H PRN PRN Reason: nausea, able to take PO Oxycodone HCl (Oxycodone 5 Mg Tab) 5 mg PO Q4H PRN PRN Reason: Pain (moderate 4-6) Pantoprazole Sodium (Pantoprazole 40 Mg Tab.Cr) 40 mg PO DAILY [facility] Pramipexole Dihydrochloride (Pramipexole 0.25 Mg Tab) 0.25 mg PO BEDTIME [facility] Pravastatin Sodium (Pravastatin 20 Mg Tab) 20 mg PO BEDTIME [facility] Sertraline HCl (Sertraline 50 Mg Tab) 100 mg PO DAILY [facility] Sodium Chloride (Sodium Chloride 0.9% 10 Ml Syringe) 10 ml FLUSH ASDIRECTED PRN PRN Reason: Keep Vein Open Last Admin: 09/14/20 21:35 Dose: 10 ml Documented by: LAURA Assessment/Plan Comment:: The patient is an 84-year-old lady who was admitted as an inpatient due to acute respiratory failure with associated sepsis likely due to both pneumonia and urinary tract infection. Oxygen ordered to keep the patient saturations around 92%. Continue Rocephin until specific bacteria isolated. The patient will be kept on IV normal saline at 75 mL/h this is done in order to avoid fluid overload. I have reconciled the patient's medications and her vital signs will be monitored and her antihypertensive medications adjusted as necessary. She also be kept on appropriate diabetic diet and Accu-Cheks AC. PT OT is also been ordered for the patient. [facility] and she is supposed to be in comfort measures. Family is not available to discuss this with him at this time. There is conflict between medications that the patient is currently taking as well as her current resuscitation status. Several of her medications would have been discontinued if the patient was in comfort care. And it is also unclear as to why the patient will be transferred to the emergency department. Disposition is currently pending. - Mortality Measure Prognosis:: Poor
--- NOTE | 2020-09-15 07:50 | CR ---
Chest: Frontal view of the chest was obtained. Comparison: Prior chest x-ray of 11/22/19 and 11/20/19. Heart size and mediastinum are within normal limits. Lung markings are slightly increased which appear stable. No acute parenchymal change is seen. Mild scattered degenerative change is partially seen within the lumbar spine with minimal scoliosis. Impression: 1. Findings as noted above. 2. Nothing acute is seen on frontal chest x-ray. Diagnostic code #2
[2020-09-15] MEDS ORDERED: Enoxaparin 30 MG/0.3 ML Syringe SUBCUT SCH (09:00)
[2020-09-15] MEDS ORDERED: Enoxaparin 40 MG/0.4 ML Syringe SUBCUT SCH (09:00)
[2020-09-15] MEDS ORDERED: Baclofen 10 MG Tab PO SCH (09:00)
[2020-09-15] MEDS ORDERED: Aspirin 81 MG Tab.Chew PO SCH (09:00)
[2020-09-15] MEDS: Gabapentin 300 MG Cap PO SCH ×2 (09:41→20:37)
[2020-09-15] MEDS: cloNIDine 0.1 MG Tab PO SCH ×2 (09:41→20:37)
[2020-09-15] MEDS: Magnesium Oxide 400 MG Tab PO SCH ×2 (09:41→20:37)
[2020-09-15] MEDS: Diltiazem 240 MG Cap.ER PO SCH (09:42)
[2020-09-15] MEDS: Metoprolol Succinate 50 MG Tab.ER PO SCH (09:50)
[2020-09-15] MEDS: Levothyroxine 100 MCG Tab PO SCH (09:50)
[2020-09-15] MEDS: hydrALAZINE 10 MG Tab PO SCH ×4 (09:50→20:37)
[2020-09-15] MEDS: Pantoprazole 40 MG Tab.CR PO SCH (09:50)
[2020-09-15] MEDS: Sertraline 50 MG Tab PO SCH (09:51)
[2020-09-15] MEDS: Furosemide 40 MG Tab PO SCH (09:51)
[2020-09-15] MEDS: Levothyroxine 75 MCG Tab PO SCH (09:52)
[2020-09-15] MEDS: Lisinopril 20 MG Tab PO SCH (09:52)
[2020-09-15] MEDS: Insulin Regular, Human 100 Units/ML 3 ML Vial SUBCUT SCH ×3 (10:29→18:45)
--- NOTE | 2020-09-15 11:33 | PCM.SN.2 ---
- Free Text/Narrative Note: I was able to have a conversation with the patient's gutierrez of deputy county attorney and daughters Shereen Roca regarding her mother. The patient's daughters were concerned with regards to the amount of medications that the patient had been previously taking. She is currently in DO NOT INTUBATE DO NOT RESUSCITATE, comfort measures only. The patient's daughters say that the patient has been declining rapidly and has been ready to pass on. The patient has severe dementia and has been having good and bad days. I have recommended to the patient's daughters that the patient be considered for hospice care. They are aware of what hospice is able to provide with comfort measures. Hospice consult has been ordered. I plan on discontinuing most if not all of her medications.
[2020-09-15] MEDS: Sodium Chloride 0.9% 1,000 ML IV SCH (18:53)
[2020-09-15] MEDS: Pramipexole 0.25 MG Tab PO SCH (20:37)
[2020-09-15] MEDS: cefTRIAXone 2 GM in Sodium Chloride 0.9% 100 ML IV SCH (20:38)
[2020-09-15] MEDS ORDERED: Pravastatin 20 MG Tab PO SCH (21:00)
[2020-09-16] MEDS: Levothyroxine 100 MCG Tab PO SCH (06:10)
[2020-09-16] MEDS: Levothyroxine 75 MCG Tab PO SCH (06:10)
[2020-09-16] MEDS: Sodium Chloride 0.9% 1,000 ML IV SCH ×2 (08:38→22:15)
[2020-09-16] MEDS: Furosemide 40 MG Tab PO SCH (08:51)
[2020-09-16] MEDS: Magnesium Oxide 400 MG Tab PO SCH ×2 (08:51→20:03)
[2020-09-16] MEDS: Diltiazem 240 MG Cap.ER PO SCH (08:51)
[2020-09-16] MEDS: Pantoprazole 40 MG Tab.CR PO SCH (08:52)
[2020-09-16] MEDS: Metoprolol Succinate 50 MG Tab.ER PO SCH (08:52)
[2020-09-16] MEDS: Sertraline 50 MG Tab PO SCH (08:52)
[2020-09-16] MEDS: Gabapentin 300 MG Cap PO SCH ×2 (08:52→20:00)
[2020-09-16] MEDS: Lisinopril 20 MG Tab PO SCH (08:53)
[2020-09-16] MEDS: hydrALAZINE 10 MG Tab PO SCH ×4 (08:53→20:00)
[2020-09-16] MEDS: cloNIDine 0.1 MG Tab PO SCH ×2 (08:53→20:03)
[2020-09-16] MEDS: Insulin Regular, Human 100 Units/ML 3 ML Vial SUBCUT SCH ×3 (08:55→18:22)
--- NOTE | 2020-09-16 10:59 | CR ---
Chest: Portable view of the chest was obtained. Comparison: Prior chest x-ray 09/14/20. Heart size is within normal limits for portable technique. Lungs show no acute parenchymal change. Slightly less than optimal inspiratory effort is noted. Bony structure shows nothing acute. Incidental note of mild degenerative change and slight scoliosis being noted within the spine. Impression: 1. Stable findings as described above. 2. Nothing acute is appreciated on portable chest x-ray. Diagnostic code #2
--- NOTE | 2020-09-16 11:18 | PCM.PN ---
- General Info Date of Service: 09/16/20 Admission Dx/Problem (Free Text): Admission Diagnosis/Problem Admission Diagnosis/Problem UTI, dementia, sepsis Subjective Update: The patient is an 84-year-old lady who has advanced dementia was admitted to the hospital on September 15, 2020 out of concern for fever at senior living and possible pneumonia. The patient says that she does not feel well but she has been unable to articulate exactly how. The patient is in a DO NOT INTUBATE DO NOT RESUSCITATE category with comfort measures and the family has declined hospice care for now. The patient does not remember me from yesterday. Functional Status: Reports: Pain Controlled, Tolerating Diet - Review of Systems General: Reports: No Symptoms HEENT: Reports: No Symptoms Pulmonary: Reports: No Symptoms Cardiovascular: Reports: No Symptoms Gastrointestinal: Reports: No Symptoms Genitourinary: Reports: No Symptoms Musculoskeletal: Reports: No Symptoms Skin: Reports: No Symptoms Neurological: Reports: No Symptoms Psychiatric: Reports: No Symptoms Systems Review Comment:: Not reliable due to the patient's dementia. - Patient Data Vitals - Most Recent: Last Vital Signs Temp 37.5 C 09/16/20 08:24 Pulse 69 09/16/20 08:52 Resp 24 H 09/16/20 08:16 BP 153/90 H 09/16/20 08:53 Pulse Ox 95 09/16/20 08:16 Weight - Most Recent: 101.242 kg I&O - Last 24 Hours: Intake & Output 09/15/20 09/16/20 09/16/20 22:59 06:59 14:59 Intake Total 810 1340 Balance 810 1340 Lab Results Last 24 Hours: Laboratory Results - last 24 hr 09/15/20 09/16/20 09/16/20 Range/Units 17:45 06:25 06:25 WBC 15.36 H (3.98-10.04) K/mm3 RBC 3.84 L (3.98-5.22) M/mm3 Hgb 10.5 L (11.2-15.7) gm/dl Hct 34.1 (34.1-44.9) % MCV 88.8 (79.4-94.8) fl MCH 27.3 (25.6-32.2) pg MCHC 30.8 L (32.2-35.5) g/dl RDW Std Deviation 49.7 H (36.4-46.3) fL Plt Count 173 L (182-369) K/mm3 MPV 12.2 (9.4-12.3) fl Neut % (Auto) 84.4 H (34.0-71.1) % Lymph % (Auto) 9.0 L (19.3-51.7) % [place] % (Auto) 6.1 (4.7-12.5) % Eos % (Auto) 0.1 L (0.7-5.8) Baso % (Auto) 0.1 (0.1-1.2) % Neut # (Auto) 12.97 H (1.56-6.13) K/mm3 Lymph # (Auto) 1.39 (1.18-3.74) K/mm3 [place] # (Auto) 0.94 H (0.24-0.36) K/mm3 Eos # (Auto) 0.01 L (0.04-0.36) K/mm3 Baso # (Auto) 0.01 (0.01-0.08) K/mm3 Manual Slide Review Abnormal smear Sodium 142 (136-145) mEq/L Potassium 3.9 (3.5-5.1) mEq/L Chloride 103 (98-107) mEq/L Carbon Dioxide 29 (21-32) mEq/L Anion Gap 13.9 (5-15) BUN 37 H (7-18) mg/dL Creatinine 1.2 H (0.55-1.02) mg/dL Est Cr Clr Drug Dosing 31.96 mL/min Estimated GFR (MDRD) 43 (>60) mL/min BUN/Creatinine Ratio 30.8 H (14-18) Glucose 326 H (70-99) mg/dL POC Glucose 229 H (70-99) mg/dL Calcium 8.7 (8.5-10.1) mg/dL Magnesium 1.6 L (1.8-2.4) mg/dL Total Bilirubin 0.4 (0.2-1.0) mg/dL AST 11 L (15-37) U/L ALT 10 L (14-59) U/L Alkaline Phosphatase 62 (46-116) U/L Total Protein 6.9 (6.4-8.2) g/dl Albumin 2.7 L (3.4-5.0) g/dl Globulin 4.2 gm/dL Albumin/Globulin Ratio 0.6 L (1-2) 09/16/20 09/16/20 Range/Units 06:30 11:03 WBC (3.98-10.04) K/mm3 RBC (3.98-5.22) M/mm3 Hgb (11.2-15.7) gm/dl Hct (34.1-44.9) % MCV (79.4-94.8) fl MCH (25.6-32.2) pg MCHC (32.2-35.5) g/dl RDW Std Deviation (36.4-46.3) fL Plt Count (182-369) K/mm3 MPV (9.4-12.3) fl Neut % (Auto) (34.0-71.1) % Lymph % (Auto) (19.3-51.7) % [place] % (Auto) (4.7-12.5) % Eos % (Auto) (0.7-5.8) Baso % (Auto) (0.1-1.2) % Neut # (Auto) (1.56-6.13) K/mm3 Lymph # (Auto) (1.18-3.74) K/mm3 [place] # (Auto) (0.24-0.36) K/mm3 Eos # (Auto) (0.04-0.36) K/mm3 Baso # (Auto) (0.01-0.08) K/mm3 Manual Slide Review Sodium (136-145) mEq/L Potassium (3.5-5.1) mEq/L Chloride (98-107) mEq/L Carbon Dioxide (21-32) mEq/L Anion Gap (5-15) BUN (7-18) mg/dL Creatinine (0.55-1.02) mg/dL Est Cr Clr Drug Dosing mL/min Estimated GFR (MDRD) (>60) mL/min BUN/Creatinine Ratio (14-18) Glucose (70-99) mg/dL POC Glucose 261 H 385 H (70-99) mg/dL Calcium (8.5-10.1) mg/dL Magnesium (1.8-2.4) mg/dL Total Bilirubin (0.2-1.0) mg/dL AST (15-37) U/L ALT (14-59) U/L Alkaline Phosphatase (46-116) U/L Total Protein (6.4-8.2) g/dl Albumin (3.4-5.0) g/dl Globulin gm/dL Albumin/Globulin Ratio (1-2) Leonides Results Last 24 Hours: Microbiology 09/14/20 21:35 Aerobic Blood Culture - Preliminary Blood - Venous NO GROWTH AFTER 1 DAY Anaerobic Blood Culture - Preliminary NO GROWTH AFTER 1 DAY 09/14/20 21:44 Aerobic Blood Culture - Preliminary Blood - Venous - Lab Draw NO GROWTH AFTER 1 DAY Anaerobic Blood Culture - Final Med Orders - Current: Current Medications Acetaminophen (Acetaminophen 325 Mg Tab) 975 mg PO Q6H PRN PRN Reason: Pain/Fever Last Admin: 09/15/20 16:56 Dose: 975 mg Documented by: Albuterol (Albuterol 6.7 Gm Inhaler) 0 gm INH Q6H PRN PRN Reason: Shortness of Breath Albuterol/Ipratropium (Albuterol/Ipratropium 3.0-0.5 Mg/3 Ml Neb Soln) 3 ml NEB Q4H PRN PRN Reason: Shortness Of Breath/wheezing Bisacodyl (Bisacodyl 10 Mg Supp) 10 mg RECTAL DAILY PRN PRN Reason: Constipation Clonidine HCl (Clonidine 0.1 Mg Tab) 0.3 mg PO BID [facility] Last Admin: 09/16/20 08:53 Dose: 0.3 mg Documented by: Diltiazem HCl (Diltiazem 240 Mg Cap.Er) 240 mg PO DAILY [facility] Last Admin: 09/16/20 08:51 Dose: 240 mg Documented by: Furosemide (Furosemide 40 Mg Tab) 80 mg PO DAILY [facility] Last Admin: 09/16/20 08:51 Dose: 80 mg Documented by: Gabapentin (Gabapentin 300 Mg Cap) 300 mg PO BID [facility] Last Admin: 09/16/20 08:52 Dose: 300 mg Documented by: Hydralazine HCl (Hydralazine 10 Mg Tab) 20 mg PO QID [facility] Last Admin: 09/16/20 08:53 Dose: 20 mg Documented by: Ceftriaxone Sodium 2 gm/ (Sodium Chloride) 100 mls @ 200 mls/hr IV Q24H [facility] Last Admin: 09/15/20 20:38 Dose: 200 mls/hr Documented by: Sodium Chloride (Normal Saline) 1,000 mls @ 75 mls/hr IV ASDIRECTED [facility] Last Admin: 09/16/20 08:38 Dose: 75 mls/hr Documented by: Insulin Human Regular (Insulin Regular, Human 100 Units/Ml 3 Ml Vial) 0 unit SUBCUT TIDPC [facility]; Protocol Last Admin: 09/16/20 08:55 Dose: 6 unit Documented by: Levothyroxine Sodium (Levothyroxine 100 Mcg Tab) 100 mcg PO DAILY@0700 [facility] Last Admin: 09/16/20 06:10 Dose: 100 mcg Documented by: Levothyroxine Sodium (Levothyroxine 75 Mcg Tab) 75 mcg PO 0700 [facility] Last Admin: 09/16/20 06:10 Dose: 75 mcg Documented by: Lisinopril (Lisinopril 20 Mg Tab) 20 mg PO DAILY [facility] Last Admin: 09/16/20 08:53 Dose: 20 mg Documented by: Magnesium Oxide (Magnesium Oxide 400 Mg Tab) 400 mg PO BID [facility] Last Admin: 09/16/20 08:51 Dose: 400 mg Documented by: Metoprolol Succinate (Metoprolol Succinate 50 Mg Tab.Er) 50 mg PO DAILY [facility] Last Admin: 09/16/20 08:52 Dose: 50 mg Documented by: Ondansetron HCl (Ondansetron 4 Mg/2 Ml Sdv) 4 mg IVPUSH Q6H PRN PRN Reason: Nausea/Vomiting Ondansetron HCl (Ondansetron 4 Mg Tab.Dis) 4 mg PO Q4H PRN PRN Reason: nausea, able to take PO Oxycodone HCl (Oxycodone 5 Mg Tab) 5 mg PO Q4H PRN PRN Reason: Pain (moderate 4-6) Pantoprazole Sodium (Pantoprazole 40 Mg Tab.Cr) 40 mg PO DAILY [facility] Last Admin: 09/16/20 08:52 Dose: 40 mg Documented by: Pramipexole Dihydrochloride (Pramipexole 0.25 Mg Tab) 0.25 mg PO BEDTIME [facility] Last Admin: 09/15/20 20:37 Dose: 0.25 mg Documented by: Sertraline HCl (Sertraline 50 Mg Tab) 100 mg PO DAILY [facility] Last Admin: 09/16/20 08:52 Dose: 100 mg Documented by: Sodium Chloride (Sodium Chloride 0.9% 10 Ml Syringe) 10 ml FLUSH ASDIRECTED PRN PRN Reason: Keep Vein Open Last Admin: 09/14/20 21:35 Dose: 10 ml Documented by: Discontinued Medications Aspirin (Aspirin 81 Mg Tab.Chew) 81 mg PO DAILY [facility] Last Admin: 09/15/20 09:41 Dose: 81 mg Documented by: Baclofen (Baclofen 10 Mg Tab) 5 mg PO BID [facility] Last Admin: 09/15/20 09:42 Dose: 5 mg Documented by: Enoxaparin Sodium (Enoxaparin 30 Mg/0.3 Ml Syringe) 30 mg SUBCUT DAILY [facility] Enoxaparin Sodium (Enoxaparin 40 Mg/0.4 Ml Syringe) 40 mg SUBCUT DAILY [facility] Last Admin: 09/15/20 09:52 Dose: 40 mg Documented by: Ceftriaxone Sodium 2 gm/ (Sodium Chloride) 100 mls @ 200 mls/hr IV ONETIME ONE Stop: 09/14/20 21:38 Last Admin: 09/14/20 22:02 Dose: 200 mls/hr Documented by: Insulin Human Regular (Insulin Regular, Human 100 Units/Ml 3 Ml Vial) 10 unit SUBCUT ONETIME ONE Stop: 09/14/20 23:31 Last Admin: 09/14/20 23:41 Dose: 10 unit Documented by: Pravastatin Sodium (Pravastatin 20 Mg Tab) 20 mg PO BEDTIME [facility] - Exam Quality Assessment: Supplemental Oxygen, DVT Prophylaxis (Heparin restarted) General: Cooperative. No: Alert, Oriented HEENT: Pupils Equal, Pupils Reactive, EOMI, Mucous Membr. Moist/[place] Neck: Supple, Trachea Midline Lungs: Clear to Auscultation, Normal Respiratory Effort Cardiovascular: Regular Rate, Regular Rhythm GI/Abdominal Exam: Normal Bowel Sounds, No Distention (Female) Exam: Deferred Back Exam: No: Normal Inspection (Appropriate for age) Extremities: No Pedal Edema. No: Normal Inspection (Appropriate for age) Skin: Warm, Dry, Intact Neurological: No New Focal Deficit Psy/Mental Status: No: Alert (Awake but not alert and oriented) - Patient Data Lab Results Last 24 hrs: Laboratory Results - last 24 hr 09/15/20 09/16/20 09/16/20 Range/Units 17:45 06:25 06:25 WBC 15.36 H (3.98-10.04) K/mm3 RBC 3.84 L (3.98-5.22) M/mm3 Hgb 10.5 L (11.2-15.7) gm/dl Hct 34.1 (34.1-44.9) % MCV 88.8 (79.4-94.8) fl MCH 27.3 (25.6-32.2) pg MCHC 30.8 L (32.2-35.5) g/dl RDW Std Deviation 49.7 H (36.4-46.3) fL Plt Count 173 L (182-369) K/mm3 MPV 12.2 (9.4-12.3) fl Neut % (Auto) 84.4 H (34.0-71.1) % Lymph % (Auto) 9.0 L (19.3-51.7) % [place] % (Auto) 6.1 (4.7-12.5) % Eos % (Auto) 0.1 L (0.7-5.8) Baso % (Auto) 0.1 (0.1-1.2) % Neut # (Auto) 12.97 H (1.56-6.13) K/mm3 Lymph # (Auto) 1.39 (1.18-3.74) K/mm3 [place] # (Auto) 0.94 H (0.24-0.36) K/mm3 Eos # (Auto) 0.01 L (0.04-0.36) K/mm3 Baso # (Auto) 0.01 (0.01-0.08) K/mm3 Manual Slide Review Abnormal smear Sodium 142 (136-145) mEq/L Potassium 3.9 (3.5-5.1) mEq/L Chloride 103 (98-107) mEq/L Carbon Dioxide 29 (21-32) mEq/L Anion Gap 13.9 (5-15) BUN 37 H (7-18) mg/dL Creatinine 1.2 H (0.55-1.02) mg/dL Est Cr Clr Drug Dosing 31.96 mL/min Estimated GFR (MDRD) 43 (>60) mL/min BUN/Creatinine Ratio 30.8 H (14-18) Glucose 326 H (70-99) mg/dL POC Glucose 229 H (70-99) mg/dL Calcium 8.7 (8.5-10.1) mg/dL Magnesium 1.6 L (1.8-2.4) mg/dL Total Bilirubin 0.4 (0.2-1.0) mg/dL AST 11 L (15-37) U/L ALT 10 L (14-59) U/L Alkaline Phosphatase 62 (46-116) U/L Total Protein 6.9 (6.4-8.2) g/dl Albumin 2.7 L (3.4-5.0) g/dl Globulin 4.2 gm/dL Albumin/Globulin Ratio 0.6 L (1-2) 09/16/20 09/16/20 Range/Units 06:30 11:03 WBC (3.98-10.04) K/mm3 RBC (3.98-5.22) M/mm3 Hgb (11.2-15.7) gm/dl Hct (34.1-44.9) % MCV (79.4-94.8) fl MCH (25.6-32.2) pg MCHC (32.2-35.5) g/dl RDW Std Deviation (36.4-46.3) fL Plt Count (182-369) K/mm3 MPV (9.4-12.3) fl Neut % (Auto) (34.0-71.1) % Lymph % (Auto) (19.3-51.7) % [place] % (Auto) (4.7-12.5) % Eos % (Auto) (0.7-5.8) Baso % (Auto) (0.1-1.2) % Neut # (Auto) (1.56-6.13) K/mm3 Lymph # (Auto) (1.18-3.74) K/mm3 [place] # (Auto) (0.24-0.36) K/mm3 Eos # (Auto) (0.04-0.36) K/mm3 Baso # (Auto) (0.01-0.08) K/mm3 Manual Slide Review Sodium (136-145) mEq/L Potassium (3.5-5.1) mEq/L Chloride (98-107) mEq/L Carbon Dioxide (21-32) mEq/L Anion Gap (5-15) BUN (7-18) mg/dL Creatinine (0.55-1.02) mg/dL Est Cr Clr Drug Dosing mL/min Estimated GFR (MDRD) (>60) mL/min BUN/Creatinine Ratio (14-18) Glucose (70-99) mg/dL POC Glucose 261 H 385 H (70-99) mg/dL Calcium (8.5-10.1) mg/dL Magnesium (1.8-2.4) mg/dL Total Bilirubin (0.2-1.0) mg/dL AST (15-37) U/L ALT (14-59) U/L Alkaline Phosphatase (46-116) U/L Total Protein (6.4-8.2) g/dl Albumin (3.4-5.0) g/dl Globulin gm/dL Albumin/Globulin Ratio (1-2) Result Diagrams: 09/16/20 06:25 09/16/20 06:25 Leonides Results Last 24 hrs: Microbiology 09/14/20 21:35 Aerobic Blood Culture - Preliminary Blood - Venous NO GROWTH AFTER 1 DAY Anaerobic Blood Culture - Preliminary NO GROWTH AFTER 1 DAY 09/14/20 21:44 Aerobic Blood Culture - Preliminary Blood - Venous - Lab Draw NO GROWTH AFTER 1 DAY Anaerobic Blood Culture - Final Sepsis Event Note - Evaluation Sepsis Screening Result: No Definite Risk - Focused Exam Vital Signs: Vital Signs Temp Pulse Resp BP Pulse Ox 09/16/20 08:53 153/90 H 09/16/20 08:52 69 153/90 H 09/16/20 08:24 37.5 C 09/16/20 08:20 153/90 H 09/16/20 08:16 69 24 H 95 - Problem List & Annotations (1) Sepsis SNOMED Code(s): 41384549 Code(s): A41.9 - SEPSIS, UNSPECIFIED ORGANISM Status: Resolved Priority: High Current Visit: Yes Qualifiers: Sepsis type: sepsis due to unspecified organism Sepsis acute organ dysfunction status: with acute organ dysfunction Severe sepsis acute organ dysfunction type: acute respiratory failure Acute respiratory failure type: with hypoxia Severe sepsis shock status: without septic shock Qualified Code(s): A41.9 - Sepsis, unspecified organism; R65.20 - Severe sepsis without septic shock; J96.01 - Acute respiratory failure with hypoxia (2) UTI (urinary tract infection) SNOMED Code(s): 02879044 Code(s): N39.0 - URINARY TRACT INFECTION, SITE NOT SPECIFIED Status: Acute Priority: High Current Visit: Yes Qualifiers: Urinary tract infection type: acute cystitis Hematuria presence: with hematuria Qualified Code(s): N30.01 - Acute cystitis with hematuria (3) Acute respiratory failure SNOMED Code(s): 97309085 Code(s): J96.00 - ACUTE RESPIRATORY FAILURE, UNSP W HYPOXIA OR HYPERCAPNIA Status: Acute Priority: High Current Visit: Yes Qualifiers: Respiratory failure complication: hypoxia Qualified Code(s): J96.01 - Acute respiratory failure with hypoxia (4) Pneumonia SNOMED Code(s): 362127178 Code(s): J18.9 - PNEUMONIA, UNSPECIFIED ORGANISM Status: Resolved Priority: High Current Visit: Yes Qualifiers: Pneumonia type: due to unspecified organism Laterality: right Lung location: middle lobe of lung Qualified Code(s): J18.9 - Pneumonia, unspecified organism (5) Dementia SNOMED Code(s): 85787801 Code(s): F03.90 - UNSPECIFIED DEMENTIA WITHOUT BEHAVIORAL DISTURBANCE Status: Chronic Priority: Medium Current Visit: Yes Qualifiers: Dementia type: Alzheimer's disease Alzheimer's disease onset: unspecified onset Dementia behavioral disturbance: without behavioral disturbance (6) Hypertension SNOMED Code(s): 00267842 Code(s): I10 - ESSENTIAL (PRIMARY) HYPERTENSION Status: Chronic Priority: Medium Current Visit: Yes Qualifiers: Hypertension type: essential hypertension Qualified Code(s): I10 - Essential (primary) hypertension - Problem List Review Problem List Initiated/Reviewed/Updated: Yes - My Orders Last 24 Hours: My Active Orders 09/15/20 Lunch Consistent Carbohydrate Diet [DIET] 09/15/20 11:32 Consult to Hospice [CONS] Routine 09/15/20 21:00 Pramipexole [Mirapex] 0.25 mg PO BEDTIME cefTRIAXone [Rocephin] 2 gm Sodium Chloride 0.9% [Normal Saline] 100 ml IV Q24H - Plan Plan:: The patient is an 84-year-old lady who was admitted as an inpatient due to acute respiratory failure with associated sepsis likely due to both pneumonia and u rinary tract infection. Oxygen ordered to keep the patient saturations around 92%. Continue Rocephin until specific bacteria isolated. The patient will be kept on IV normal saline at 75 mL/h this is done in order to avoid fluid overload. I have reconciled the patient's medications and her vital signs will be monitored and her antihypertensive medications adjusted as necessary. She also be kept on appropriate diabetic diet and Accu-Cheks AC. PT OT is also been ordered for the patient. The patient is here from senior living and she is supposed to be in comfort measures. Family is not available to discuss this with him at this time. There is conflict between medications that the patient is currently taking as well as her current resuscitation status. Several of her medications would have been discontinued if the patient was in comfort care. And it is also unclear as to why the patient will be transferred to the emergency department. Disposition is currently pending. 09/16/2020 The patient is an 84-year-old lady who was admitted as an inpatient due to acute respiratory failure and associated sepsis. The patient's sepsis has resolved and with a recent chest x-ray her pneumonia is also resolved. The patient will remain on ceftriaxone for urinary tract infection. The patient has been otherwise stable with her baseline dementia. The patient will also be kept on oxygen to help maintain saturations around 92%. She is also on IV fluids 75 mL/h and her fluid status will be monitored closely she does have a history of congestive heart failure. She is also diabetic Accu-Cheks before meals and at bedtime as well as appropriate diabetic diet. The patient is currently in comfort measures although the patient's family has declined hospice care at this time. Overall the patient's prognosis is poor. The patient will likely be transitioned to [facility] for continuation of comfort measure care. She is otherwise been hemodynamically stable. She does have permissive hypertension in order to help maintain tissue perfusion.
[2020-09-16] MEDS: Heparin Sodium 5,000 Units/ML Vial SUBCUT SCH ×2 (12:36→19:57)
[2020-09-16] MEDS: Pramipexole 0.25 MG Tab PO SCH (20:00)
[2020-09-16] MEDS: cefTRIAXone 2 GM in Sodium Chloride 0.9% 100 ML IV SCH (20:03)
[2020-09-17] MEDS: Heparin Sodium 5,000 Units/ML Vial SUBCUT SCH ×2 (04:21→13:17)
[2020-09-17] MEDS: Levothyroxine 100 MCG Tab PO SCH (06:05)
[2020-09-17] MEDS: Levothyroxine 75 MCG Tab PO SCH (06:05)
[2020-09-17] MEDS ORDERED: Furosemide 20 MG/2 ML VIAL IVPUSH ONE (08:39)
--- NOTE | 2020-09-17 08:43 | PCM.DCSUM1 ---
Discharge Summary - Hospital Course HPI Initial Comments: The patient was admitted secondary to septic episode along with possible pneumonia and urinary tract infection. Diagnosis: Stroke: No - Discharge Data Discharge Date: 09/17/20 Discharge Disposition: DC/Tfer to SNF 03 Condition: Good - Referral to Home Health Primary Care Physician: Anisa York MD - Discharge Diagnosis/Problem(s) (1) Sepsis SNOMED Code(s): 96412646 ICD Code: A41.9 - SEPSIS, UNSPECIFIED ORGANISM Status: Resolved Priority: High Current Visit: Yes Qualifiers: Sepsis type: sepsis due to unspecified organism Sepsis acute organ dysfunction status: with acute organ dysfunction Severe sepsis acute organ dysfunction type: acute respiratory failure Acute respiratory failure type: with hypoxia Severe sepsis shock status: without septic shock Qualified Code(s): A41.9 - Sepsis, unspecified organism; R65.20 - Severe sepsis without septic shock; J96.01 - Acute respiratory failure with hypoxia (2) UTI (urinary tract infection) SNOMED Code(s): 41013191 ICD Code: N39.0 - URINARY TRACT INFECTION, SITE NOT SPECIFIED Status: Resolved Priority: High Current Visit: Yes Qualifiers: Urinary tract infection type: acute cystitis Hematuria presence: with hematuria Qualified Code(s): N30.01 - Acute cystitis with hematuria (3) Acute respiratory failure SNOMED Code(s): 78084433 ICD Code: J96.00 - ACUTE RESPIRATORY FAILURE, UNSP W HYPOXIA OR HYPERCAPNIA Status: Resolved Priority: High Current Visit: Yes Qualifiers: Respiratory failure complication: hypoxia Qualified Code(s): J96.01 - Acute respiratory failure with hypoxia (4) Pneumonia SNOMED Code(s): 488018208 ICD Code: J18.9 - PNEUMONIA, UNSPECIFIED ORGANISM Status: Resolved Priority: High Current Visit: Yes Qualifiers: Pneumonia type: due to unspecified organism Laterality: right Lung location: middle lobe of lung Qualified Code(s): J18.9 - Pneumonia, unspecified organism (5) Dementia SNOMED Code(s): 12176504 ICD Code: F03.90 - UNSPECIFIED DEMENTIA WITHOUT BEHAVIORAL DISTURBANCE Status: Chronic Priority: Medium Current Visit: Yes Qualifiers: Dementia type: Alzheimer's disease Alzheimer's disease onset: unspecified onset Dementia behavioral disturbance: without behavioral disturbance (6) Hypertension SNOMED Code(s): 44901938 ICD Code: I10 - ESSENTIAL (PRIMARY) HYPERTENSION Status: Chronic Priority: Medium Current Visit: Yes Qualifiers: Hypertension type: essential hypertension Qualified Code(s): I10 - Essential (primary) hypertension - Patient Summary/Data Consults: Consultations 09/15/20 07:00 OT Evaluation and Treatment [CONS] Routine PT Evaluation and Treatment [CONS] Routine 09/15/20 11:32 Consult to Hospice [CONS] Routine Hospital Course: The patient is an 84-year-old lady who was brought to the emergency room by ambulance from her [facility] as she was reported to have low oxygen saturations and a fever. The patient is a resident of [facility]. The patient had not been well today. She does have severe baseline dem entia and the patient is not able to participate in any meaningful way with her history and physical.The patient had been placed on Rocephin for treatment of both what was thought to be pneumonia and urinary tract infection. The patient was septic and with IV fluids and antibiotics her diagnosis of sepsis resolved fairly quickly. The patient had tolerated the antibiotics well. A long discussion was held with the patient's family with regard to hospice care for the patient and hospice care was not recommended at this time by the patient's daughters. This may change in the future. The patient also had urine cultures obtained which grew out pansensitive Klebsiella. The patient also had been discharged on ciprofloxacin p.o. 500 mg twice daily for 4 days. A number of the patient's medications were discontinued as they can cause alteration in her mentation. In particular gabapentin and baclofen. This should be addressed by the patient's primary care physician. By day of discharge the patient had recovered some of her alertness although she remained confused. She was able to carry on a short conversation. The patient also said that she wanted to go home and stay with her family. The patient is a resident of [facility] and she will be returned to her home today. Patient had been tolerating her diabetic diet. She is also recommended to have activity as tolerated. The patient previously had been in a DO NOT RESUSCITATE/DO NOT INTUBATE category with comfort measures and this was changed to DO NOT INTUBATE DO NOT RESUSCITATE. Patient has been hemodynamically stable with permissive hypertension and she has been discharged from acute hospitalization with the recommendations listed above. - Patient Instructions Diet: Usual Diet as Tolerated, Diabetic Diet Activity: As Tolerated - Discharge Plan *PRESCRIPTION DRUG MONITORING PROGRAM REVIEWED*: No *COPY OF PRESCRIPTION DRUG MONITORING REPORT IN PATIENT ROCHELLE: No Prescriptions/Med Rec: Ciprofloxacin HCl [Cipro] 500 mg PO BID #4 tablet Home Medications: Home Meds Furosemide [Lasix] 80 mg PO DAILY 03/31/17 [History] Levothyroxine [Levothroid] 175 mcg PO DAILY 03/31/17 [History] Sertraline [Zoloft] 100 mg PO DAILY 03/31/17 [History] lisinopriL [Zestril] 20 mg PO DAILY 03/31/17 [History] Acetaminophen [Acetaminophen Extra Strength] 650 mg PO BID 11/08/17 [History] Aspirin 81 mg PO DAILY 11/08/17 [History] Magnesium Oxide 400 mg PO BID 11/08/17 [History] Pramipexole Di-HCl [Mirapex] 0.25 mg PO BEDTIME 11/08/17 [History] Cyanocobalamin (Vitamin B12) [Vitamin B12] 500 mcg PO DAILY 11/20/19 [History] Albuterol Sulfate [Proair Digihaler] 2 puff IH Q6HR PRN 09/14/20 [History] Diltiazem [Cardizem CD] 240 mg PO DAILY 09/14/20 [History] Insulin Glargine,Hum.Rec.Anlog [Lantus Solostar] 36 unit SQ ACBREAKFAST 09/14/20 [History] Metoprolol Succinate [Toprol Xl] 50 mg PO DAILY 09/14/20 [History] Nitroglycerin [Nitro-Bid 2%] 0.5 inch TOP Q6HR PRN 09/14/20 [History] Pantoprazole Sodium [Protonix] 40 mg PO DAILY 09/14/20 [History] bisacodyL [Dulcolax] 10 mg RC DAILY PRN 09/14/20 [History] cloNIDine [Catapres] 0.3 mg PO BID 09/14/20 [History] hydrALAZINE [Apresoline] 20 mg PO QID 09/14/20 [History] Ciprofloxacin HCl [Cipro] 500 mg PO BID #4 tablet 09/17/20 [Rx] Oxygen Therapy Mode: Nasal Cannula Oxygen Flow Rate (L/min): 2 Patient Handouts: Heart Failure, Self Care, Living With Heart Failure, Community-Acquired Pneumonia, Adult, [id number] Referrals: Anisa York MD [Primary Care Provider] - (Make a follow-up to see in 7-10 days.) - Discharge Summary/Plan Comment DC Time >30 min.: Yes - General Info Date of Service: 09/17/20 Admission Dx/Problem (Free Text: Admission Diagnosis/Problem Admission Diagnosis/Problem UTI, dementia, sepsis Subjective Update: The patient is more awake today. She is conversant. She has expressed the desire to go home. She is denied any pain. Functional Status: Reports: Pain Controlled, Tolerating Diet - Review of Systems General: Reports: No Symptoms HEENT: Reports: No Symptoms Pulmonary: Reports: No Symptoms Cardiovascular: Reports: No Symptoms Gastrointestinal: Reports: No Symptoms Genitourinary: Reports: No Symptoms Musculoskeletal: Reports: No Symptoms Skin: Reports: No Symptoms Neurological: Reports: No Symptoms Psychiatric: Reports: No Symptoms Systems Review Comment: The patient's review of system is somewhat problematic due to her dementia. - Patient Data Vitals - Most Recent: Last Vital Signs Temp 36.7 C 09/17/20 00:00 Pulse 72 09/17/20 00:00 Resp 22 H 09/17/20 00:00 BP 139/107 H 09/17/20 00:00 Pulse Ox 92 L 09/17/20 08:27 Weight - Most Recent: 102.603 kg I&O - Last 24 hours: Intake & Output 09/16/20 09/17/20 09/17/20 22:59 06:59 14:59 Intake Total 2297 197 Balance 2297 197 Lab Results - Last 24 hrs: Laboratory Results - last 24 hr 09/16/20 09/16/20 09/17/20 Range/Units 11:03 17:10 06:00 WBC 11.14 H (3.98-10.04) K/mm3 RBC 3.52 L (3.98-5.22) M/mm3 Hgb 9.6 L (11.2-15.7) gm/dl Hct 31.8 L (34.1-44.9) % MCV 90.3 (79.4-94.8) fl MCH 27.3 (25.6-32.2) pg MCHC 30.2 L (32.2-35.5) g/dl RDW Std Deviation 49.3 H (36.4-46.3) fL Plt Count 137 L (182-369) K/mm3 MPV 11.9 (9.4-12.3) fl Neut % (Auto) 80.0 H (34.0-71.1) % Lymph % (Auto) 11.4 L (19.3-51.7) % [place] % (Auto) 7.5 (4.7-12.5) % Eos % (Auto) 0.5 L (0.7-5.8) Baso % (Auto) 0.1 (0.1-1.2) % Neut # (Auto) 8.91 H (1.56-6.13) K/mm3 Lymph # (Auto) 1.27 (1.18-3.74) K/mm3 [place] # (Auto) 0.83 H (0.24-0.36) K/mm3 Eos # (Auto) 0.06 (0.04-0.36) K/mm3 Baso # (Auto) 0.01 (0.01-0.08) K/mm3 Sodium (136-145) mEq/L Potassium (3.5-5.1) mEq/L Chloride (98-107) mEq/L Carbon Dioxide (21-32) mEq/L Anion Gap (5-15) BUN (7-18) mg/dL Creatinine (0.55-1.02) mg/dL Est Cr Clr Drug Dosing mL/min Estimated GFR (MDRD) (>60) mL/min BUN/Creatinine Ratio (14-18) Glucose (70-99) mg/dL POC Glucose 385 H 373 H (70-99) mg/dL Calcium (8.5-10.1) mg/dL 09/17/20 Range/Units 06:00 WBC (3.98-10.04) K/mm3 RBC (3.98-5.22) M/mm3 Hgb (11.2-15.7) gm/dl Hct (34.1-44.9) % MCV (79.4-94.8) fl MCH (25.6-32.2) pg MCHC (32.2-35.5) g/dl RDW Std Deviation (36.4-46.3) fL Plt Count (182-369) K/mm3 MPV (9.4-12.3) fl Neut % (Auto) (34.0-71.1) % Lymph % (Auto) (19.3-51.7) % [place] % (Auto) (4.7-12.5) % Eos % (Auto) (0.7-5.8) Baso % (Auto) (0.1-1.2) % Neut # (Auto) (1.56-6.13) K/mm3 Lymph # (Auto) (1.18-3.74) K/mm3 [place] # (Auto) (0.24-0.36) K/mm3 Eos # (Auto) (0.04-0.36) K/mm3 Baso # (Auto) (0.01-0.08) K/mm3 Sodium 142 (136-145) mEq/L Potassium 3.8 (3.5-5.1) mEq/L Chloride 104 (98-107) mEq/L Carbon Dioxide 31 (21-32) mEq/L Anion Gap 10.8 (5-15) BUN 37 H (7-18) mg/dL Creatinine 1.2 H (0.55-1.02) mg/dL Est Cr Clr Drug Dosing 31.96 mL/min Estimated GFR (MDRD) 43 (>60) mL/min BUN/Creatinine Ratio 30.8 H (14-18) Glucose 337 H (70-99) mg/dL POC Glucose (70-99) mg/dL Calcium 8.7 (8.5-10.1) mg/dL TEX Results - Last 24 hrs: Microbiology 09/14/20 21:35 Aerobic Blood Culture - Preliminary Blood - Venous NO GROWTH AFTER 2 DAYS Anaerobic Blood Culture - Preliminary NO GROWTH AFTER 2 DAYS 09/14/20 21:44 Aerobic Blood Culture - Preliminary Blood - Venous - Lab Draw NO GROWTH AFTER 2 DAYS Anaerobic Blood Culture - Final 09/14/20 22:28 Urine Culture - Preliminary Urine Gram Negative Rods Med Orders - Current: Current Medications Acetaminophen (Acetaminophen 325 Mg Tab) 975 mg PO Q6H PRN PRN Reason: Pain/Fever Last Admin: 09/15/20 16:56 Dose: 975 mg Documented by: Albuterol (Albuterol 6.7 Gm Inhaler) 0 gm INH Q6H PRN PRN Reason: Shortness of Breath Albuterol/Ipratropium (Albuterol/Ipratropium 3.0-0.5 Mg/3 Ml Neb Soln) 3 ml NEB Q4H PRN PRN Reason: Shortness Of Breath/wheezing Last Admin: 09/17/20 08:27 Dose: 3 ml Documented by: Bisacodyl (Bisacodyl 10 Mg Supp) 10 mg RECTAL DAILY PRN PRN Reason: Constipation Clonidine HCl (Clonidine 0.1 Mg Tab) 0.3 mg PO BID [facility] Last Admin: 09/16/20 20:03 Dose: 0.3 mg Documented by: Diltiazem HCl (Diltiazem 240 Mg Cap.Er) 240 mg PO DAILY [facility] Last Admin: 09/16/20 08:51 Dose: 240 mg Documented by: Furosemide (Furosemide 40 Mg Tab) 80 mg PO DAILY [facility] Last Admin: 09/16/20 08:51 Dose: 80 mg Documented by: Gabapentin (Gabapentin 300 Mg Cap) 300 mg PO BID [facility] Last Admin: 09/16/20 20:00 Dose: 300 mg Documented by: Heparin Sodium (Porcine) (Heparin Sodium 5,000 Units/Ml Vial) 5,000 units SUBCUT Q8H [facility] Last Admin: 09/17/20 04:21 Dose: 5,000 units Documented by: Hydralazine HCl (Hydralazine 10 Mg Tab) 20 mg PO QID [facility] Last Admin: 09/16/20 20:00 Dose: 20 mg Documented by: Ceftriaxone Sodium 2 gm/ (Sodium Chloride) 100 mls @ 200 mls/hr IV Q24H [facility] Last Admin: 09/16/20 20:03 Dose: 200 mls/hr Documented by: Sodium Chloride (Normal Saline) 1,000 mls @ 75 mls/hr IV ASDIRECTED [facility] Last Admin: 09/16/20 22:15 Dose: 75 mls/hr Documented by: Insulin Human Regular (Insulin Regular, Human 100 Units/Ml 3 Ml Vial) 0 unit SUBCUT TIDPC [facility]; Protocol Last Admin: 09/16/20 18:22 Dose: 10 unit Documented by: Levothyroxine Sodium (Levothyroxine 100 Mcg Tab) 100 mcg PO DAILY@0700 [facility] Last Admin: 09/17/20 06:05 Dose: 100 mcg Documented by: Levothyroxine Sodium (Levothyroxine 75 Mcg Tab) 75 mcg PO 0700 [facility] Last Admin: 09/17/20 06:05 Dose: 75 mcg Documented by: Lisinopril (Lisinopril 20 Mg Tab) 20 mg PO DAILY [facility] Last Admin: 09/16/20 08:53 Dose: 20 mg Documented by: Magnesium Oxide (Magnesium Oxide 400 Mg Tab) 400 mg PO BID [facility] Last Admin: 09/16/20 20:03 Dose: 400 mg Documented by: Metoprolol Succinate (Metoprolol Succinate 50 Mg Tab.Er) 50 mg PO DAILY [facility] Last Admin: 09/16/20 08:52 Dose: 50 mg Documented by: Ondansetron HCl (Ondansetron 4 Mg/2 Ml Sdv) 4 mg IVPUSH Q6H PRN PRN Reason: Nausea/Vomiting Ondansetron HCl (Ondansetron 4 Mg Tab.Dis) 4 mg PO Q4H PRN PRN Reason: nausea, able to take PO Oxycodone HCl (Oxycodone 5 Mg Tab) 5 mg PO Q4H PRN PRN Reason: Pain (moderate 4-6) Pantoprazole Sodium (Pantoprazole 40 Mg Tab.Cr) 40 mg PO DAILY [facility] Last Admin: 09/16/20 08:52 Dose: 40 mg Documented by: Pramipexole Dihydrochloride (Pramipexole 0.25 Mg Tab) 0.25 mg PO BEDTIME [facility] Last Admin: 09/16/20 20:00 Dose: 0.25 mg Documented by: Sertraline HCl (Sertraline 50 Mg Tab) 100 mg PO DAILY [facility] Last Admin: 09/16/20 08:52 Dose: 100 mg Documented by: Sodium Chloride (Sodium Chloride 0.9% 10 Ml Syringe) 10 ml FLUSH ASDIRECTED PRN PRN Reason: Keep Vein Open Last Admin: 09/14/20 21:35 Dose: 10 ml Documented by: Discontinued Medications Aspirin (Aspirin 81 Mg Tab.Chew) 81 mg PO DAILY [facility] Last Admin: 09/15/20 09:41 Dose: 81 mg Documented by: Baclofen (Baclofen 10 Mg Tab) 5 mg PO BID [facility] Last Admin: 09/15/20 09:42 Dose: 5 mg Documented by: Enoxaparin Sodium (Enoxaparin 30 Mg/0.3 Ml Syringe) 30 mg SUBCUT DAILY [facility] Enoxaparin Sodium (Enoxaparin 40 Mg/0.4 Ml Syringe) 40 mg SUBCUT DAILY [facility]IS[facility] Last Admin: 09/15/20 09:52 Dose: 40 mg Documented by: Furosemide (Furosemide 20 Mg/2 Ml Vial) 20 mg IVPUSH NOW ONE Stop: 09/17/20 08:40 Ceftriaxone Sodium 2 gm/ (Sodium Chloride) 100 mls @ 200 mls/hr IV ONETIME ONE Stop: 09/14/20 21:38 Last Admin: 09/14/20 22:02 Dose: 200 mls/hr Documented by: Insulin Human Regular (Insulin Regular, Human 100 Units/Ml 3 Ml Vial) 10 unit SUBCUT ONETIME ONE Stop: 09/14/20 23:31 Last Admin: 09/14/20 23:41 Dose: 10 unit Documented by: Pravastatin Sodium (Pravastatin 20 Mg Tab) 20 mg PO BEDTIME NISHA - Exam Quality Assessment: Reports: Supplemental Oxygen. Denies: DVT Prophylaxis General: Reports: Alert, Cooperative, No Acute Distress. Denies: Oriented HEENT: Reports: Pupils Equal, Pupils Reactive, EOMI, Mucous Membr. Moist/[place] Neck: Reports: Supple, Trachea Midline Lungs: Reports: Clear to Auscultation, Normal Respiratory Effort Cardiovascular: Reports: Regular Rate, Regular Rhythm GI/Abdominal Exam: Normal Bowel Sounds, Soft, Non-Tender, No Distention (Female) Exam: Deferred Rectal (Female) Exam: Deferred Back Exam: Denies: Normal Inspection (Appropriate for age), Full Range of Motion (Appropriate for age) Extremities: Normal Inspection, No Pedal Edema Skin: Reports: Warm, Dry, Intact Neurological: Reports: No New Focal Deficit Psy/Mental Status: Reports: Alert, Normal Affect *Q Meaningful Use (DIS) - VTE *Q VTE Mechanical Contraindications *Q: At Risk for Falls
[2020-09-17] MEDS: Lisinopril 20 MG Tab PO SCH (08:58)
[2020-09-17] MEDS: Magnesium Oxide 400 MG Tab PO SCH (08:59)
[2020-09-17] MEDS: cloNIDine 0.1 MG Tab PO SCH (08:59)
[2020-09-17] MEDS: Furosemide 40 MG Tab PO SCH (08:59)
[2020-09-17] MEDS: Sertraline 50 MG Tab PO SCH (08:59)
[2020-09-17] MEDS: hydrALAZINE 10 MG Tab PO SCH ×2 (08:59→13:18)
[2020-09-17] MEDS: Pantoprazole 40 MG Tab.CR PO SCH (08:59)
[2020-09-17] MEDS: Metoprolol Succinate 50 MG Tab.ER PO SCH (09:00)
[2020-09-17] MEDS: Gabapentin 300 MG Cap PO SCH (09:00)
[2020-09-17] MEDS: Insulin Regular, Human 100 Units/ML 3 ML Vial SUBCUT SCH ×2 (09:00→13:18)
[2020-09-17] MEDS: Diltiazem 240 MG Cap.ER PO SCH (09:00)
[2020-09-17] MEDS ORDERED: Magnesium Hydroxide 400 MG/5 ML Susp 30 ML Cup PO ONE (09:24)
[2020-09-17] MEDS ORDERED: Insulin Lispro 100 UNIT/ML 10 ML Vial SUBCUT ONE (12:53)
[2020-09-17 13:17] VITALS: BP 153/65; PULSE 96
== END 2020-09-17 13:10 | DRG 871 ==
LOC: JD.ED 20:44 → JD.MS 23:15
PROVIDERS: ADMIT Internal Medicine; ATTEND Internal Medicine
DX: A41.89 Other specified sepsis (principal); J96.01 Acute respiratory failure with hypoxia; R09.02 Hypoxemia; J18.9 Pneumonia, unspecified organism; N30.01 Acute cystitis with hematuria; I25.2 Old myocardial infarction; I50.32 Chronic diastolic (congestive) heart failure; R65.20 Severe sepsis without septic shock; G30.9 Alzheimer's disease, unspecified; F02.80 Dementia in other diseases classified elsewhere, unspecified severity, without behavioral disturbance, psychotic disturbance, mood disturbance, and anxiety; Z20.822 Contact with and (suspected) exposure to COVID-19; F32.9 Major depressive disorder, single episode, unspecified; Z66 Do not resuscitate; Z51.5 Encounter for palliative care; I10 Essential (primary) hypertension; H54.7 Unspecified visual loss; E78.00 Pure hypercholesterolemia, unspecified; Z87.440 Personal history of urinary (tract) infections; I11.0 Hypertensive heart disease with heart failure; K21.9 Gastro-esophageal reflux disease without esophagitis; Z79.899 Other long term (current) drug therapy; Z96.649 Presence of unspecified artificial hip joint; E11.43 Type 2 diabetes mellitus with diabetic autonomic (poly)neuropathy; K31.84 Gastroparesis; E03.9 Hypothyroidism, unspecified; E66.9 Obesity, unspecified; E55.9 Vitamin D deficiency, unspecified; E83.42 Hypomagnesemia; E11.42 Type 2 diabetes mellitus with diabetic polyneuropathy; Z79.890 Hormone replacement therapy; Z79.82 Long term (current) use of aspirin; Z79.4 Long term (current) use of insulin; Z98.49 Cataract extraction status, unspecified eye; Z68.37 Body mass index [BMI] 37.0-37.9, adult
CPT/HCPCS: 36415; 71045; 80053; 81001; 82947; 83605; 85025; 86140; 87040 ×2; 87086; 87088; 87186; 94762; J0696; U0002; 80048; 83735; 87641; 94640; 94760; 97162-GP; 97530-GP; A9270-GY; J1644; J1650; J1815-GY; J1940; J7030; J7620-GY

== ENCOUNTER 2020-09-20 14:24 | Inpatient (IN) | payer MEDICARE, BC ==
[2020-09-20] MEDS ORDERED: Sodium Chloride 0.9% 10 ML Syringe FLUSH PRN (14:34)
[2020-09-20] MEDS ORDERED: Piperacillin/Tazobactam 4.5 GM in Sodium Chloride 0.9% 100 ML IV ONE (14:52)
[2020-09-20] MEDS ORDERED: Lactated Ringers 500 ML IV ONE (15:36)
[2020-09-20] MEDS ORDERED: fentaNYL 100 MCG/2 ML SDV IVPUSH ONE (15:46)
--- NOTE | 2020-09-20 15:58 | EDM.PDOC ---
ED HPI GENERAL MEDICAL PROBLEM - General Chief Complaint: Abdominal Pain Stated Complaint: [facility] Time Seen by Provider: 09/20/20 14:31 Source of Information: Reports: EMS, Family History Limitations: Reports: Altered Mental Status - History of Present Illness INITIAL COMMENTS - FREE TEXT/NARRATIVE: 84 yo F [facility] resident, hx CAD with prior NSTEMI, atrial fibrillation, DM, HTN, dementia, recently admitted for UTI/sepsis, presents with abdominal pain and AMS. Per EMS, her pain started last night, she was given morphine 5mg a couple of hours prior to transport to the ED with no relief. Patient is moaning and groaning, unable to provide history. Daughters at the bedside say that she seemed better when she was discharged from the hospital, [facility] had to feed her breakfast this morning which is unusual, usually the patient is confused but conversational. Epigastric Pain Score (Numeric/FACES): 10 - Related Data Allergies Allergy/AdvReac Type Severity Reaction Status Date / Time No Known Allergies Allergy Verified 09/20/20 14:40 Home Meds: Home Meds Furosemide [Lasix] 80 mg PO DAILY 03/31/17 [History] Levothyroxine [Levothroid] 175 mcg PO DAILY 03/31/17 [History] Sertraline [Zoloft] 100 mg PO DAILY 03/31/17 [History] lisinopriL [Zestril] 20 mg PO DAILY 03/31/17 [History] Acetaminophen [Acetaminophen Extra Strength] 650 mg PO BID PRN 11/08/17 [History] Aspirin 81 mg PO DAILY 11/08/17 [History] Magnesium Oxide 400 mg PO BID 11/08/17 [History] Pramipexole Di-HCl [Mirapex] 0.25 mg PO BEDTIME 11/08/17 [History] Cyanocobalamin (Vitamin B12) [Vitamin B12] 500 mcg PO DAILY 11/20/19 [History] Albuterol Sulfate [Proair Digihaler] 2 puff IH Q6HR PRN 09/14/20 [History] Diltiazem [Cardizem CD] 240 mg PO DAILY 09/14/20 [History] Insulin Glargine,Hum.Rec.Anlog [Lantus Solostar] 36 unit SQ ACBREAKFAST 09/14/20 [History] Metoprolol Succinate [Toprol Xl] 50 mg PO DAILY 09/14/20 [History] Nitroglycerin [Nitro-Bid 2%] 0.5 inch TOP Q6HR PRN 09/14/20 [History] Pantoprazole Sodium [Protonix] 40 mg PO DAILY 09/14/20 [History] bisacodyL [Dulcolax] 10 mg RC DAILY PRN 09/14/20 [History] cloNIDine [Catapres] 0.3 mg PO BID 09/14/20 [History] hydrALAZINE [Apresoline] 20 mg PO QID 09/14/20 [History] Acetaminophen [Tylenol Arthritis Pain] 650 mg PO BID 09/20/20 [History] Carbamide Peroxide [Debrox 6.5% Otic Soln] 3 drop EARBOTH TID PRN 09/20/20 [History] Docusate Sodium/Sennosides [Senna Plus] 2 tab PO BID PRN 09/20/20 [History] Ferrous Sulfate [Iron] 325 mg PO DAILY 09/20/20 [History] Insulin Aspart [NovoLOG] 4 units SUBCUT TID 09/20/20 [History] Methyl Salicylate/Menth/Camph [Salonpas 3.1%-6.0%-10.0% Patch] 1 patch TOP BID 09/20/20 [History] Morphine [Morphine 10 MG/5 ML] 5 mg PO Q2H PRN 09/20/20 [History] Pravastatin [Pravachol] 20 mg PO BEDTIME 09/20/20 [History] Past Medical History HEENT History: Reports: Impaired Vision Other HEENT History: Wears glasses Cardiovascular History: Reports: Heart Failure, High Cholesterol, Hypertension, [place] Other Cardiovascular History: acute chronic diastolic CHF Respiratory History: Reports: None Gastrointestinal History: Reports: GERD Other Gastrointestinal History: gastroparesis Genitourinary History: Reports: UTI, Recurrent [employer] History: Reports: Neurological History: Reports: Alzheimers Disease Other Neuro History: memory difficulties Psychiatric History: Reports: Dementia, Depression Endocrine/Metabolic History: Reports: Diabetes, Type II, Hypothyroidism, Obesity/BMI 30+, Vitamin D Deficiency, Other (See Below) Other Endocrine/Metabolic History: diabetic polyneuropathy Other Hematologic History: hypomagnesemia Dermatologic History: Reports: Other (See Below) Other Dermatologic History: open calus to left medial/bottom area of great toe. - Infectious Disease History Infectious Disease History: Reports: Chicken Pox, Measles - Past Surgical History HEENT Surgical History: Reports: Cataract Surgery Other Female Surgeries/Procedures: 10 vaginal deliveries and 2 misccarriages Musculoskeletal Surgical History: Reports: Hip Replacement Other Musculoskeletal Surgeries/Procedures:: this isnt on history portion on the paperwork given by [facility]. Social & Family History - Family History Family Medical History: No Pertinent Family History - Tobacco Use Tobacco Use Status *Q: Current Status Unknown - Caffeine Use Caffeine Use: Reports: Coffee - Living Situation & Occupation Living situation: Reports: , Extended Care Facility Occupation: Retired ED ROS GENERAL - Review of Systems Review Of Systems: See Below Reason Not Obtained: AMS/not answering questions Constitutional: Reports: Malaise, Weakness, Fatigue ED EXAM, GENERAL - Physical Exam Exam: See Below Exam Limited By: Altered Mental Status General Appearance: Moderate Distress, Other (moaning and groaning ) Eye Exam: Bilateral Eye: Normal Inspection Ears: Normal External Exam Nose: Normal Inspection Throat/Mouth: Normal Inspection, Other (dry MM ) Head: Atraumatic, Normocephalic Neck: Normal Inspection, Supple Respiratory/Chest: No Respiratory Distress, No Accessory Muscle Use Cardiovascular: Tachycardia, Irregularly Irregular GI/Abdominal: Soft, No Distention, Other (diffuse TTP, moans when abdomen is palpated ) Extremities: Normal Inspection Neurological: Confused, Disoriented, Slow to Respond Psychiatric: Anxious Skin Exam: Warm, Dry, Intact, Normal Color, No Rash Course - Vital Signs Last Recorded V/S: Last Vital Signs Temp 35.9 C L 09/20/20 16:00 Pulse 118 H 09/20/20 16:00 Resp 18 09/20/20 14:36 BP 153/98 H 09/20/20 16:00 Pulse Ox 23 L 09/20/20 16:00 - Orders/Labs/Meds Orders: Active Orders 24 hr Category Date Time Status EKG 12 Lead [EKG Documentation Completion] [RC] STAT Care 09/20/20 14:34 Active EKG 12 Lead [EKG Documentation Completion] [RC] STAT Care 09/20/20 15:55 Active Peripheral IV Care [RC] . DIRECTED Care 09/20/20 14:34 Active Peripheral IV Care [RC] . DIRECTED Care 09/20/20 14:34 Active Abdomen Pelvis wo Cont [CT] Stat Exams 09/20/20 15:00 Taken Chest 1V Frontal [CR] Stat Exams 09/20/20 15:55 Taken CULTURE BLOOD [BC] Stat Lab 09/20/20 14:45 Received CULTURE BLOOD [BC] Stat Lab 09/20/20 15:05 Received UA W/MICROSCOPIC [URIN] Stat Lab 09/20/20 14:34 Ordered Sodium Chloride 0.9% [Saline Flush] Med 09/20/20 14:34 Active 10 ml FLUSH ASDIRECTED PRN Blood Culture x2 Reflex Set [OM.PC] Stat Oth 09/20/20 14:34 Ordered Blood Culture x2 Reflex Set [OM.PC] Stat Oth 09/20/20 14:51 Ordered Peripheral IV Insertion Adult [OM.PC] Routine Oth 09/20/20 14:34 Ordered Medication Orders Fentanyl (Fentanyl 100 Mcg/2 Ml Sdv) 25 mcg IVPUSH Q4H PRN PRN Reason: Abdominal Pain Last Admin: 09/20/20 17:41 Dose: 25 mcg Documented by: TUNDE Lactated Ringer's (Ringers, Lactated) 1,000 mls @ 75 mls/hr IV ASDIRECTED NISHA Piperacillin Sod/Tazobactam (Sod 4.5 gm/ Sodium Chloride) 100 mls @ 25 mls/hr IV Q8H NISHA Lorazepam (Lorazepam 2 Mg/Ml Sdv) 0.5 mg IVPUSH Q4H PRN PRN Reason: Agitation Scopolamine (Scopolamine 1.5 Mg Transdermal Patch) 1.5 mg TRDERM Q72H PRN PRN Reason: Other Sodium Chloride (Sodium Chloride 0.9% 10 Ml Syringe) 10 ml FLUSH ASDIRECTED PRN PRN Reason: Keep Vein Open Last Admin: 09/20/20 15:13 Dose: 10 ml Documented by: TONIA Labs: Laboratory Tests 09/20/20 09/20/20 09/20/20 Range/Units 14:45 14:45 14:45 WBC 19.25 H (3.98-10.04) K/mm3 RBC 4.51 (3.98-5.22) M/mm3 Hgb 12.6 D (11.2-15.7) gm/dl Hct 39.4 (34.1-44.9) % MCV 87.4 (79.4-94.8) fl MCH 27.9 (25.6-32.2) pg MCHC 32.0 L (32.2-35.5) g/dl RDW Std Deviation 48.2 H (36.4-46.3) fL Plt Count 313 D (182-369) K/mm3 MPV 12.4 H (9.4-12.3) fl Neut % (Auto) 77.7 H (34.0-71.1) % Lymph % (Auto) 12.1 L (19.3-51.7) % [place] % (Auto) 9.9 (4.7-12.5) % Eos % (Auto) 0 L (0.7-5.8) Baso % (Auto) 0.3 (0.1-1.2) % Neut # (Auto) 14.97 H (1.56-6.13) K/mm3 Lymph # (Auto) 2.33 (1.18-3.74) K/mm3 [place] # (Auto) 1.90 H (0.24-0.36) K/mm3 Eos # (Auto) 0.00 L (0.04-0.36) K/mm3 Baso # (Auto) 0.05 (0.01-0.08) K/mm3 Manual Slide Review Abnormal smear PT 13.3 H (9.7-12.0) SECONDS INR 1.25 Sodium 144 (136-145) mEq/L Potassium 4.2 (3.5-5.1) mEq/L Chloride 103 (98-107) mEq/L Carbon Dioxide 30 (21-32) mEq/L Anion Gap 15.2 H (5-15) BUN 46 H (7-18) mg/dL Creatinine 1.6 H (0.55-1.02) mg/dL Est Cr Clr Drug Dosing 21.07 mL/min Estimated GFR (MDRD) 31 (>60) mL/min BUN/Creatinine Ratio 28.8 H (14-18) Glucose 322 H (70-99) mg/dL Lactic Acid (0.4-2.0) mmol/L Calcium 9.5 (8.5-10.1) mg/dL Magnesium 1.7 L (1.8-2.4) mg/dL Total Bilirubin 0.6 (0.2-1.0) mg/dL AST 27 (15-37) U/L ALT 22 (14-59) U/L Alkaline Phosphatase 66 (46-116) U/L Troponin I 2.601 H* (0.00-0.056) ng/mL Total Protein 7.7 (6.4-8.2) g/dl Albumin 2.7 L (3.4-5.0) g/dl Globulin 5.0 gm/dL Albumin/Globulin Ratio 0.5 L (1-2) Lipase 18 L (73-393) U/L 09/20/20 Range/Units 14:45 WBC (3.98-10.04) K/mm3 RBC (3.98-5.22) M/mm3 Hgb (11.2-15.7) gm/dl Hct (34.1-44.9) % MCV (79.4-94.8) fl MCH (25.6-32.2) pg MCHC (32.2-35.5) g/dl RDW Std Deviation (36.4-46.3) fL Plt Count (182-369) K/mm3 MPV (9.4-12.3) fl Neut % (Auto) (34.0-71.1) % Lymph % (Auto) (19.3-51.7) % [place] % (Auto) (4.7-12.5) % Eos % (Auto) (0.7-5.8) Baso % (Auto) (0.1-1.2) % Neut # (Auto) (1.56-6.13) K/mm3 Lymph # (Auto) (1.18-3.74) K/mm3 [place] # (Auto) (0.24-0.36) K/mm3 Eos # (Auto) (0.04-0.36) K/mm3 Baso # (Auto) (0.01-0.08) K/mm3 Manual Slide Review PT (9.7-12.0) SECONDS INR Sodium (136-145) mEq/L Potassium (3.5-5.1) mEq/L Chloride (98-107) mEq/L Carbon Dioxide (21-32) mEq/L Anion Gap (5-15) BUN (7-18) mg/dL Creatinine (0.55-1.02) mg/dL Est Cr Clr Drug Dosing mL/min Estimated GFR (MDRD) (>60) mL/min BUN/Creatinine Ratio (14-18) Glucose (70-99) mg/dL Lactic Acid 2.0 (0.4-2.0) mmol/L Calcium (8.5-10.1) mg/dL Magnesium (1.8-2.4) mg/dL Total Bilirubin (0.2-1.0) mg/dL AST (15-37) U/L ALT (14-59) U/L Alkaline Phosphatase (46-116) U/L Troponin I (0.00-0.056) ng/mL Total Protein (6.4-8.2) g/dl Albumin (3.4-5.0) g/dl Globulin gm/dL Albumin/Globulin Ratio (1-2) Lipase (73-393) U/L Meds: Medications Generic Name Dose Route Start Last Admin Trade Name Freq PRN Reason Stop Dose Admin Fentanyl 25 mcg 09/20/20 16:49 09/20/20 17:41 Fentanyl 100 Mcg/2 Ml Sdv IVPUSH 25 mcg Q4H PRN Administration Abdominal Pain Lactated Ringer's 1,000 mls @ 75 mls/hr 09/20/20 16:45 Ringers, Lactated IV ASDIRECTED NISHA Piperacillin Sod/Tazobactam 100 mls @ 25 mls/hr 09/20/20 23:00 Sod 4.5 gm/ Sodium Chloride IV Q8H NISHA Lorazepam 0.5 mg 09/20/20 16:50 Lorazepam 2 Mg/Ml Sdv IVPUSH Q4H PRN Agitation Scopolamine 1.5 mg 09/20/20 16:51 Scopolamine 1.5 Mg Transdermal Patch TRDERM Q72H PRN Other Sodium Chloride 10 ml 09/20/20 14:34 09/20/20 15:13 Sodium Chloride 0.9% 10 Ml Syringe FLUSH 10 ml ASDIRECTED PRN Administration Keep Vein Open Discontinued Medications Generic Name Dose Route Start Last Admin Trade Name Freq PRN Reason Stop Dose Admin Fentanyl 25 mcg 09/20/20 15:46 09/20/20 16:08 Fentanyl 100 Mcg/2 Ml Sdv IVPUSH 09/20/20 15:47 25 mcg ONETIME ONE Administration Piperacillin Sod/Tazobactam 100 mls @ 200 mls/hr 09/20/20 14:52 09/20/20 15:06 Sod 4.5 gm/ Sodium Chloride IV 09/20/20 15:21 200 mls/hr ONETIME ONE Administration Lactated Ringer's 500 mls @ 1,000 mls/hr 09/20/20 15:36 09/20/20 16:02 Ringers, Lactated IV 09/20/20 16:05 1,000 mls/hr .BOLUS ONE Administration - Re-Assessments/Exams Free Text/Narrative Re-Assessment/Exam: 09/20/20 15:56 EKG shows a-fib with RVR, normal intervals, no significant ST change. Troponin elevated at 2.5. I am very concerned about patient's abdominal exam, she is very tender diffusely, will await CT a/p result prior to making decisions about anticoagulation for NSTEMI. Given tachycardia and concerning abdominal exam, zosyn ordered. Will start with 500 cc bolus of LR given no hypotension and hx CHF. 09/20/20 16:09 CT a/p: patient has free air and small amount of free fluid on CT abdomen/pelvis. Radiologist is concerned R colon/hepatic flexure area may be source. At base of cecum there is a tubular structure, may be perforated appendicitis vs. diverticulitis vs. carcinoma in the hepatic flexure. 09/20/20 17:[address] a/p results extensively with the patient's two daughters who are at the bedside. They understand that patient is very frail, the prognosis is not good, and she is not a surgical candidate. They would like to give the IV antibiotics/fluids and admit her for comfort measures, understanding that her prognosis is poor. She is DNR/DNI, no invasive procedures, comfort measures only. Patient is comfortable at the moment after a dose of fentanyl. Discussed with Dr. Scherer who will admit the patient. Departure - Departure Time of Disposition: 17:57 Disposition: Admitted As Inpatient 67 Clinical Impression: Perforated abdominal viscus, Acute kidney injury, Non-ST elevated myocardial infarction, Elevated troponin Sepsis Qualifiers: Sepsis type: sepsis due to unspecified organism Sepsis acute organ dysfunction status: with acute organ dysfunction Severe sepsis acute organ dysfunction type: acute renal failure Acute renal failure type: unspecified Severe sepsis shock status: without septic shock Qualified Code(s): A41.9 - Sepsis, unspecified organism Altered mental state Qualifiers: Altered mental status type: delirium Qualified Code(s): R41.0 - Disorientation, unspecified - Discharge Information Sepsis Event Note (ED) - Evaluation Sepsis Screening Result: No Definite Risk - Focused Exam Vital Signs: Vital Signs Temp Pulse Resp BP Pulse Ox 09/20/20 16:00 35.9 C L 118 H 153/98 H 23 L 09/20/20 14:36 36.3 C 132 H 18 160/97 H 76 L - My Orders Last 24 Hours: My Active Orders 09/20/20 14:34 EKG 12 Lead [EKG Documentation Completion] [RC] STAT Peripheral IV Care [RC] . DIRECTED Peripheral IV Care [RC] . DIRECTED UA W/MICROSCOPIC [URIN] Stat Sodium Chloride 0.9% [Saline Flush] 10 ml FLUSH ASDIRECTED PRN Blood Culture x2 Reflex Set [OM.PC] Stat Peripheral IV Insertion Adult [OM.PC] Routine 09/20/20 14:45 CULTURE BLOOD [BC] Stat 09/20/20 14:51 Blood Culture x2 Reflex Set [OM.PC] Stat 09/20/20 15:00 Abdomen Pelvis wo Cont [CT] Stat 09/20/20 15:05 CULTURE BLOOD [BC] Stat 09/20/20 15:55 EKG 12 Lead [EKG Documentation Completion] [RC] STAT Chest 1V Frontal [CR] Stat - Assessment/Plan Last 24 Hours: My Active Orders 09/20/20 14:34 EKG 12 Lead [EKG Documentation Completion] [RC] STAT Peripheral IV Care [RC] . DIRECTED Peripheral IV Care [RC] . DIRECTED UA W/MICROSCOPIC [URIN] Stat Sodium Chloride 0.9% [Saline Flush] 10 ml FLUSH ASDIRECTED PRN Blood Culture x2 Reflex Set [OM.PC] Stat Peripheral IV Insertion Adult [OM.PC] Routine 09/20/20 14:45 CULTURE BLOOD [BC] Stat 09/20/20 14:51 Blood Culture x2 Reflex Set [OM.PC] Stat 09/20/20 15:00 Abdomen Pelvis wo Cont [CT] Stat 09/20/20 15:05 CULTURE BLOOD [BC] Stat 09/20/20 15:55 EKG 12 Lead [EKG Documentation Completion] [RC] STAT Chest 1V Frontal [CR] Stat
[2020-09-20] MEDS ORDERED: Lactated Ringers 1,000 ML IV SCH (16:45)
[2020-09-20] MEDS ORDERED: fentaNYL 100 MCG/2 ML SDV IVPUSH PRN (16:49)
[2020-09-20] MEDS ORDERED: LORazepam 2 MG/ML SDV IVPUSH PRN (16:50)
[2020-09-20] MEDS ORDERED: Scopolamine 1.5 MG Transdermal Patch TRDERM PRN (16:51)
--- NOTE | 2020-09-20 16:58 | PCM.HP.2 ---
H&P History of Present Illness - General Date of Service: 09/20/20 Admit Problem/Dx: Admission Diagnosis/Problem Admission Diagnosis/Problem Perforated abdominal viscus Source of Information: Patient, Family History Limitations: Reports: Other (Dementia, pain) - History of Present Illness Initial Comments - Free Text/Narative: The patient is an 84-year-old lady who had presented to the emergency department with a complaint of abdominal pain. This was noted by caretakers at her alf. The patient does have dementia and she is not able to participate in her history of physical. The patient's daughter is here. Information therefore has been taken from the previous medical records and also ER notes. The patient was just discharged from acute hospitalization on September 17, 2020 on antibiotics for treatment of urinary tract infection. The patient had pansensitive Klebsiella in the urine cultures. CT scan of the patient's abdomen and pelvis showed free air from perforated abdominal viscus. The patient's family did not want to have accelerated care but wanted the patient to be only on IV antibiotics and kept comfortable. They are aware of the prognosis. Onset of Symptoms: Reports: Unknown/Unsure Duration of Symptoms: Reports: Day(s): Location: Reports: Abdomen Improves with: Reports: None Worsens with: Reports: None Associated Symptoms: Reports: No Other Symptoms Epigastric Pain Score (Numeric/FACES): 10 - Related Data Allergies/Adverse Reactions: Allergies Allergy/AdvReac Type Severity Reaction Status Date / Time No Known Allergies Allergy Verified 09/20/20 14:40 Home Medications: Home Meds Furosemide [Lasix] 80 mg PO DAILY 03/31/17 [History] Levothyroxine [Levothroid] 175 mcg PO DAILY 03/31/17 [History] Sertraline [Zoloft] 100 mg PO DAILY 03/31/17 [History] lisinopriL [Zestril] 20 mg PO DAILY 03/31/17 [History] Acetaminophen [Acetaminophen Extra Strength] 650 mg PO BID PRN 11/08/17 [History] Aspirin 81 mg PO DAILY 11/08/17 [History] Magnesium Oxide 400 mg PO BID 11/08/17 [History] Pramipexole Di-HCl [Mirapex] 0.25 mg PO BEDTIME 11/08/17 [History] Cyanocobalamin (Vitamin B12) [Vitamin B12] 500 mcg PO DAILY 11/20/19 [History] Albuterol Sulfate [Proair Digihaler] 2 puff IH Q6HR PRN 09/14/20 [History] Diltiazem [Cardizem CD] 240 mg PO DAILY 09/14/20 [History] Insulin Glargine,Hum.Rec.Anlog [Lantus Solostar] 36 unit SQ ACBREAKFAST 09/14/20 [History] Metoprolol Succinate [Toprol Xl] 50 mg PO DAILY 09/14/20 [History] Nitroglycerin [Nitro-Bid 2%] 0.5 inch TOP Q6HR PRN 09/14/20 [History] Pantoprazole Sodium [Protonix] 40 mg PO DAILY 09/14/20 [History] bisacodyL [Dulcolax] 10 mg RC DAILY PRN 09/14/20 [History] cloNIDine [Catapres] 0.3 mg PO BID 09/14/20 [History] hydrALAZINE [Apresoline] 20 mg PO QID 09/14/20 [History] Acetaminophen [Tylenol Arthritis Pain] 650 mg PO BID 09/20/20 [History] Carbamide Peroxide [Debrox 6.5% Otic Soln] 3 drop EARBOTH TID PRN 09/20/20 [His tory] Docusate Sodium/Sennosides [Senna Plus] 2 tab PO BID PRN 09/20/20 [History] Ferrous Sulfate [Iron] 325 mg PO DAILY 09/20/20 [History] Insulin Aspart [NovoLOG] 4 units SUBCUT TID 09/20/20 [History] Methyl Salicylate/Menth/Camph [Salonpas 3.1%-6.0%-10.0% Patch] 1 patch TOP BID 09/20/20 [History] Morphine [Morphine 10 MG/5 ML] 5 mg PO Q2H PRN 09/20/20 [History] Pravastatin [Pravachol] 20 mg PO BEDTIME 09/20/20 [History] Past Medical History HEENT History: Reports: Impaired Vision Other HEENT History: Wears glasses Cardiovascular History: Reports: Heart Failure, High Cholesterol, Hypertension, [place] Other Cardiovascular History: acute chronic diastolic CHF Respiratory History: Reports: None Gastrointestinal History: Reports: GERD Other Gastrointestinal History: gastroparesis Genitourinary History: Reports: UTI, Recurrent [employer] History: Reports: Neurological History: Reports: Alzheimers Disease Other Neuro History: memory difficulties Psychiatric History: Reports: Dementia, Depression Endocrine/Metabolic History: Reports: Diabetes, Type II, Hypothyroidism, Obesity/BMI 30+, Vitamin D Deficiency, Other (See Below) Other Endocrine/Metabolic History: diabetic polyneuropathy Other Hematologic History: hypomagnesemia Dermatologic History: Reports: Other (See Below) Other Dermatologic History: open calus to left medial/bottom area of great toe. - Infectious Disease History Infectious Disease History: Reports: Chicken Pox, Measles - Past Surgical History HEENT Surgical History: Reports: Cataract Surgery Other Female Surgeries/Procedures: 10 vaginal deliveries and 2 misccarriages Musculoskeletal Surgical History: Reports: Hip Replacement Other Musculoskeletal Surgeries/Procedures:: this isnt on history portion on the paperwork given by [employer]. Social & Family History - Family History Family Medical History: No Pertinent Family History - Tobacco Use Tobacco Use Status *Q: Current Status Unknown - Caffeine Use Caffeine Use: Reports: Coffee - Living Situation & Occupation Living situation: Reports: , Extended Care Facility Occupation: Retired H&P Review of Systems - Review of Systems: Review Of Systems: Unable To Obtain Reason Not Obtained: Patient is altered mental status with dementia. Exam - Exam Exam: See Below - Vital Signs Vital Signs: Last Vital Signs Temp 35.9 C L 09/20/20 16:00 Pulse 118 H 09/20/20 16:00 Resp 18 09/20/20 14:36 BP 153/98 H 09/20/20 16:00 Pulse Ox 23 L 09/20/20 16:00 Weight: 101.605 kg - Exam Quality Assessment: No: Supplemental Oxygen, DVT Prophylaxis General: Alert, Moderate Distress. No: Oriented HEENT: Conjunctiva Clear, EACs Clear, Hearing Intact, PERRLA. No: Mucosa Moist & [place] Neck: Supple, Trachea Midline Lungs: Clear to Auscultation, Normal Respiratory Effort Cardiovascular: Regular Rhythm, Tachycardia GI/Abdominal Exam: Soft, No Distention, Tender (Generalized). No: Normal Bowel Sounds (Decreased), Guarding, Rigid, Rebound (Female) Exam: Deferred Rectal (Female) Exam: Deferred Back Exam: No: Normal Inspection (Appropriate for age) Extremities: Pedal Edema. No: Normal Inspection (Appropriate for age, kyphosis) Skin: Warm, Dry, Intact Psychiatric: Alert - Patient Data Lab Results Last 24 hrs: Laboratory Results - last 24 hr 09/20/20 09/20/20 09/20/20 Range/Units 14:45 14:45 14:45 WBC 19.25 H (3.98-10.04) K/mm3 RBC 4.51 (3.98-5.22) M/mm3 Hgb 12.6 D (11.2-15.7) gm/dl Hct 39.4 (34.1-44.9) % MCV 87.4 (79.4-94.8) fl MCH 27.9 (25.6-32.2) pg MCHC 32.0 L (32.2-35.5) g/dl RDW Std Deviation 48.2 H (36.4-46.3) fL Plt Count 313 D (182-369) K/mm3 MPV 12.4 H (9.4-12.3) fl Neut % (Auto) 77.7 H (34.0-71.1) % Lymph % (Auto) 12.1 L (19.3-51.7) % [place] % (Auto) 9.9 (4.7-12.5) % Eos % (Auto) 0 L (0.7-5.8) Baso % (Auto) 0.3 (0.1-1.2) % Neut # (Auto) 14.97 H (1.56-6.13) K/mm3 Lymph # (Auto) 2.33 (1.18-3.74) K/mm3 [place] # (Auto) 1.90 H (0.24-0.36) K/mm3 Eos # (Auto) 0.00 L (0.04-0.36) K/mm3 Baso # (Auto) 0.05 (0.01-0.08) K/mm3 Manual Slide Review Abnormal smear PT 13.3 H (9.7-12.0) SECONDS INR 1.25 Sodium 144 (136-145) mEq/L Potassium 4.2 (3.5-5.1) mEq/L Chloride 103 (98-107) mEq/L Carbon Dioxide 30 (21-32) mEq/L Anion Gap 15.2 H (5-15) BUN 46 H (7-18) mg/dL Creatinine 1.6 H (0.55-1.02) mg/dL Est Cr Clr Drug Dosing 21.07 mL/min Estimated GFR (MDRD) 31 (>60) mL/min BUN/Creatinine Ratio 28.8 H (14-18) Glucose 322 H (70-99) mg/dL Lactic Acid (0.4-2.0) mmol/L Calcium 9.5 (8.5-10.1) mg/dL Magnesium 1.7 L (1.8-2.4) mg/dL Total Bilirubin 0.6 (0.2-1.0) mg/dL AST 27 (15-37) U/L ALT 22 (14-59) U/L Alkaline Phosphatase 66 (46-116) U/L Troponin I 2.601 H* (0.00-0.056) ng/mL Total Protein 7.7 (6.4-8.2) g/dl Albumin 2.7 L (3.4-5.0) g/dl Globulin 5.0 gm/dL Albumin/Globulin Ratio 0.5 L (1-2) Lipase 18 L (73-393) U/L 09/20/20 Range/Units 14:45 WBC (3.98-10.04) K/mm3 RBC (3.98-5.22) M/mm3 Hgb (11.2-15.7) gm/dl Hct (34.1-44.9) % MCV (79.4-94.8) fl MCH (25.6-32.2) pg MCHC (32.2-35.5) g/dl RDW Std Deviation (36.4-46.3) fL Plt Count (182-369) K/mm3 MPV (9.4-12.3) fl Neut % (Auto) (34.0-71.1) % Lymph % (Auto) (19.3-51.7) % [place] % (Auto) (4.7-12.5) % Eos % (Auto) (0.7-5.8) Baso % (Auto) (0.1-1.2) % Neut # (Auto) (1.56-6.13) K/mm3 Lymph # (Auto) (1.18-3.74) K/mm3 [place] # (Auto) (0.24-0.36) K/mm3 Eos # (Auto) (0.04-0.36) K/mm3 Baso # (Auto) (0.01-0.08) K/mm3 Manual Slide Review PT (9.7-12.0) SECONDS INR Sodium (136-145) mEq/L Potassium (3.5-5.1) mEq/L Chloride (98-107) mEq/L Carbon Dioxide (21-32) mEq/L Anion Gap (5-15) BUN (7-18) mg/dL Creatinine (0.55-1.02) mg/dL Est Cr Clr Drug Dosing mL/min Estimated GFR (MDRD) (>60) mL/min BUN/Creatinine Ratio (14-18) Glucose (70-99) mg/dL Lactic Acid 2.0 (0.4-2.0) mmol/L Calcium (8.5-10.1) mg/dL Magnesium (1.8-2.4) mg/dL Total Bilirubin (0.2-1.0) mg/dL AST (15-37) U/L ALT (14-59) U/L Alkaline Phosphatase (46-116) U/L Troponin I (0.00-0.056) ng/mL Total Protein (6.4-8.2) g/dl Albumin (3.4-5.0) g/dl Globulin gm/dL Albumin/Globulin Ratio (1-2) Lipase (73-393) U/L Result Diagrams: 09/20/20 14:45 09/20/20 14:45 Sepsis Event Note - Evaluation Sepsis Screening Result: No Definite Risk - Focused Exam Vital Signs: Vital Signs Temp Pulse Resp BP Pulse Ox 09/20/20 16:00 35.9 C L 118 H 153/98 H 23 L 09/20/20 14:36 36.3 C 132 H 18 160/97 H 76 L *Q Meaningful Use (ADM) - VTE *Q VTE Mechanical Contraindications *Q: Bilateral Lower Edema VTE Pharmacological Contraindications *Q: Risk of Bleeding - Problem List (1) Perforated abdominal viscus SNOMED Code(s): 52445914 ICD Code: R19.8 - OTH SYMPTOMS AND SIGNS INVOLVING THE DGSTV SYS AND ABDOMEN Status: Acute Priority: High Current Visit: Yes (2) Intra-abdominal free air of unknown etiology SNOMED Code(s): 67154327 ICD Code: K66.8 - OTHER SPECIFIED DISORDERS OF PERITONEUM Status: Acute Priority: High Current Visit: Yes (3) Sinus tachycardia SNOMED Code(s): 66876549 ICD Code: R00.0 - TACHYCARDIA, UNSPECIFIED Status: Acute Priority: High Current Visit: Yes (4) Dementia SNOMED Code(s): 18622963 ICD Code: F03.90 - UNSPECIFIED DEMENTIA WITHOUT BEHAVIORAL DISTURBANCE S tatus: Chronic Priority: Medium Current Visit: Yes Qualifiers: Dementia type: Alzheimer's disease Alzheimer's disease onset: unspecified onset Dementia behavioral disturbance: without behavioral disturbance Problem List Initiated/Reviewed/Updated: Yes Orders Last 24hrs: Active Orders 24 hr Category Date Time Status Patient Status [ADT] Routine ADT 09/20/20 16:44 Ordered Bedrest Bedside Commode [RC] ASDIRECTED Care 09/20/20 16:44 Ordered Cardiac Monitoring [RC] CONTINUOUS Care 09/20/20 16:46 Ordered EKG 12 Lead [EKG Documentation Completion] [RC] STAT Care 09/20/20 14:34 Active EKG 12 Lead [EKG Documentation Completion] [RC] STAT Care 09/20/20 15:55 Active Oxygen Therapy [RC] PRN Care 09/20/20 16:44 Ordered Peripheral IV Care [RC] . DIRECTED Care 09/20/20 14:34 Active Peripheral IV Care [RC] . DIRECTED Care 09/20/20 14:34 Active VTE/DVT Education [RC] PER UNIT ROUTINE Care 09/20/20 16:44 Ordered Vital Signs [RC] Q4H Care 09/20/20 16:44 Ordered Nothing per Oral Now Diet [DIET] Diet 09/20/20 Dinner Ordered Abdomen Pelvis wo Cont [CT] Stat Exams 09/20/20 15:00 Taken Chest 1V Frontal [CR] Stat Exams 09/20/20 15:55 Taken CULTURE BLOOD [BC] Stat Lab 09/20/20 14:45 Received CULTURE BLOOD [BC] Stat Lab 09/20/20 15:05 Received UA W/MICROSCOPIC [URIN] Stat Lab 09/20/20 14:34 Ordered LORazepam [Ativan] Med 09/20/20 16:50 Ordered 0.5 mg IVPUSH Q4H PRN Lactated Ringers [Ringers, Lactated] 1,000 ml Med 09/20/20 16:45 Ordered IV ASDIRECTED Piperacillin/Tazobactam [Piperacil-Tazobact] 4.5 gm Med 09/20/20 16:45 Ordered Sodium Chloride 0.9% [Normal Saline] 100 ml IV Q8H Scopolamine [Transderm-Scop] Med 09/20/20 16:51 Ordered 1.5 mg TRDERM Q72H PRN Sodium Chloride 0.9% [Saline Flush] Med 09/20/20 14:34 Active 10 ml FLUSH ASDIRECTED PRN fentaNYL [Sublimaze] Med 09/20/20 16:49 Ordered 25 mcg IVPUSH Q4H PRN Blood Culture x2 Reflex Set [OM.PC] Stat Ot 09/20/20 14:34 Ordered Blood Culture x2 Reflex Set [OM.PC] Stat Ot 09/20/20 14:51 Ordered Peripheral IV Insertion Adult [OM.PC] Routine Ot 09/20/20 14:34 Ordered VTE Mechanical Contraindications [AST] Per Unit Routine Ot 09/20/20 16:44 Ordered VTE Pharmacological Contraindications [AST] Per Unit Ot 09/20/20 16:44 Ordered Routine Resuscitation Status Routine Resus Stat 09/20/20 16:44 Ordered Medication Orders Sodium Chloride (Sodium Chloride 0.9% 10 Ml Syringe) 10 ml FLUSH ASDIRECTED PRN PRN Reason: Keep Vein Open Last Admin: 09/20/20 15:13 Dose: 10 ml Documented by: TONIA Assessment/Plan Comment:: The patient is an 84-year-old lady who has been admitted to acute hospitalization. The patient's daughters had asked about hospice and if the patient does linger beyond 3 days then that may be a consideration. For now the patient does have a perforated viscus and free abdominal air. The patient's daughters do not want any accelerated treatment for her and certainly no surgery. Patient will be retained on pain control with the use of fentanyl 25 mcg every 4 hours as needed to help control her pain. The patient will also be placed on Ativan for agitation 0.5 mg IV every 4 hours as needed. I have also ordered a scopolamine patch to help with oral secretions. The patient is currently in a DO NOT INTUBATE DO NOT RESUSCITATE category and palliative measures will be instituted. I have discontinued all the patient's other medications. She will be kept on telemetry for now. I will not order any test unless necessary. The patient will be kept comfortable for now. She also be kept n.p.o. and fluids gently resuscitating the patient at 75 mL/h. Overall, the patient's prognosis is grim. I have discussed this in detail with the patient's daughters. - Mortality Measure Prognosis:: Poor
[2020-09-20 19:05] VITALS: BP 93/38; PULSE 110
[2020-09-20] MEDS ORDERED: Ondansetron 4 MG/2 ML SDV IVPUSH PRN (19:47)
[2020-09-20] MEDS ORDERED: oxyCODONE 5 MG Tab PO PRN (19:48)
[2020-09-20] MEDS: HYDROmorphone 1 MG/ML Syringe IVPUSH PRN ×3 (19:59→23:16)
[2020-09-20] MEDS: LORazepam 2 MG/ML SDV IVPUSH PRN ×3 (20:00→23:16)
[2020-09-20] MEDS ORDERED: Piperacillin/Tazobactam 4.5 GM in Sodium Chloride 0.9% 100 ML IV SCH (23:00)
--- NOTE | 2020-09-21 07:28 | CT ---
CT abdomen and pelvis Technique: Multiple axial sections were obtained from above the dome of the diaphragm inferiorly through the pubic symphysis. Intravenous and oral contrast were not utilized. Reconstructed coronal and sagittal images were obtained. Comparison: No prior abdominal imaging is available. Findings: Very minimal pleural effusion is seen within the right lung base. Mild areas of increased density are seen within both lung bases most likely due to pulmonary fibrosis or atelectasis. Small amount of free air is seen around the liver as well as within the right lower abdomen. Minimal free fluid is seen within the abdomen and pelvis. Heart is mildly enlarged. Calcified gallstones are seen. Noncontrast appearance of the liver shows no focal abnormality. Spleen size is normal. Adrenal glands show no nodule. Kidneys show no abnormal calcifications or hydronephrosis. Pancreas shows no discrete abnormality. Diffuse atherosclerotic calcification is noted within the abdominal aorta and iliac arteries. No aneurysm is seen. No retroperitoneal adenopathy is seen. No pelvic mass or adenopathy is appreciated. Small fat-containing umbilical hernia is seen which also contains a small amount of free air. Inflammatory change is seen within the right lower abdomen. Appendix is not definitely visualized. Inflammatory change could represent ruptured appendix, please correlate. Slight areas of increased stool are seen within the colon as well as gas. Bone window settings were reviewed. Scattered degenerative change is noted throughout the spine with no acute osseous abnormality being seen. Right hip prosthesis is noted. Impression: 1. Inflammatory change within the right lower abdomen. Appendix is not definitely visualized but given the location difficult to exclude ruptured appendicitis. Free air is noted which could relate to this finding. There is also free fluid being seen around the liver as well as within the cul-de-sac. 2. Minimal right-sided pleural effusion as well as increased density within both lung bases which most likely represents areas of scarring or atelectasis. 3. Cholelithiasis is noted. 4. Other findings believed to be incidental as noted above. Diagnostic code #5 I agree with preliminary report from [facility], finalized on 09/20/20, 5:14 PM CDT, code 1
--- NOTE | 2020-09-21 07:30 | CR ---
Chest: Portable view of the chest was obtained. Comparison: Prior chest x-ray of 09/16/20. Limited inspiratory effort is seen. Heart size is slightly enlarged. Upper mediastinum is normal. Lungs show no acute parenchymal change. Osseous structures show mild scattered degenerative change within the spine. Impression: 1. Limited inspiratory study. 2. Nothing acute is definitely appreciated on portable chest x-ray. Diagnostic code #2
--- NOTE | 2020-09-24 20:16 | PCM.DCSUM1 ---
Discharge Summary - Hospital Course HPI Initial Comments: The patient is an 84-year-old lady who had presented to the emergency department with a complaint of abdominal pain. This was noted by caretakers at her correction. The patient does have dementia and she is not able to participate in her history of physical. The patient's daughter is here. Information therefore has been taken from the previous medical records and also ER notes. The patient was just discharged from acute hospitalization on September 17, 2020 on antibiotics for treatment of urinary tract infection. The patient had pansensitive Klebsiella in the urine cultures. CT scan of the patient's abdomen and pelvis showed free air from perforated abdominal viscus. The patient's family did not want to have accelerated care but wanted the patient to be only on IV antibiotics and kept comfortable. They are aware of the prognosis. Hospital Course The patient was admitted to hospital. Comfort Care orders were placed. The patient before I came on service. - Discharge Data Discharge Date: 09/21/20 Discharge Disposition: 20 Condition: - Referral to Home Health Primary Care Physician: Anisa York MD - Discharge Plan *PRESCRIPTION DRUG MONITORING PROGRAM REVIEWED*: Not Applicable *COPY OF PRESCRIPTION DRUG MONITORING REPORT IN PATIENT ROCHELLE: Not Applicable Home Medications: Home Meds Furosemide [Lasix] 80 mg PO DAILY 03/31/17 [History] Levothyroxine [Levothroid] 175 mcg PO DAILY 03/31/17 [History] Sertraline [Zoloft] 100 mg PO DAILY 03/31/17 [History] lisinopriL [Zestril] 20 mg PO DAILY 03/31/17 [History] Acetaminophen [Acetaminophen Extra Strength] 650 mg PO BID PRN 11/08/17 [History] Aspirin 81 mg PO DAILY 11/08/17 [History] Magnesium Oxide 400 mg PO BID 11/08/17 [History] Pramipexole Di-HCl [Mirapex] 0.25 mg PO BEDTIME 11/08/17 [History] Cyanocobalamin (Vitamin B12) [Vitamin B12] 500 mcg PO DAILY 11/20/19 [History] Albuterol Sulfate [Proair Digihaler] 2 puff IH Q6HR PRN 09/14/20 [History] Diltiazem [Cardizem CD] 240 mg PO DAILY 09/14/20 [History] Insulin Glargine,Hum.Rec.Anlog [Lantus Solostar] 36 unit SQ ACBREAKFAST 09/14/20 [History] Metoprolol Succinate [Toprol Xl] 50 mg PO DAILY 09/14/20 [History] Nitroglycerin [Nitro-Bid 2%] 0.5 inch TOP Q6HR PRN 09/14/20 [History] Pantoprazole Sodium [Protonix] 40 mg PO DAILY 09/14/20 [History] bisacodyL [Dulcolax] 10 mg RC DAILY PRN 09/14/20 [History] cloNIDine [Catapres] 0.3 mg PO BID 09/14/20 [History] hydrALAZINE [Apresoline] 20 mg PO QID 09/14/20 [History] Acetaminophen [Tylenol Arthritis Pain] 650 mg PO BID 09/20/20 [History] Carbamide Peroxide [Debrox 6.5% Otic Soln] 3 drop EARBOTH TID PRN 09/20/20 [Hist ory] Docusate Sodium/Sennosides [Senna Plus] 2 tab PO BID PRN 09/20/20 [History] Ferrous Sulfate [Iron] 325 mg PO DAILY 09/20/20 [History] Insulin Aspart [NovoLOG] 4 units SUBCUT TID 09/20/20 [History] Methyl Salicylate/Menth/Camph [Salonpas 3.1%-6.0%-10.0% Patch] 1 patch TOP BID 09/20/20 [History] Morphine [Morphine 10 MG/5 ML] 5 mg PO Q2H PRN 09/20/20 [History] Pravastatin [Pravachol] 20 mg PO BEDTIME 09/20/20 [History] Forms: ED Department Discharge Referrals: Anisa York MD [Primary Care Provider] - - Discharge Summary/Plan Comment DC Time >30 min.: No - Patient Data Vitals - Most Recent: Last Vital Signs Temp 97.9 F 09/20/20 18:58 Pulse 110 H 09/20/20 18:58 Resp 24 H 09/20/20 18:58 BP 93/38 L 09/20/20 18:58 Pulse Ox 97 09/20/20 18:58 Weight - Most Recent: 227 lb 9.6 oz TEX Results - Last 24 hrs: Microbiology 09/20/20 15:05 Aerobic Blood Culture - Preliminary Blood - Venous - Lab Draw NO GROWTH AFTER 4 DAYS Anaerobic Blood Culture - Final 09/20/20 14:45 Aerobic Blood Culture - Preliminary Blood - Venous NO GROWTH AFTER 4 DAYS Anaerobic Blood Culture - Final Med Orders - Current: Current Medications Discontinued Medications Fentanyl (Fentanyl 100 Mcg/2 Ml Sdv) 25 mcg IVPUSH ONETIME ONE Stop: 09/20/20 15:47 Last Admin: 09/20/20 16:08 Dose: 25 mcg Documented by: Fentanyl (Fentanyl 100 Mcg/2 Ml Sdv) 25 mcg IVPUSH Q4H PRN PRN Reason: Abdominal Pain Last Admin: 09/20/20 17:41 Dose: 25 mcg Documented by: Hydromorphone HCl (Hydromorphone 1 Mg/Ml Syringe) 1 mg IVPUSH Q1H PRN PRN Reason: Pain Last Admin: 09/20/20 23:16 Dose: 1 mg Documented by: Piperacillin Sod/Tazobactam (Sod 4.5 gm/ Sodium Chloride) 100 mls @ 200 mls/hr IV ONETIME ONE Stop: 09/20/20 15:21 Last Admin: 09/20/20 15:06 Dose: 200 mls/hr Documented by: Lactated Ringer's (Ringers, Lactated) 500 mls @ 1,000 mls/hr IV .BOLUS ONE Stop: 09/20/20 16:05 Last Admin: 09/20/20 16:02 Dose: 1,000 mls/hr Documented by: Lactated Ringer's (Ringers, Lactated) 1,000 mls @ 75 mls/hr IV ASDIRECTED [facility] Piperacillin Sod/Tazobactam (Sod 4.5 gm/ Sodium Chloride) 100 mls @ 25 mls/hr IV Q8H NISHA Lorazepam (Lorazepam 2 Mg/Ml Sdv) 0.5 mg IVPUSH Q4H PRN PRN Reason: Agitation Lorazepam (Lorazepam 2 Mg/Ml Sdv) 0.5 mg IVPUSH Q1H PRN PRN Reason: Anxiety Last Admin: 09/20/20 23:16 Dose: 0.5 mg Documented by: Ondansetron HCl (Ondansetron 4 Mg/2 Ml Sdv) 4 mg IVPUSH Q6H PRN PRN Reason: Nausea/Vomiting Oxycodone HCl (Oxycodone 5 Mg Tab) 5 mg PO Q4H PRN PRN Reason: Pain Scopolamine (Scopolamine 1.5 Mg Transdermal Patch) 1.5 mg TRDERM Q72H PRN PRN Reason: Other Last Admin: 09/20/20 20:00 Dose: 1.5 mg Documented by: Sodium Chloride (Sodium Chloride 0.9% 10 Ml Syringe) 10 ml FLUSH ASDIRECTED PRN PRN Reason: Keep Vein Open Last Admin: 09/20/20 15:13 Dose: 10 ml Documented by: *Q Meaningful Use (DIS) - VTE *Q VTE Mechanical Contraindications *Q: Bilateral Lower Edema VTE Pharmacological Contraindications *Q: Risk of Bleeding
== END 2020-09-21 02:20 | disposition expired | DRG 951 ==
LOC: JD.ED 14:24 → JD.MS 16:44
PROVIDERS: ADMIT Internal Medicine; ATTEND Internal Medicine
DX: Z51.5 Encounter for palliative care (principal); K63.1 Perforation of intestine (nontraumatic); A41.9 Sepsis, unspecified organism; K66.8 Other specified disorders of peritoneum; R41.0 Disorientation, unspecified; R00.0 Tachycardia, unspecified; R65.20 Severe sepsis without septic shock; N17.9 Acute kidney failure, unspecified; I50.32 Chronic diastolic (congestive) heart failure; Z66 Do not resuscitate; Z20.822 Contact with and (suspected) exposure to COVID-19; I50.33 Acute on chronic diastolic (congestive) heart failure; H54.7 Unspecified visual loss; E78.00 Pure hypercholesterolemia, unspecified; I11.0 Hypertensive heart disease with heart failure; K21.9 Gastro-esophageal reflux disease without esophagitis; E11.42 Type 2 diabetes mellitus with diabetic polyneuropathy; E11.43 Type 2 diabetes mellitus with diabetic autonomic (poly)neuropathy; K31.84 Gastroparesis; G30.9 Alzheimer's disease, unspecified; F02.80 Dementia in other diseases classified elsewhere, unspecified severity, without behavioral disturbance, psychotic disturbance, mood disturbance, and anxiety; F32.9 Major depressive disorder, single episode, unspecified; E03.9 Hypothyroidism, unspecified; E66.9 Obesity, unspecified; E55.9 Vitamin D deficiency, unspecified; E83.42 Hypomagnesemia; I48.91 Unspecified atrial fibrillation; I25.10 Atherosclerotic heart disease of native coronary artery without angina pectoris; Z96.649 Presence of unspecified artificial hip joint; Z79.890 Hormone replacement therapy; Z79.82 Long term (current) use of aspirin; Z79.899 Other long term (current) drug therapy; Z79.4 Long term (current) use of insulin; I25.2 Old myocardial infarction; Z87.440 Personal history of urinary (tract) infections; Z98.49 Cataract extraction status, unspecified eye; Z68.39 Body mass index [BMI] 39.0-39.9, adult
CPT/HCPCS: 36415; 71045; 74176; 80053; 83605; 83690; 83735; 84484; 85025; 85610; 87040 ×2; 93005 ×2; J2543; J3010; J7120; 96365; 96375; 96376; 99285-25; A9270-GY; J1170; J2060; U0002